=== PATIENT | male | born 1955 ===

== ENCOUNTER 2020-06-29 06:09 | Outpatient (REF) | payer BC, SELFPAY ==
[2020-06-29 11:13] LABS: MANUAL DIFF FLAG NO
[2020-06-29 11:33] LABS: Basophils Absolute Auto 0.1 X10*3/uL (0.0-0.2); Basophils Percent Auto 0.8 % (0-2); Eosinophils Absolute Auto 0.6 X10*3/uL (0.0-0.4); Eosinophils Percent Auto 4.4 % (0-4); Hematocrit 47.5 % (42-52); Hemoglobin 15.5 g/dl (14.0-18.0); Imm Gran Abs Auto 0.13 X10*3/uL (0.00-0.03); Imm Gran Pct Auto 0.9 % (0.0-0.4); Lymphocytes Absolute Auto 4.3 X10*3/uL (1.2-4.9); Lymphocytes Percent Auto 30.5 % (20-40); Mean Corpuscular HGB Conc 32.6 g/dl (31.0-36.0); Mean Corpuscular Volume 92.1 fL (80-98); Mean Platelet Volume 11.8 fL (9.4-12.4); Monocytes Absolute Auto 1.1 X10*3/uL (0.1-1.2); Monocytes Percent Auto 7.8 % (2-11); Neutrophils Absolute Auto 7.9 X10*3/uL (2.0-8.3); Neutrophils Percent Auto 55.6 % (45-73); Platelet Count 298 X10*3/uL (160-400); Red Blood Count 5.16 X10*6/uL (4.60-5.80); Red Cell Distribution Width 13.2 % (11.0-16.0); White Blood Count 14.2 X10*3/uL (4.8-10.8)
[2020-06-29 12:13] LABS: Alanine Aminotransferase 22 U/L (0-40); Anion Gap 17 (12-20); Aspartate Amino Transferase 11 U/L (5-37); Blood Urea Nitrogen 33 mg/dL (9-16); Calcium 9.5 mg/dL (8.4-10.2); Carbon Dioxide 24 mmol/L (22-29); Chloride 103 mmol/L (96-108); Cholesterol 201 mg/dL; Estimated Glomerular Filt Rate > 60; Glucose Fasting 222 mg/dL (60-99); HDL Cholesterol 41 mg/dL; LDL Cholesterol Calculated 86 mg/dl; PSA,Total (Free>4and<10) 2.76 ng/mL (0.00-4.00); Potassium 4.5 mmol/L (3.3-5.1); Sodium 139 mmol/L (135-145); Triglycerides 370 mg/dL
== END 2020-06-29 06:10 | disposition home or self-care (01) ==
LOC: HO.HMGCLDS 06:09
PROVIDERS: PCP Internal Medicine; Visit Provider Internal Medicine
DX: Z00.01 Encounter for general adult medical examination with abnormal findings (principal); E11.65 Type 2 diabetes mellitus with hyperglycemia; I10 Essential (primary) hypertension; Z12.5 Encounter for screening for malignant neoplasm of prostate; Z80.42 Family history of malignant neoplasm of prostate
CPT/HCPCS: 36415; 80048; 80061; 84153; 84450; 84460; 85025

== ENCOUNTER 2020-10-06 06:26 | Outpatient (REF) | payer BC, SELFPAY ==
[2020-10-06 11:39] LABS: Estimated Average Glucose 226 mg/dL; Hemoglobin A1c % 9.5 %
[2020-10-06 12:18] LABS: Alanine Aminotransferase 17 U/L (0-40); Anion Gap 15 (12-20); Aspartate Amino Transferase 13 U/L (5-37); Blood Urea Nitrogen 26 mg/dL (9-16); Calcium 9.3 mg/dL (8.4-10.2); Carbon Dioxide 20 mmol/L (22-29); Chloride 108 mmol/L (96-108); Cholesterol 190 mg/dL; Estimated Glomerular Filt Rate > 60; Glucose Fasting 195 mg/dL (60-99); HDL Cholesterol 39 mg/dL; LDL Cholesterol Calculated 95 mg/dl; Potassium 4.6 mmol/L (3.3-5.1); Sodium 138 mmol/L (135-145); Triglycerides 281 mg/dL
== END 2020-10-06 06:27 | disposition home or self-care (01) ==
LOC: HO.HMGCLDS 06:26
PROVIDERS: PCP Internal Medicine; Visit Provider Internal Medicine
DX: I10 Essential (primary) hypertension (principal); E11.65 Type 2 diabetes mellitus with hyperglycemia; E78.1 Pure hyperglyceridemia
CPT/HCPCS: 36415; 80048; 80061; 83036; 84450; 84460

== ENCOUNTER 2020-11-06 09:58 | Emergency (ER) | payer BC, SELFPAY ==
--- NOTE | ~2020-11-06 | CT_ITS ---
EXAMINATION: CT ABDOMEN AND PELVIS WITHOUT CONTRAST CLINICAL INFORMATION: Lower abdominal pain COMPARISON: CT 01/15/2018 TECHNIQUE: Multidetector volumetric imaging was performed from the superior aspect of the liver through the pubic symphysis. Sagittal and coronal reformatted images were obtained on the technologist's workstation. This CT examination was performed using dose optimization techniques as appropriate, variously including the following: *Automated exposure control *Adjustment of mA and/or kV according to patient size (this includes techniques or standardized protocols for targeted exams where dose is matched to indication/reason for exam; i.e. extremities or head) *Use of iterative reconstruction technique DLP: 581 mGy-cm FINDINGS: LUNG BASES: Linear atelectasis/scarring at the right lung base. LIVER, GALLBLADDER, AND BILIARY TREE: The liver is normal in size, shape, and attenuation. No focal hepatic lesion or biliary ductal dilatation is present. The gallbladder is unremarkable with no evidence of radiopaque gallstones, gallbladder wall thickening, or obvious pericholecystic inflammatory changes. PANCREAS: Unremarkable. SPLEEN: Unremarkable. ADRENAL GLANDS: Unremarkable. KIDNEYS AND URETERS: The kidneys are normal in size, shape, and attenuation. No hydronephrosis, hydroureter, or calculi seen. Mild bilateral perinephric stranding. There are a few small cysts which appear stable, better evaluated on the prior contrast enhanced study. BLADDER: Unremarkable. GASTROINTESTINAL TRACT: Diffuse colonic diverticulosis, most prominently involving the sigmoid colon. There is an area of fat stranding anterior to the sigmoid, adjacent to the dome of the urinary bladder, with a thin rim of soft tissue attenuation surrounding fat suggesting epiploic appendagitis with or without mild diverticulitis. No abscess. No obstruction. ABDOMINAL WALL: Fat-containing inguinal hernias. LYMPH NODES: Normal. VASCULAR: Unremarkable. PELVIC VISCERA: Enlarged prostate projecting into the base of the bladder. OSSEOUS STRUCTURES: Unremarkable. CT/CT abdomen pelvis wo con IMPRESSION: Epiploic appendagitis with or without mild diverticulitis of the sigmoid colon. No abscess or obstruction. Enlarged prostate.
[2020-11-06 10:10] VITALS: BP 145/96; PULSE 102; RESP 18; TEMP 36.6; O2SAT 97; BMI 27.3
--- NOTE | 2020-11-06 10:17 | ED_ITS ---
HPI - Abdominal Pain General Chief Complaint: Abdominal Pain Stated Complaint: LOWER ABD PAIN Time Seen by Provider: 11/06/20 10:14 Source: patient and family (Spouse) Mode of arrival: ambulatory Limitations: no limitations History of Present Illness HPI narrative: 65-year-old male came in for evaluation of lower abdominal pain. Pain is suprapubic and left lower quadrant area, pain started 3 days ago, pain is constant, pain is worsening by movement and nothing relieves the pain, described as localized to the lower abdomen moderate in intensity 5/10, no other associated symptoms no urinary frequency, no hematuria, no dysuria, no diarrhea. Patient had similar pain before and was diagnosed with diverticulitis. Related Data Home Medications Medication Instructions Recorded Confirmed flu vacc [id number] 6mos up(PF) ml IM 04/02/20 07/02/20 Previous Rx's Medication Instructions Recorded lisinopril 20 mg tablet 20 mg PO DAILY #90 tab 09/01/20 blood sugar diagnostic See Rx Instructions MISCELLANEOUS 10/08/20 BID #100 strip metformin 1,000 mg tablet 1,000 mg PO BID 90 Days #180 tab 10/08/20 bupropion HCl 150 mg tablet,12 hr 150 mg PO QAM #90 tab 11/05/20 sustained-release empagliflozin 25 mg tablet 25 mg PO QAM #30 tab 11/05/20 ciprofloxacin HCl [Cipro] 500 mg PO BID #14 tab 11/06/20 ibuprofen 400 mg PO Q8H #20 tab 11/06/20 metronidazole [Flagyl] 500 mg PO BID #14 tab 11/06/20 Allergies Allergy/AdvReac Type Severity Reaction Status Date / Time barium sulfate Allergy Unknown rash Verified 10/08/20 10:11 [email or web address] Allergy Unknown rash Verified 10/08/20 10:11 Review of Systems Review of Systems All other systems are reviewed and are negative Constitutional: Reports as per HPI and Reports no additional constitutional complaints Eyes: Reports as per HPI and Reports no additional eye complaints Reports system reviewed and no additional complaints, except as documented Cardiovascular: Reports as per HPI and Reports no additional cardiovascular complaints Respiratory: Reports as per HPI and Reports no additional respiratory complaints Gastrointestinal: Reports as per HPI and Reports no additional gastrointestinal complaints Genitourinary: Reports no additional female genitourinary complaints Musculoskeletal: Reports no additional musculoskeletal complaints Skin/Breast: Reports system reviewed and no additional complaints, except as docu Psychiatric: Reports no additional psychiatric complaints Endocrine: Reports no additional endocrine complaints Hematologic/Lymphatic: Reports no additional hematologic/lymphatic complaints Allergic/Immunologic: Reports no additional allergic/immunologic complaints Reports system reviewed and no additional complaints, except as documented and Reports Abnormal speech present Physical Exam Vital Signs: Vital Signs: Last Vital Signs Temp 98.2 F 11/06/20 11:49 Pulse 90 11/06/20 11:49 Resp 18 11/06/20 11:49 BP 131/74 11/06/20 11:49 Pulse Ox 98 11/06/20 11:49 Body Mass Index 27.3 Vital signs have been reviewed as appeared to be correct. Blood pressure in a high range. Heart rate elevated. Respiration rate normal. Temperature normal. Oxygen saturation normal. Appearance: Alert. Oriented X3. No acute distress. Head: Normal external exam. Normocephalic. Atraumatic. No Odom signs noted. No raccoon eyes noted Eyes: PERRLA. EOMI. Conjunctiva and sclera normal. Eyelids normal. ENT: TM's Normal. Pharynx normal. Uvula midline. Moist mucous membranes. No trismus noted. No drooling noted. No muffled voice noted. Neck: Normal inspection. Neck supple. FROM. No adenopathy. Thyroid Normal. No meningeal signs. No neck mass noted. CVS: Normal heart rate and rhythm. Heart sound normal. No murmurs noted. Pulses normal throughout. Respiratory: No respiratory distress. Painless inspiration. Breath sounds normal. No wheezes/rales/rhonchi noted. Chest nontender. No accessory muscle usage noted or decreased air movement noted. Abdomen: Soft, mild suprapubic tenderness no rebound tenderness, no guarding.. Bowel sounds normal in all 4 quadrants. No distention noted. No organomegaly noted. No visible injury noted. Back: No CVA tenderness. Full range of motion noted. Skin: Skin warm and dry. Normal skin color. Normal skin turgor. No rashes/lesions/lacerations noted. Extremities: No lower extremity edema. Extremities exhibit normal range of motion. Extremities nontender. Neuro: Oriented X 3. No motor deficit. No sensory deficit. Reflexes normal. Course Course Course Narrative: Assessment and plan. 65 years old male in with abdominal pain, CT scan showed this mixture of epiploic appendagitis and mild diverticulitis, since patient had a history of diverticulitis and mild leukocytosis will consider antibiotic after counseling with the patient and family, patient also was instructed to take NSAIDs and follow up with surgery. MDM - Abdominal Pain Lab Data Attestation: I reviewed the patient's lab results. Result diagrams: 11/06/20 10:41 11/06/20 10:41 Labs: Lab Results 11/06/20 11/06/20 11/06/20 Range/Units 10:41 10:41 12:00 WBC 12.3 H (4.8-10.8) X10*3/uL RBC 5.30 (4.60-5.80) X10*6/uL Hgb 15.5 (14.0-18.0) g/dl Hct 47.1 (42-52) % MCV 88.9 (80-98) fL MCH 29.2 (27.0-33.0) pg MCHC 32.9 (31.0-36.0) g/dl RDW 13.9 (11.0-16.0) % Plt Count 280 (160-400) X10*3/uL MPV 10.6 (9.4-12.4) fL Immature Gran % (Auto) 0.4 (0.0-0.4) % Neut % (Auto) 69.5 (45-73) % Lymph % (Auto) 19.6 L (20-40) % [place] % (Auto) 6.7 (2-11) % Eos % (Auto) 3.0 (0-4) % Baso % (Auto) 0.8 (0-2) % Lymph # (Auto) 2.4 (1.2-4.9) X10*3/uL [place] # (Auto) 0.8 (0.1-1.2) X10*3/uL Eos # (Auto) 0.4 (0.0-0.4) X10*3/uL Baso # (Auto) 0.1 (0.0-0.2) X10*3/uL Abs Immat Gran (auto) 0.05 H (0.00-0.03) X10*3/uL Absolute Neuts (auto) 8.6 H (2.0-8.3) X10*3/uL Absolute Nucleated RBC 0.000 (0.0-0.012) X10*3/uL Nucleated RBC % (auto) 0.0 (0.0-0.2) /100WBC Sodium 138 (135-145) mmol/L Potassium 4.5 (3.3-5.1) mmol/L Chloride 107 (96-108) mmol/L Carbon Dioxide 20 L (22-29) mmol/L Anion Gap 16 (12-20) BUN 22 H (9-16) mg/dL Creatinine 0.87 (0.5-1.4) mg/dL Estim Creat Clear Calc 80.8 Estimated GFR > 60 Random Glucose 145 H (60-115) mg/dL Calcium 10.0 D (8.4-10.2) mg/dL Total Bilirubin 0.4 (0.0-1.0) mg/dL Direct Bilirubin 0.2 (0.0-0.5) mg/dL AST 13 (5-37) U/L ALT 22 (0-40) U/L Alkaline Phosphatase 54 (39-117) U/L Total Protein 7.4 (6.5-8.0) g/dL Albumin 4.4 (3.5-5.0) g/dL Lipase 29 (8-78) U/L Urine Color YELLOW Urine Appearance CLEAR Urine pH 6.0 (5.0-8.0) Ur Specific [place] >= 1.030 H (1.005-1.025) Urine Protein NEG (NEG-TRACE) MG/DL Urine Glucose (UA) 500 H (NEG) MG/DL Urine Ketones NEG (NEG) MG/DL Urine Blood NEG (NEG) Urine Nitrite NEG (NEG) Ur Leukocyte Esterase NEG (NEG) Imaging Data CT scan - abdomen: Radiologist's impression: Epiploic appendagitis with or without mild diverticulitis of the sigmoid colon. No abscess or obstruction. Discharge Plan Discharge Clinical Impression: Epiploic appendagitis, Diverticulitis Patient Disposition: Home, Self-Care Instructions: Diverticulitis (ED) Prescriptions: New ibuprofen 400 mg tablet 400 mg PO Q8H Qty: 20 RF: 0 ciprofloxacin HCl [Cipro] 500 mg tablet 500 mg PO BID Qty: 14 RF: 0 metronidazole [Flagyl] 500 mg tablet 500 mg PO BID Qty: 14 RF: 0 No Action lisinopril 20 mg tablet 20 mg PO DAILY Qty: 90 RF: 0 empagliflozin [Jardiance] 25 mg tablet 25 mg PO QAM Qty: 30 RF: 0 bupropion HCl 150 mg tablet sustained-release 12 hr 150 mg PO QAM Qty: 90 RF: 3 Fluzone Quad (PF) 60 mcg (15 mcg x 4)/0.5 mL syringe IM RF: 0 metformin 1,000 mg tablet 1,000 mg PO BID 90 Days Qty: 180 RF: 1 OneTouch Verio test strips Strip See Rx Instructions miscellaneous BID Qty: 100 RF: 4 Referrals: Alex Porter MD [Physician] - 2 days PMFSH Past Medical History Medical History Depression Diabetes mellitus with hyperglycemia, without long-term current use of insulin Essential hypertension Family history of prostate cancer Hypertriglyceridemia Lesion of left nipple Prostate cancer screening Seasonal allergic rhinitis Surgical History H/O arthroscopy of shoulder History of basal cell carcinoma excision History of colonoscopy History of inguinal hernia repair History of tonsillectomy Family History Family History Father Stroke Aneurysm Cancer of prostate Mother Asbestos exposure Lung cancer Smoker Maternal Grandfather No problems noted. Maternal Grandmother No problems noted. Paternal Grandfather No problems noted. Paternal Grandmother No problems noted. Maternal Aunt Diabetes mellitus Sister No problems noted. Social History Social History Alcohol intake: current Alcohol intake frequency: a few times a week Patient Tobacco Use Status: Current everyday Tobacco user Cigarettes Per Day: 10 Smoked in Last 30 Days: Yes Use of substances other than those prescribed or required for medical reasons: No Advance Directives: Yes Advance Directives Information Provided: Yes Advance Directives on File: No
[2020-11-06] MEDS: 0.9 % Sodium Chloride 1,000 ML 999 ML IVCONT (10:42)
[2020-11-06 10:49] LABS: Basophils Absolute Auto 0.1 X10*3/uL (0.0-0.2); Basophils Percent Auto 0.8 % (0-2); Eosinophils Absolute Auto 0.4 X10*3/uL (0.0-0.4); Hematocrit 47.1 % (42-52); Hemoglobin 15.5 g/dl (14.0-18.0); Imm Gran Abs Auto 0.05 X10*3/uL (0.00-0.03); Imm Gran Pct Auto 0.4 % (0.0-0.4); Lymphocytes Absolute Auto 2.4 X10*3/uL (1.2-4.9); Lymphocytes Percent Auto 19.6 % (20-40); MANUAL DIFF FLAG NO; Mean Corpuscular HGB Conc 32.9 g/dl (31.0-36.0); Mean Corpuscular Hemoglobin 29.2 pg (27.0-33.0); Mean Corpuscular Volume 88.9 fL (80-98); Mean Platelet Volume 10.6 fL (9.4-12.4); Monocytes Absolute Auto 0.8 X10*3/uL (0.1-1.2); Monocytes Percent Auto 6.7 % (2-11); Neutrophils Absolute Auto 8.6 X10*3/uL (2.0-8.3); Neutrophils Percent Auto 69.5 % (45-73); Platelet Count 280 X10*3/uL (160-400); Red Cell Distribution Width 13.9 % (11.0-16.0); White Blood Count 12.3 X10*3/uL (4.8-10.8)
[2020-11-06 11:36] LABS: Alanine Aminotransferase 22 U/L (0-40); Albumin Level 4.4 g/dL (3.5-5.0); Alkaline Phosphatase 54 U/L (39-117); Anion Gap 16 (12-20); Aspartate Amino Transferase 13 U/L (5-37); Bilirubin Direct 0.2 mg/dL (0.0-0.5); Bilirubin Total 0.4 mg/dL (0.0-1.0); Blood Urea Nitrogen 22 mg/dL (9-16); Carbon Dioxide 20 mmol/L (22-29); Chloride 107 mmol/L (96-108); Creatinine Clr Calc Pharmacy 80.8; Estimated Glomerular Filt Rate > 60; Glucose Random 145 mg/dL (60-115); Lipase 29 U/L (8-78); Potassium 4.5 mmol/L (3.3-5.1); Sodium 138 mmol/L (135-145); Total Protein 7.4 g/dL (6.5-8.0)
[2020-11-06 11:49] VITALS: BP 131/74; PULSE 90; RESP 18; TEMP 36.8; O2SAT 98
[2020-11-06 12:18] LABS: Glucose Urine UA 500 MG/DL (NEG); Leukocyte Esterase Urine NEG (NEG); Nitrite Urine NEG (NEG); Specific Gravity - Urine >= 1.030 (1.005-1.025); Urine Blood NEG (NEG); Urine Ketones NEG (NEG); Urine Protein NEG (NEG-TRACE)
[2020-11-06 12:22] LABS: Appearance Urine CLEAR; Color Urine YELLOW
--- NOTE | 2020-11-06 12:35 | PC.NURSE ---
MD at bedside to discuss results of CT and labs. Plan to DC home.
--- NOTE | 2020-11-06 12:37 | PC.NURSE ---
Unable to add VS to worklist: VS as follows at this time: BP:147/90 HR:87 Sat:96% on room air RR:18
== END 2020-11-06 12:57 | disposition home or self-care (01) ==
PROVIDERS: Emergency Provider Emergency Medicine; PCP Internal Medicine
DX: K57.92 Diverticulitis of intestine, part unspecified, without perforation or abscess without bleeding (principal); K63.89 Other specified diseases of intestine; E11.9 Type 2 diabetes mellitus without complications; Z79.84 Long term (current) use of oral hypoglycemic drugs
CPT/HCPCS: 36415; 74176; 80048; 80076; 81003; 83690; 85025; 96360; 99284

== ENCOUNTER → 2020-11-24 14:42 | Outpatient (BNVA) | payer BC, SELFPAY | PROVIDERS: PCP Internal Medicine; Referring Provider Internal Medicine; Visit Provider Surgery ==

== ENCOUNTER 2021-01-04 06:46 | Outpatient (REF) | payer BC, SELFPAY ==
[2021-01-04 12:05] LABS: Alanine Aminotransferase 25 U/L (0-40); Anion Gap 14 (12-20); Aspartate Amino Transferase 15 U/L (5-37); Blood Urea Nitrogen 21 mg/dL (9-16); Calcium 9.9 mg/dL (8.4-10.2); Carbon Dioxide 20 mmol/L (22-29); Chloride 108 mmol/L (96-108); Cholesterol 194 mg/dL; Estimated Glomerular Filt Rate > 60; Glucose Fasting 145 mg/dL (60-99); HDL Cholesterol 42 mg/dL; LDL Cholesterol Calculated 97 mg/dl; Potassium 4.5 mmol/L (3.3-5.1); Sodium 137 mmol/L (135-145); Triglycerides 279 mg/dL
[2021-01-04 12:53] LABS: Creatinine Urine 121.46 mg/dL; Microalbum/Creatinine Ratio Ur 7.4 ug/mg cr
[2021-01-04 13:22] LABS: Estimated Average Glucose 163 mg/dL; Hemoglobin A1c % 7.3 %
== END 2021-01-04 06:47 | disposition home or self-care (01) ==
LOC: HO.HMGCLDS 06:46
PROVIDERS: PCP Internal Medicine; Visit Provider Internal Medicine
DX: E11.65 Type 2 diabetes mellitus with hyperglycemia (principal); E78.1 Pure hyperglyceridemia; I10 Essential (primary) hypertension
CPT/HCPCS: 36415; 80048; 80061; 82043; 83036; 84450; 84460

== ENCOUNTER 2021-04-01 06:34 | Outpatient (REF) | payer BC, SELFPAY ==
[2021-04-01 12:07] LABS: Estimated Average Glucose 163 mg/dL; Hemoglobin A1c % 7.3 %
[2021-04-01 12:16] LABS: Alanine Aminotransferase 23 U/L (0-40); Anion Gap 15 (12-20); Aspartate Amino Transferase 12 U/L (5-37); Blood Urea Nitrogen 25 mg/dL (9-16); Calcium 9.9 mg/dL (8.4-10.2); Carbon Dioxide 22 mmol/L (22-29); Chloride 107 mmol/L (96-108); Cholesterol 185 mg/dL; Estimated Glomerular Filt Rate > 60; Glucose Fasting 166 mg/dL (60-99); HDL Cholesterol 41 mg/dL; LDL Cholesterol Calculated 112 mg/dl; Potassium 5.1 mmol/L (3.3-5.1); Sodium 139 mmol/L (135-145); Triglycerides 163 mg/dL
== END 2021-04-01 06:35 | disposition home or self-care (01) ==
LOC: HO.HMGCLDS 06:34
PROVIDERS: PCP Internal Medicine; Visit Provider Internal Medicine
DX: E11.65 Type 2 diabetes mellitus with hyperglycemia (principal); E78.1 Pure hyperglyceridemia; I10 Essential (primary) hypertension
CPT/HCPCS: 36415; 80048; 80061; 83036; 84450; 84460

== ENCOUNTER 2021-07-12 06:14 | Outpatient (REF) | payer BC, SELFPAY ==
[2021-07-12 12:04] LABS: Estimated Average Glucose 177 mg/dL; Hemoglobin A1c % 7.8 %
[2021-07-12 12:15] LABS: Alanine Aminotransferase 42 U/L (0-40); Anion Gap 14 (12-20); Aspartate Amino Transferase 18 U/L (5-37); Blood Urea Nitrogen 26 mg/dL (9-16); Calcium 9.5 mg/dL (8.4-10.2); Carbon Dioxide 21 mmol/L (22-29); Chloride 108 mmol/L (96-108); Cholesterol 176 mg/dL; Estimated Glomerular Filt Rate > 60; Glucose Fasting 146 mg/dL (60-99); HDL Cholesterol 41 mg/dL; LDL Cholesterol Calculated 98 mg/dl; Potassium 4.3 mmol/L (3.3-5.1); Sodium 139 mmol/L (135-145); Triglycerides 187 mg/dL
[2021-07-12 12:29] LABS: Creatinine Urine 89.18 mg/dL
== END 2021-07-12 06:15 | disposition home or self-care (01) ==
LOC: HO.HMGCLDS 06:14
PROVIDERS: Visit Provider Internal Medicine
DX: E11.65 Type 2 diabetes mellitus with hyperglycemia (principal); I10 Essential (primary) hypertension; E78.2 Mixed hyperlipidemia
CPT/HCPCS: 36415; 80048; 80061; 82043; 83036; 84450; 84460

== ENCOUNTER 2021-10-14 06:22 | Outpatient (REF) | payer BC, SELFPAY ==
[2021-10-14 11:37] LABS: Estimated Average Glucose 166 mg/dL; Hemoglobin A1c % 7.4 %
[2021-10-14 11:49] LABS: Alanine Aminotransferase 27 U/L (0-40); Anion Gap 15 (12-20); Aspartate Amino Transferase 14 U/L (5-37); Blood Urea Nitrogen 27 mg/dL (9-16); Calcium 9.7 mg/dL (8.4-10.2); Carbon Dioxide 19 mmol/L (22-29); Chloride 107 mmol/L (96-108); Cholesterol 196 mg/dL; Estimated Glomerular Filt Rate > 60; Glucose Fasting 179 mg/dL (60-99); HDL Cholesterol 46 mg/dL; LDL Cholesterol Calculated 117 mg/dl; Potassium 4.6 mmol/L (3.3-5.1); Sodium 136 mmol/L (135-145); Triglycerides 165 mg/dL
== END 2021-10-14 06:23 | disposition home or self-care (01) ==
LOC: HO.HMGCLDS 06:22
PROVIDERS: Visit Provider Internal Medicine
DX: E11.65 Type 2 diabetes mellitus with hyperglycemia (principal); E78.2 Mixed hyperlipidemia; I10 Essential (primary) hypertension; F17.200 Nicotine dependence, unspecified, uncomplicated
CPT/HCPCS: 36415; 80048; 80061; 83036; 84450; 84460

== ENCOUNTER 2021-11-16 19:15 | Observation (INO) | payer BC, SELFPAY ==
--- NOTE | ~2021-11-16 | XR_ITS ---
EXAMINATION: XR RIBS, RIGHT CLINICAL INFORMATION: Fall with pain COMPARISON: None TECHNIQUE: 3 views of the right ribs were obtained. FINDINGS: Lungs are clear. There is mild elevation of the right hemidiaphragm. No consolidation, pneumothorax, or pleural effusion. The cardiomediastinal silhouette and pulmonary vasculature are normal. Osseous structures are unremarkable. Ribs are intact. No displaced fractures are identified. XR/XR ribs RT min 3V w CXR1V IMPRESSION: No acute intrathoracic disease. Mild elevation of the right hemidiaphragm.
--- NOTE | ~2021-11-16 | CT_ITS ---
CT/CT head/brain wo con IMPRESSION: 1. No acute intracranial pathology. 2. Approximately 1 cm cystic focus in the right temporal lobe, most likely a chronic finding. This may be further assessed with nonemergent brain MRI. EXAMINATION: CT HEAD WITHOUT CONTRAST CLINICAL INFORMATION: Status post fall COMPARISON: None TECHNIQUE: Contiguous axial imaging was performed from the skull base to vertex without intravenous administration of contrast. This CT examination was performed using dose optimization techniques as appropriate, variously including the following: *Automated exposure control *Adjustment of mA and/or kV according to patient size (this includes techniques or standardized protocols for targeted exams where dose is matched to indication/reason for exam; i.e. extremities or head) *Use of iterative reconstruction technique DLP: 587 mGy-cm FINDINGS: There is no evidence of acute intracranial hemorrhage or territorial infarction. No abnormal mass effect or midline shift is seen. [place] to white matter differentiation is well preserved. No extra-axial fluid collections are identified. The ventricles are normal in size. There is an approximately 1 cm, chronic appearing cystic focus in the right temporal lobe. The osseous structures and soft tissues are normal. The mastoid air cells and visualized portions of the paranasal sinuses are well aerated.
--- NOTE | ~2021-11-16 | CT_ITS ---
EXAMINATION: CT CHEST WITHOUT CONTRAST CLINICAL INFORMATION: Status post fall COMPARISON: CT abdomen pelvis 11/06/2020 TECHNIQUE: Multidetector volumetric CT imaging of the chest was done. Axial MIP volume rendering provided. Sagittal and coronal reformatted images were obtained. This CT examination was performed using dose optimization techniques as appropriate, variously including the following: *Automated exposure control *Adjustment of mA and/or kV according to patient size (this includes techniques or standardized protocols for targeted exams where dose is matched to indication/reason for exam; i.e. extremities or head) *Use of iterative reconstruction technique DLP: 295 mGy-cm FINDINGS: LUNGS: The lungs are clear with no evidence of inflammation or nodules. MEDIASTINUM: The mediastinum is unremarkable aside from mild coronary calcifications. PLEURA: There is no pleural effusion. No pleural mass or thickening. AXILLA: No lymphadenopathy. UPPER ABDOMEN: Colonic diverticula are seen. Partially visualized left renal cyst previously better evaluated OSSEOUS STRUCTURES: A suture anchor is present in the right humerus. Minimal degenerative changes are seen in the spine. No fractures are seen. CT/CT chest wo con IMPRESSION: No evidence of a traumatic injury in the chest. No rib fractures are seen. Fleischner guidelines were followed.
[2021-11-16 19:27] VITALS: BP 117/62; PULSE 100; O2SAT 97
[2021-11-16 19:29] VITALS: BP 151/88; PULSE 97; RESP 18; TEMP 36.8; O2SAT 97; BMI 25.8
[2021-11-16 19:32] VITALS: O2SAT 97
--- NOTE | 2021-11-16 19:37 | ED_ITS ---
HPI - Syncope General Chief Complaint: Syncope Stated Complaint: syncope Time Seen by Provider: 11/16/21 19:24 Source: patient and family Mode of arrival: EMS Limitations: no limitations History of Present Illness HPI narrative: Patient's CT for 11 years old with history of type 2 DM, hypertension no cardiac issues except for episodes of palpitation with workup negative was in the kitchen try to remove the trash felt lightheaded eyes uprolled and patient slumped down no head injury was nearby superficial abrasion to the right lower ribs patient did not feel any chest pain or palpitations never had similar episode of syncope in the past no seizure activity noticed , whole episode lasted for 15-30 seconds no confusion patient was healthy before blood sugar was 156 Related Data Home Medications Medication Instructions Recorded Confirmed flu vacc [id number] 6mos up(PF) 60 ml IM 04/02/20 11/08/21 mcg(15 mcgx4)/0.5 mL IM syringe Previous Rx's Medication Instructions Recorded blood sugar diagnostic (OneTouch See Rx Instructions miscellaneous 10/08/20 Verio test strips) BID #100 strips ibuprofen 400 mg tablet 400 mg PO Q8H #20 tabs 11/06/20 empagliflozin 25 mg tablet 25 mg PO QAM #30 tabs 12/13/20 (Jardiance) rosuvastatin 5 mg tablet 5 mg PO 3XW 90 days #39 tabs 04/04/21 metformin 1,000 mg tablet 1,000 mg PO BID 90 days #180 tabs 04/12/21 lisinopril 20 mg tablet 20 mg PO DAILY #90 tabs 08/29/21 bupropion HCl 150 mg tablet,12 hr 150 mg PO QAM #90 tabs 10/06/21 sustained-release triamcinolone acetonide 0.025 % 1 appl topical DAILY 2 weeks #15 11/08/21 topical cream grams Allergies Allergy/AdvReac Type Severity Reaction Status Date / Time barium sulfate Allergy Unknown rash Verified 11/16/21 19:26 [email or web address] Allergy Unknown rash Verified 11/16/21 19:26 Review of Systems Review of Systems: Yes all other systems are reviewed and are negative PMFSH Past Medical History Medical History Depression Diabetes mellitus with hyperglycemia, without long-term current use of insulin Eczema of lower leg Epiploic appendagitis Essential hypertension Family history of prostate cancer Hx of skin cancer, basal cell Hypertriglyceridemia Lesion of left nipple Lesion of left nipple Mixed dyslipidemia Prostate cancer screening RBBB (right bundle branch block) Seasonal allergic rhinitis Sinus tachycardia by electrocardiogram Smoker unmotivated to quit Surgical History H/O arthroscopy of shoulder History of basal cell carcinoma excision History of colonoscopy History of inguinal hernia repair History of tonsillectomy Family History Family History Father Stroke Aneurysm Cancer of prostate Mother Asbestos exposure Lung cancer Smoker Maternal Grandfather No problems noted. Maternal Grandmother No problems noted. Paternal Grandfather No problems noted. Paternal Grandmother No problems noted. Maternal Aunt Diabetes mellitus Sister No problems noted. Social History Social History Housing: House Alcohol intake: current Alcohol intake frequency: a few times a week Alcohol type: wine Patient Tobacco Use Status: Former Tobacco user Cigarettes Per Day: 10 Smoked in Last 30 Days: No e-Cigarette/Vaping Use: Never Used Use of substances other than those prescribed or required for medical reasons: Yes Substance Use Type: Marijuana Substance Use Frequency: Occasionally Advance Directives: No Advance Directives Information Provided: Yes service: No Current occupational status: employed Cognitive needs: No Hearing needs: No Vision needs: Yes Physical Exam Vital Signs: Vital Signs: Last Vital Signs Temp 98.2 F 11/16/21 19:29 Pulse 91 11/17/21 00:41 Resp 20 11/17/21 00:41 BP 127/81 11/17/21 00:41 Pulse Ox 97 11/17/21 00:41 O2 Del Method 11/17/21 00:41 BMI result Body Mass Index 25.8 Appearance: Alert. Oriented X3. No acute distress. Eyes: PERRLA, No Nystagmus ENT: Pharynx normal. Oral Mucosa moist Neck: Normal inspection. Neck supple. CVS: Normal heart rate and rhythm. Pulses normal. Respiratory: No respiratory distress. Equal air entry bilateral, no wheezing/rales/rhonchi Abdomen: Soft and nontender. Bowel sounds are present, no mass palpable, no CVA tenderness Skin: Skin warm and dry. Normal skin color. Normal skin turgor. Extremities: No lower extremity edema. No calf tenderness Neuro: Oriented X 3. No motor deficit. No sensory deficit.No cerebellar signs , cranial nerves II-XII intact MDM - Syncope MDM Narrative Medical decision making narrative: Patient with history of tachycardia in the past came here for syncope episode workup is negative sofar D-dimer negative for PE,normal EKGs and labs CT scan of the chest and the head negative. Will admit patient for further workup for syncope Lab Data Attestation: I reviewed the patient's lab results. Result diagrams: 11/16/21 20:38 11/16/21 20:38 Labs: Lab Results 11/16/21 11/16/21 11/16/21 Range/Units 20:38 20:38 20:38 WBC 12.7 H (4.8-10.8) X10*3/uL RBC 5.22 (4.60-5.80) X10*6/uL Hgb 15.4 (14.0-18.0) g/dl Hct 46.0 (42.0-52.0) % MCV 88.1 (80.0-98.0) fL MCH 29.5 (27.0-33.0) pg MCHC 33.5 (31.0-36.0) g/dl RDW 13.2 (11.0-16.0) % Plt Count 231 (160-400) X10*3/uL MPV 10.4 (9.4-12.4) fL Immature Gran % (Auto) 0.5 H (0.0-0.4) % Neut % (Auto) 68.0 (45-73) % Lymph % (Auto) 18.8 L (20-40) % [place] % (Auto) 7.7 (2-11) % Eos % (Auto) 4.4 H (0-4) % Baso % (Auto) 0.6 (0-2) % Lymph # (Auto) 2.4 (1.2-4.9) X10*3/uL [place] # (Auto) 1.0 (0.1-1.2) X10*3/uL Eos # (Auto) 0.6 H (0.0-0.4) X10*3/uL Baso # (Auto) 0.1 (0.0-0.2) X10*3/uL Abs Immat Gran (auto) 0.06 H (0.00-0.03) X10*3/uL Absolute Neuts (auto) 8.6 H (2.0-8.3) x10*3/uL Absolute Nucleated RBC 0.000 (0.0-0.012) X10*3/uL Nucleated RBC % (auto) 0.0 (0.0-0.2) /100WBC PT 11.7 (10.0-13.1) SEC INR 1.0 (0.9-1.1) D-Dimer High Sensitivty NG/ML Sodium 137 (135-145) mmol/L Potassium 4.0 (3.3-5.1) mmol/L Chloride 110 H (96-108) mmol/L Carbon Dioxide 17 L (22-29) mmol/L Anion Gap 14 (12-20) BUN 21 H (9-16) mg/dL Creatinine 0.95 (0.5-1.4) mg/dL Estim Creat Clear Calc 67.4 Estimated GFR > 60 Random Glucose 172 H (60-115) mg/dL Calcium 8.9 D (8.4-10.2) mg/dL Total Bilirubin 0.2 (0.0-1.0) mg/dL AST 20 D (5-37) U/L ALT 36 (0-40) U/L Alkaline Phosphatase 56 (39-117) U/L Troponin I High Sens (<3.5-35.0) ng/L Total Protein 6.9 (6.5-8.0) g/dL Albumin 4.3 (3.5-5.0) g/dL COVID-19 (DANIEL) (Negative) COVID-19 Clin Com 11/16/21 11/16/21 11/16/21 Range/Units 20:38 20:38 20:38 WBC (4.8-10.8) X10*3/uL RBC (4.60-5.80) X10*6/uL Hgb (14.0-18.0) g/dl Hct (42.0-52.0) % MCV (80.0-98.0) fL MCH (27.0-33.0) pg MCHC (31.0-36.0) g/dl RDW (11.0-16.0) % Plt Count (160-400) X10*3/uL MPV (9.4-12.4) fL Immature Gran % (Auto) (0.0-0.4) % Neut % (Auto) (45-73) % Lymph % (Auto) (20-40) % [place] % (Auto) (2-11) % Eos % (Auto) (0-4) % Baso % (Auto) (0-2) % Lymph # (Auto) (1.2-4.9) X10*3/uL [place] # (Auto) (0.1-1.2) X10*3/uL Eos # (Auto) (0.0-0.4) X10*3/uL Baso # (Auto) (0.0-0.2) X10*3/uL Abs Immat Gran (auto) (0.00-0.03) X10*3/uL Absolute Neuts (auto) (2.0-8.3) x10*3/uL Absolute Nucleated RBC (0.0-0.012) X10*3/uL Nucleated RBC % (auto) (0.0-0.2) /100WBC PT (10.0-13.1) SEC INR (0.9-1.1) D-Dimer High Sensitivty < 150 NG/ML Sodium (135-145) mmol/L Potassium (3.3-5.1) mmol/L Chloride (96-108) mmol/L Carbon Dioxide (22-29) mmol/L Anion Gap (12-20) BUN (9-16) mg/dL Creatinine (0.5-1.4) mg/dL Estim Creat Clear Calc Estimated GFR Random Glucose (60-115) mg/dL Calcium (8.4-10.2) mg/dL Total Bilirubin (0.0-1.0) mg/dL AST (5-37) U/L ALT (0-40) U/L Alkaline Phosphatase (39-117) U/L Troponin I High Sens 3.8 (<3.5-35.0) ng/L Total Protein (6.5-8.0) g/dL Albumin (3.5-5.0) g/dL COVID-19 (DANIEL) Negative (Negative) COVID-19 Clin Com See Note ECG Data Attestation: I personally reviewed and interpreted this ECG as follows: Interpretation: Normal sinus rhythm 97 beats per minute blood brought block inferior lead Q- waves no acute ST-T no acute ischemia Discharge Plan Discharge Clinical Impression: Syncope Patient Disposition: Admitted As Inpatient
--- NOTE | 2021-11-16 19:51 | ECG_ITS ---
Test Reason : SYNCOPE Blood Pressure : / mmHG Vent. Rate : 097 BPM Atrial Rate : 097 BPM P-R Int : 202 ms QRS Dur : 158 ms QT Int : 396 ms P-R-T Axes : 022 254 014 degrees QTc Int : 502 ms Normal sinus rhythm Right bundle branch block Possible Lateral infarct , age undetermined Inferior infarct , age undetermined Abnormal ECG No previous ECGs available Referred By: Gus Ash Electronically Signed By:Jerry Vanegas
[2021-11-16 20:44] LABS: MANUAL DIFF FLAG NO
[2021-11-16 20:49] LABS: Basophils Absolute Auto 0.1 X10*3/uL (0.0-0.2); Basophils Percent Auto 0.6 % (0-2); Eosinophils Absolute Auto 0.6 X10*3/uL (0.0-0.4); Eosinophils Percent Auto 4.4 % (0-4); Hemoglobin 15.4 g/dl (14.0-18.0); Imm Gran Abs Auto 0.06 X10*3/uL (0.00-0.03); Imm Gran Pct Auto 0.5 % (0.0-0.4); Lymphocytes Absolute Auto 2.4 X10*3/uL (1.2-4.9); Lymphocytes Percent Auto 18.8 % (20-40); Mean Corpuscular HGB Conc 33.5 g/dl (31.0-36.0); Mean Corpuscular Hemoglobin 29.5 pg (27.0-33.0); Mean Corpuscular Volume 88.1 fL (80.0-98.0); Mean Platelet Volume 10.4 fL (9.4-12.4); Monocytes Percent Auto 7.7 % (2-11); Neutrophils Absolute Auto 8.6 x10*3/uL (2.0-8.3); Platelet Count 231 X10*3/uL (160-400); Red Blood Count 5.22 X10*6/uL (4.60-5.80); Red Cell Distribution Width 13.2 % (11.0-16.0); White Blood Count 12.7 X10*3/uL (4.8-10.8)
[2021-11-16 20:59] LABS: Prothrombin Time 11.7 SEC (10.0-13.1)
[2021-11-16 21:07] LABS: IDNOW Serial# 55D5AD1C
[2021-11-16 21:08] LABS: COVID-19 Test Negative (Negative)
[2021-11-16 21:15] LABS: Alanine Aminotransferase 36 U/L (0-40); Albumin Level 4.3 g/dL (3.5-5.0); Alkaline Phosphatase 56 U/L (39-117); Anion Gap 14 (12-20); Aspartate Amino Transferase 20 U/L (5-37); Bilirubin Total 0.2 mg/dL (0.0-1.0); Blood Urea Nitrogen 21 mg/dL (9-16); Calcium 8.9 mg/dL (8.4-10.2); Carbon Dioxide 17 mmol/L (22-29); Chloride 110 mmol/L (96-108); Creatinine Clr Calc Pharmacy 67.4; Estimated Glomerular Filt Rate > 60; Glucose Random 172 mg/dL (60-115); Sodium 137 mmol/L (135-145); Total Protein 6.9 g/dL (6.5-8.0)
[2021-11-16 21:16] LABS: D Dimer High Sensitivity < 150 NG/ML
[2021-11-16 21:19] LABS: Troponin-I High Sensitivity 3.8 ng/L (<3.5-35.0)
[2021-11-16 22:00] VITALS: BP 138/86; PULSE 98; RESP 16; O2SAT 97
[2021-11-17] VITALS (9 sets, daily range): BP systolic 115–135; BP diastolic 69–86; PULSE 78–91; RESP 13–20; TEMP 36.3–36.6; O2SAT 94–98
--- NOTE | 2021-11-17 00:33 | PC.NURSE ---
pt a&ox3, vss, air sampling and monitoring applied - sinus rhythm, RBBB, resting comfortably. pt pending CT.
--- NOTE | 2021-11-17 02:26 | PM.IMHP ---
History of Present Illness Date of Service: 11/17/21 Chief Complaint: SOB 66-year-old male with a past medical history of hypertension, hyperlipidemia, diabetes, depression, history of tachycardia presented to the hospital today with a chief complaint of syncope. Patient reports that he was walking on showed only slumped, fell onto the floor, CT on the side of the chest wall; denies any head strike. Reports study lost consciousness briefly. Denies any seizure-like activity. Denies any chest pain palpitations lightheadedness or dizziness before or after the episode. Denies any confusion. Denies being dehydrated, denies taking any excessive home medications. Patient denies any GI symptoms. Review of all other systems is negative except mentioned above ER course: Per ER team patient's exam was nonfocal; CT head pending; EKG nonischemic; troponin negative; admitted to the hospital for further management. [facility] Medical History Depression Diabetes mellitus with hyperglycemia, without long-term current use of insulin Eczema of lower leg Epiploic appendagitis Essential hypertension Family history of prostate cancer Hx of skin cancer, basal cell Hypertriglyceridemia Lesion of left nipple Lesion of left nipple Mixed dyslipidemia Prostate cancer screening RBBB (right bundle branch block) Seasonal allergic rhinitis Sinus tachycardia by electrocardiogram Smoker unmotivated to quit Family History Father Stroke Aneurysm Cancer of prostate Mother Asbestos exposure Lung cancer Smoker Maternal Grandfather No problems noted. Maternal Grandmother No problems noted. Paternal Grandfather No problems noted. Paternal Grandmother No problems noted. Maternal Aunt Diabetes mellitus Sister No problems noted. Surgical History H/O arthroscopy of shoulder History of basal cell carcinoma excision History of colonoscopy History of inguinal hernia repair History of tonsillectomy Social History Housing: House Alcohol intake: current Alcohol intake frequency: a few times a week Alcohol type: wine Patient Tobacco Use Status: Former Tobacco user Cigarettes Per Day: 10 Smoked in Last 30 Days: No e-Cigarette/Vaping Use: Never Used Use of substances other than those prescribed or required for medical reasons: Yes Substance Use Type: Marijuana Substance Use Frequency: Occasionally Advance Directives: No Advance Directives Information Provided: Yes service: No Current occupational status: employed Cognitive needs: No Hearing needs: No Vision needs: Yes Meds Allergies Allergy/AdvReac Type Severity Reaction Status Date / Time barium sulfate Allergy Unknown rash Verified 11/16/21 19:26 [email or web address] Allergy Unknown rash Verified 11/16/21 19:26 Active Medications: Current Medications Acetaminophen (Acetaminophen 325 Mg Tablet) 650 mg PO Q6H PRN PRN Reason: Pain, Mild (Pain Scale 1-3) Dextrose (Dextrose 50 % 25 Gm/50 Ml Syringe) 25 gm IVPUSH Q15M PRN; Protocol PRN Reason: per Hypoglycemia Standing Ord. Glucose (Glucose Gel 15 Gm Gel..Gram.) 15 gm PO Q15M PRN; Protocol PRN Reason: per Hypoglycemia Standing Ord. Heparin Sodium (Porcine) (Heparin Sodium,Porcine 5,000 Unit/Ml Vial) 5,000 unit SUBCUT Q8H OLI Insulin Human Lispro (Insulin Lispro 100 Unit/Ml 3 Ml Vial) 0 unit SUBCUT QIDACHS OLI; Protocol Lisinopril (Lisinopril 20 Mg Tablet) 20 mg PO DAILY OLI; Protocol Melatonin (Melatonin 3 Mg Tablet) 6 mg PO BEDTIME PRN PRN Reason: Insomnia Non-Formulary Medication (Bupropion Hcl) 150 mg PO QAM OLI Non-Formulary Medication (Rosuvastatin) 5 mg PO 3XW OLI Senna (Sennosides 8.6 Mg Tablet) 17.2 mg PO BEDTIME PRN PRN Reason: Constipation Sodium Chloride (0.9 % Sodium Chloride Flush 3 Ml Syringe) 3 ml IVFLUSH QSHIFT [facility] Home Medications Medication Instructions Recorded Confirmed Last Taken Type flu vacc [id number] 6mos up(PF) 60 ml IM 04/02/20 11/08/21 Unknown History mcg(15 mcgx4)/0.5 mL IM syringe Physical Exam Vital Signs and Narrative: Vital Signs: Last Vital Signs Temp 98.2 F 11/16/21 19:29 Pulse 86 11/17/21 02:00 Resp 15 11/17/21 02:00 BP 120/77 11/17/21 02:00 Pulse Ox 98 11/17/21 02:00 O2 Del Method 11/17/21 02:00 BMI result Body Mass Index 25.8 Gen: Appears be in no acute distress HEENT: NCAT, Moist mucosa. Pulmonary: Vesicular breath sounds, fair air entry CVS: Normal S1-S2 Abdomen: BS+, Soft, Nontender Extremities: Warm well perfused Neuro: Alert and awake. Grossly nonfocal Results Labs CBC and Chem 7: 11/16/21 20:38 11/16/21 20:38 Labs: Laboratory Results - last 24 hr 11/16/21 11/16/21 11/16/21 20:38 20:38 20:38 MCV 88.1 MCH 29.5 MCHC 33.5 RDW 13.2 Plt Count 231 MPV 10.4 Immature Gran % (Auto) 0.5 H Neut % (Auto) 68.0 Lymph % (Auto) 18.8 L [place] % (Auto) 7.7 Eos % (Auto) 4.4 H Baso % (Auto) 0.6 Lymph # (Auto) 2.4 [place] # (Auto) 1.0 Eos # (Auto) 0.6 H Baso # (Auto) 0.1 Abs Immat Gran (auto) 0.06 H Absolute Neuts (auto) 8.6 H Absolute Nucleated RBC 0.000 Nucleated RBC % (auto) 0.0 PT 11.7 INR 1.0 D-Dimer High Sensitivty Anion Gap 14 Estim Creat Clear Calc 67.4 Estimated GFR > 60 Random Glucose 172 H Calcium 8.9 D Total Bilirubin 0.2 AST 20 D ALT 36 Alkaline Phosphatase 56 Troponin I High Sens Total Protein 6.9 Albumin 4.3 COVID-19 (DANIEL) COVID-19 Clin Com 11/16/21 11/16/21 11/16/21 20:38 20:38 20:38 MCV MCH MCHC RDW Plt Count MPV Immature Gran % (Auto) Neut % (Auto) Lymph % (Auto) [place] % (Auto) Eos % (Auto) Baso % (Auto) Lymph # (Auto) [place] # (Auto) Eos # (Auto) Baso # (Auto) Abs Immat Gran (auto) Absolute Neuts (auto) Absolute Nucleated RBC Nucleated RBC % (auto) PT INR D-Dimer High Sensitivty < 150 Anion Gap Estim Creat Clear Calc Estimated GFR Random Glucose Calcium Total Bilirubin AST ALT Alkaline Phosphatase Troponin I High Sens 3.8 Total Protein Albumin COVID-19 (DANIEL) Negative COVID-19 Clin Com See Note Imaging Radiologist's Impressions: Impressions Ribs X-Ray 11/16/21 22:18 IMPRESSION: No acute intrathoracic disease. Mild elevation of the right hemidiaphragm. Head CT 11/17/21 00:32 IMPRESSION: 1. No acute intracranial pathology. 2. Approximately 1 cm cystic focus in the right temporal lobe, most likely a chronic finding. This may be further assessed with nonemergent brain MRI. Chest CT 11/17/21 00:39 IMPRESSION: No evidence of a traumatic injury in the chest. No rib fractures are seen. Fleischner guidelines were followed. Assessment and Plan (1) Syncope: Status: Acute (2) Diabetes mellitus with hyperglycemia, without long-term current use of insulin: Qualifiers: Diabetes mellitus type: type 2 Qualified Code(s): E11.65 - Type 2 diabetes mellitus with hyperglycemia Status: Acute Plan 66-year-old male with a past medical history of hypertension, hyperlipidemia, diabetes, depression, history of tachycardia presented to the hospital today with a chief complaint of syncope. Syncope: Reportedly patient being followed up as outpatient for tachycardia. D-dimer is negative. Cardiology consult EKG nonischemic Telemetry Cycle cardiac enzymes Echocardiogram Orthostatic vitals History of hypertension/hyperlipidemia: Continue home lisinopril, statin History of diabetes: Hold home Jardiance, metformin. Insulin sliding scale for now. History of depression: Continue home bupropion DVT prophylaxis: Subcu heparin Code status: Full code Quality Stroke Does the patient have a stroke diagnosis?: No VTE Prior VTE?: No VTE Risk Level:: Medical - moderate - high VTE Device Contraindication: Treatment Not Indicated VTE Drug Contraindication: N/A - Med Ordered
[2021-11-17 02:43] LABS: Appearance Urine CLEAR; Color Urine YELLOW; Glucose Urine UA >=1000 MG/DL (NEG); Leukocyte Esterase Urine NEG (NEG); Nitrite Urine NEG (NEG); Urine Blood NEG (NEG); Urine Ketones NEG (NEG); Urine Protein NEG (NEG-TRACE)
[2021-11-17 02:54] LABS: Bacteria Urine TRACE /LPF; Mucus Urine 1+ /LPF; RBC Urine 0-2 /HPF (0); Squamous Epithelial Cell Urine TRACE /LPF; WBC Urine 0 /HPF (0-4)
--- NOTE | 2021-11-17 02:57 | PC.NURSE ---
med rec complete
[2021-11-17] MEDS: Atorvastatin Calcium 20 MG TABLET PO (03:18)
[2021-11-17] MEDS: Heparin Sodium,Porcine 5,000 UNIT/ML VIAL 5000 UNIT SUBCUT ×3 (03:18→18:23)
--- NOTE | 2021-11-17 03:19 | PC.NURSE ---
medicated per provider order.
[2021-11-17 05:13] LABS: MANUAL DIFF FLAG NO
[2021-11-17 05:14] LABS: Basophils Absolute Auto 0.1 X10*3/uL (0.0-0.2); Basophils Percent Auto 0.8 % (0-2); Eosinophils Absolute Auto 0.6 X10*3/uL (0.0-0.4); Eosinophils Percent Auto 4.8 % (0-4); Hemoglobin 15.1 g/dl (14.0-18.0); Imm Gran Abs Auto 0.04 X10*3/uL (0.00-0.03); Imm Gran Pct Auto 0.3 % (0.0-0.4); Lymphocytes Absolute Auto 2.8 X10*3/uL (1.2-4.9); Lymphocytes Percent Auto 23.8 % (20-40); Mean Corpuscular HGB Conc 32.8 g/dl (31.0-36.0); Mean Corpuscular Hemoglobin 29.1 pg (27.0-33.0); Mean Corpuscular Volume 88.6 fL (80.0-98.0); Mean Platelet Volume 10.9 fL (9.4-12.4); Monocytes Percent Auto 8.4 % (2-11); Neutrophils Absolute Auto 7.4 x10*3/uL (2.0-8.3); Neutrophils Percent Auto 61.9 % (45-73); Platelet Count 246 X10*3/uL (160-400); Red Blood Count 5.19 X10*6/uL (4.60-5.80); Red Cell Distribution Width 13.3 % (11.0-16.0); White Blood Count 11.9 X10*3/uL (4.8-10.8)
[2021-11-17 05:33] LABS: Anion Gap 12 (12-20); Blood Urea Nitrogen 19 mg/dL (9-16); Calcium 9.1 mg/dL (8.4-10.2); Carbon Dioxide 18 mmol/L (22-29); Chloride 112 mmol/L (96-108); Creatinine Clr Calc Pharmacy 77.1; Estimated Glomerular Filt Rate > 60; Glucose Random 130 mg/dL (60-115); Potassium 4.4 mmol/L (3.3-5.1); Sodium 138 mmol/L (135-145)
--- NOTE | 2021-11-17 07:00 | CA_ITS ---
Transthoracic Echocardiogram Patient (Last, First, Middle): Fan Lorenzo A Gender: Male Date of : 1955 Age: 66 Procedure Date: 11/17/2021 Procedure Type: Transthoracic Echocardiogram Location: ER Height: 165.1 cm Weight: 72.12 kg BSA: 1.79 m2 Heart Rate: 88 bpm BP: 129 / 74 mmHg Cook Dinner: NEHEMIAS Referring MD: Bjorn Patrick MD Symptoms: syncope Study Quality: Adequate ECG Rhythm: Sinus Conclusions: - Normal left ventricular cavity size. There is normal left ventricular wall thickness. The left ventricular systolic function is low normal. The visually estimated ejection fraction is between 50-55%. - E/E prime ratio is between 8 and 15 consistent with indeterminate filling pressures. - The basal inferior segment is akinetic. - Normal right ventricular cavity size and systolic function. Findings Left Ventricle Normal left ventricular cavity size. There is normal left ventricular wall thickness. The left ventricular systolic function is low normal. The visually estimated ejection fraction is between 50-55%. There is evidence of regional wall motion abnormalities. Abnormal diastolic function is noted. Spectral Doppler is indicative of an impaired relaxation filling pattern. E/E prime ratio is between 8 and 15 consistent with indeterminate filling pressures. Wall Motion Rest Echo Findings The basal inferior segment is akinetic. Right Ventricle Normal right ventricular cavity size and systolic function. Atria Both atria are normal in size. Aortic Valve Normal aortic valve structure and function. There is no aortic valve stenosis. There is no aortic valve regurgitation. Mitral Valve There is mild mitral annular calcification. There is no mitral valve regurgitation. There is no mitral valve stenosis. Pulmonic Valve Normal pulmonic valve structure and function. There is trace pulmonic valve regurgitation. Tricuspid Valve Normal tricuspid valve structure and function. There is trace tricuspid valve regurgitation. Tricuspid regurgitation envelope is inadequate for calculation of right ventricular systolic pressure. Normal right atrial pressure. There is no evidence of pulmonary hypertension. Great Vessels All visible segments of the aorta are normal in size. The visualized portions of the pulmonary artery and branches are normal. Venous The inferior vena cava is normal in size and collapses greater than 50% with inspiration. Pericardium/Pleural There is no evidence of pericardial effusion. Prior Study Comparison No prior study available for comparison. Measurements 2D Linear Measurements IVSd: 0.98 0.6-0.9/0.6-1.0 cm LVIDd: 4.65 3.9-5.3/4.2-5.9 cm LVIDd Index: 2.60 2.4-3.2/2.2-3.1 cm/m2 LVIDs: 3.40 2.0-3.6 cm LVPWd: 0.99 0.7-1.1 cm LA Diam: 3.40 2.7-3.8/3.0-4.0 cm LAIDs Index: 1.90 1.5-2.3 cm/m2 LV Mass: 197.29 67-162/88-224 g LV Mass Index: 110.22 43-95/49-115 g/m2 LVOT Diam: 1.90 3.0+(-)1.3 cm 2D Systolic Function EF 4C: 44.80 >55% EF 2C: 52.40 >55% EF BiP: 48.70 >55% Mitral Valve MV Pk E: 0.65 MV PK A: 0.81 MV Decel Time: 193.00 E/A: 0.80 E'Lateral: 7.29 E'Medial: 5.55 E/E' Med: 11.70 E/E' Lat: 8.90 PHT: 57.00 MVA PHT: 3.86 Decel Linn: 3.38 Aortic Valve AoV Pk Cal: 1.35 AoV Mn Cal: 0.95 AoV VTI: 0.23 AoV Pk Grad: 7.00 Aov Mn Grad: 4.00 LANI Cont.VTI: 1.46 LVOT LVOT Pk Cal: 0.78 LVOT Mn Cal: 0.50 LVOT VTI: 0.12 LVOT Pk Grad: 2.00 LVOT Mn Grad: 1.00 LVOT Diam: 1.90 LVOT Area: 2.84 Diastolic Function MV Pk E: 0.65 MV Pk A: 0.81 E/A: 0.80 E'Medial: 5.55 E/E' Med: 11.70 E' Laterial: 7.29 E/E' Lat: 8.90 Right Ventricle TAPSE (mm): 19.10 TVS' Cal: 12.10 Tricuspid Valve RA Press: 3.00 Great Vessels Aorta Sinus of Valsalva: 2.90 2.0-3.5 cm Ao Asc: 2.50 2.1-3.4 cm Pulmonary Valve PV Pk Cal: 1.42 Peak PV Grad: 8.00 Updated in Other Vendor System with Status of Final Jerry Vanegas MD electronically signed on 11/18/2021 2:18:21 PM with status of Final
--- NOTE | 2021-11-17 07:18 | PHA.MEDREC ---
Pharmacy Consult ? Medication Reconciliation Pharmacy has completed the medication reconciliation. Completed by nursing, verified by pharmacy
[2021-11-17 07:26] LABS: Glucose, Whole Blood 127 mg/dL (60-115)
[2021-11-17] MEDS: 0.9 % Sodium Chloride Flush 3 ML SYRINGE IVFLUSH ×3 (07:40→20:25)
[2021-11-17] MEDS: lisinopriL 20 MG TABLET PO (08:15)
[2021-11-17] MEDS: buPROPion HCl XL 150 MG TAB.ER.24H PO (08:15)
--- NOTE | 2021-11-17 10:07 | P.CONCA_ITS ---
History of Present Illness History of Present Illness Date of Service: 11/17/21 Requesting physician: Ravi Knight Chief complaint: Syncope Narrative: [age] year gentleman with background history of hypertension, hyperlipidemia and diabetes. He was seen in his primary care physician's office where he was noticed to be tachycardic and was referred to outpatient cardiology office. He has not been seen by our office yet but apparently developed dizziness and syncope yesterday. He said he picked up something from the floor after squatting for a few seconds and then try to walk and felt dizzy and next moment found himself on the floor. He is denying any previous symptoms similar to this. No chest discomfort shortness of breath. He is saying he has been drinking more water because of heat. No other complaints currently. He has EKG in the office previously was abnormal showing a right bundle-branch block with concern for inferior and anterolateral infarct. [facility] Past Medical History Medical History Depression Diabetes mellitus with hyperglycemia, without long-term current use of insulin Eczema of lower leg Epiploic appendagitis Essential hypertension Family history of prostate cancer Hx of skin cancer, basal cell Hypertriglyceridemia Lesion of left nipple Lesion of left nipple Mixed dyslipidemia Prostate cancer screening RBBB (right bundle branch block) Seasonal allergic rhinitis Sinus tachycardia by electrocardiogram Smoker unmotivated to quit Family History Family History Father Stroke Aneurysm Cancer of prostate Mother Asbestos exposure Lung cancer Smoker Maternal Grandfather No problems noted. Maternal Grandmother No problems noted. Paternal Grandfather No problems noted. Paternal Grandmother No problems noted. Maternal Aunt Diabetes mellitus Sister No problems noted. Surgical History Surgical History H/O arthroscopy of shoulder History of basal cell carcinoma excision History of colonoscopy History of inguinal hernia repair History of tonsillectomy Social History Social History Housing: House Alcohol intake: current Alcohol intake frequency: a few times a week Alcohol type: wine Patient Tobacco Use Status: Former Tobacco user Cigarettes Per Day: 10 Smoked in Last 30 Days: No e-Cigarette/Vaping Use: Never Used Use of substances other than those prescribed or required for medical reasons: Yes Substance Use Type: Marijuana Substance Use Frequency: Occasionally Advance Directives: No Advance Directives Information Provided: Yes service: No Current occupational status: employed Cognitive needs: No Hearing needs: No Vision needs: Yes Meds Allergies Allergy/AdvReac Type Severity Reaction Status Date / Time barium sulfate Allergy Unknown rash Verified 11/16/21 19:26 [email or web address] Allergy Unknown rash Verified 11/16/21 19:26 Active Medications: Current Medications Acetaminophen (Acetaminophen 325 Mg Tablet) 650 mg PO Q6H PRN PRN Reason: Pain, Mild (Pain Scale 1-3) Atorvastatin Calcium (Atorvastatin Calcium 20 Mg Tablet) 20 mg PO MoWeFr [facility] Last Admin: 11/17/21 03:18 Dose: 20 mg Bupropion HCl (Bupropion Hcl Xl 150 Mg Tab.Er.24h) 150 mg PO DAILY [facility] Last Admin: 11/17/21 08:15 Dose: 150 mg Dextrose (Dextrose 50 % 25 Gm/50 Ml Syringe) 25 gm IVPUSH Q15M PRN; Protocol PRN Reason: per Hypoglycemia Standing Ord. Glucose (Glucose Gel 15 Gm Gel..Gram.) 15 gm PO Q15M PRN; Protocol PRN Reason: per Hypoglycemia Standing Ord. Heparin Sodium (Porcine) (Heparin Sodium,Porcine 5,000 Unit/Ml Vial) 5,000 unit SUBCUT Q8H [facility] Last Admin: 11/17/21 03:18 Dose: 5,000 unit Insulin Human Lispro (Insulin Lispro 100 Unit/Ml 3 Ml Vial) 0.1 - 10 unit SUBCUT QIDACHS [facility]; Protocol Last Admin: 11/17/21 07:40 Dose: Not Given Lisinopril (Lisinopril 20 Mg Tablet) 20 mg PO DAILY [facility]; Protocol Last Admin: 11/17/21 08:15 Dose: 20 mg Melatonin (Melatonin 3 Mg Tablet) 6 mg PO BEDTIME PRN PRN Reason: Insomnia Senna (Sennosides 8.6 Mg Tablet) 17.2 mg PO BEDTIME PRN PRN Reason: Constipation Sodium Chloride (0.9 % Sodium Chloride Flush 3 Ml Syringe) 3 ml IVFLUSH QSHIFT [facility] Last Admin: 11/17/21 07:40 Dose: 3 ml Physical Exam Vital Signs: Vital Signs: Last Vital Signs Temp 97.9 F 11/17/21 07:16 Pulse 80 11/17/21 07:16 Resp 13 11/17/21 07:16 BP 129/74 11/17/21 07:16 Pulse Ox 96 11/17/21 07:16 O2 Del Method 11/17/21 07:16 BMI result Body Mass Index 25.8 GENERAL APPEARANCE: in no acute distress, pleasant. NECK: no carotid bruit, no jugular venous distention. SKIN: no suspicious lesions, warm and dry. HEART: no murmurs, regular rate and rhythm. LUNGS: clear to auscultation bilaterally. ABDOMEN: soft, nontender. EXTREMITIES: no edema. PERIPHERAL PULSES: equal. NEUROLOGIC: No gross deficits, AAO X 3 Objective Labs and Meds Result diagrams: 11/17/21 04:15 11/17/21 04:15 Lab results: Laboratory Results - last 24 hr 11/16/21 11/16/21 11/16/21 20:38 20:38 20:38 WBC 12.7 H RBC 5.22 Hgb 15.4 Hct 46.0 MCV 88.1 MCH 29.5 MCHC 33.5 RDW 13.2 Plt Count 231 MPV 10.4 Immature Gran % (Auto) 0.5 H Neut % (Auto) 68.0 Lymph % (Auto) 18.8 L [place] % (Auto) 7.7 Eos % (Auto) 4.4 H Baso % (Auto) 0.6 Lymph # (Auto) 2.4 Hand # (Auto) 1.0 Eos # (Auto) 0.6 H Baso # (Auto) 0.1 Abs Immat Gran (auto) 0.06 H Absolute Neuts (auto) 8.6 H Absolute Nucleated RBC 0.000 Nucleated RBC % (auto) 0.0 PT 11.7 INR 1.0 D-Dimer High Sensitivty Sodium 137 Potassium 4.0 Chloride 110 H Carbon Dioxide 17 L Anion Gap 14 BUN 21 H Creatinine 0.95 Estim Creat Clear Calc 67.4 Estimated GFR > 60 POC Glucose Random Glucose 172 H Calcium 8.9 D Total Bilirubin 0.2 AST 20 D ALT 36 Alkaline Phosphatase 56 Troponin I High Sens Total Protein 6.9 Albumin 4.3 Urine Color Urine Appearance Urine pH Ur Specific [place] Urine Protein Urine Glucose (UA) Urine Ketones Urine Blood Urine Nitrite Ur Leukocyte Esterase Urine RBC Urine WBC Ur Squamous Epith Cells Urine Bacteria Urine Mucus COVID-19 (DANIEL) COVID-19 Clin Com 11/16/21 11/16/21 11/16/21 20:38 20:38 20:38 WBC RBC Hgb Hct MCV MCH MCHC RDW Plt Count MPV Immature Gran % (Auto) Neut % (Auto) Lymph % (Auto) Hand % (Auto) Eos % (Auto) Baso % (Auto) Lymph # (Auto) Hand # (Auto) Eos # (Auto) Baso # (Auto) Abs Immat Gran (auto) Absolute Neuts (auto) Absolute Nucleated RBC Nucleated RBC % (auto) PT INR D-Dimer High Sensitivty < 150 Sodium Potassium Chloride Carbon Dioxide Anion Gap BUN Creatinine Estim Creat Clear Calc Estimated GFR POC Glucose Random Glucose Calcium Total Bilirubin AST ALT Alkaline Phosphatase Troponin I High Sens 3.8 Total Protein Albumin Urine Color Urine Appearance Urine pH Ur Specific [place] Urine Protein Urine Glucose (UA) Urine Ketones Urine Blood Urine Nitrite Ur Leukocyte Esterase Urine RBC Urine WBC Ur Squamous Epith Cells Urine Bacteria Urine Mucus COVID-19 (DANIEL) Negative COVID-19 Clin Com See Note 11/17/21 11/17/21 11/17/21 02:37 04:15 04:15 WBC 11.9 H RBC 5.19 Hgb 15.1 Hct 46.0 MCV 88.6 MCH 29.1 MCHC 32.8 RDW 13.3 Plt Count 246 MPV 10.9 Immature Gran % (Auto) 0.3 Neut % (Auto) 61.9 Lymph % (Auto) 23.8 Hand % (Auto) 8.4 Eos % (Auto) 4.8 H Baso % (Auto) 0.8 Lymph # (Auto) 2.8 Hand # (Auto) 1.0 Eos # (Auto) 0.6 H Baso # (Auto) 0.1 Abs Immat Gran (auto) 0.04 H Absolute Neuts (auto) 7.4 Absolute Nucleated RBC 0.000 Nucleated RBC % (auto) 0.0 PT INR D-Dimer High Sensitivty Sodium 138 Potassium 4.4 Chloride 112 H Carbon Dioxide 18 L Anion Gap 12 BUN 19 H Creatinine 0.83 Estim Creat Clear Calc 77.1 Estimated GFR > 60 POC Glucose Random Glucose 130 H Calcium 9.1 Total Bilirubin AST ALT Alkaline Phosphatase Troponin I High Sens Total Protein Albumin Urine Color YELLOW Urine Appearance CLEAR Urine pH 6.0 Ur Specific [place] 1.020 Urine Protein NEG Urine Glucose (UA) >=1000 H Urine Ketones NEG Urine Blood NEG Urine Nitrite NEG Ur Leukocyte Esterase NEG Urine RBC 0-2 Urine WBC 0 Ur Squamous Epith Cells TRACE Urine Bacteria TRACE Urine Mucus 1+ COVID-19 (DANIEL) COVID-19 Clin Com 11/17/21 07:15 WBC RBC Hgb Hct MCV MCH MCHC RDW Plt Count MPV Immature Gran % (Auto) Neut % (Auto) Lymph % (Auto) Hand % (Auto) Eos % (Auto) Baso % (Auto) Lymph # (Auto) Hand # (Auto) Eos # (Auto) Baso # (Auto) Abs Immat Gran (auto) Absolute Neuts (auto) Absolute Nucleated RBC Nucleated RBC % (auto) PT INR D-Dimer High Sensitivty Sodium Potassium Chloride Carbon Dioxide Anion Gap BUN Creatinine Estim Creat Clear Calc Estimated GFR POC Glucose 127 H Random Glucose Calcium Total Bilirubin AST ALT Alkaline Phosphatase Troponin I High Sens Total Protein Albumin Urine Color Urine Appearance Urine pH Ur Specific [place] Urine Protein Urine Glucose (UA) Urine Ketones Urine Blood Urine Nitrite Ur Leukocyte Esterase Urine RBC Urine WBC Ur Squamous Epith Cells Urine Bacteria Urine Mucus COVID-19 (DANIEL) COVID-19 Clin Com Imaging Radiologist's impression: Impressions Ribs X-Ray 11/16/21 22:18 IMPRESSION: No acute intrathoracic disease. Mild elevation of the right hemidiaphragm. Head CT 11/17/21 00:32 IMPRESSION: 1. No acute intracranial pathology. 2. Approximately 1 cm cystic focus in the right temporal lobe, most likely a chronic finding. This may be further assessed with nonemergent brain MRI. Chest CT 11/17/21 00:39 IMPRESSION: No evidence of a traumatic injury in the chest. No rib fractures are seen. Fleischner guidelines were followed. Assessment and Plan (1) Syncope: Status: Acute (2) Abnormal EKG: Status: Acute Plan 66-year-old gentleman who is presenting with syncope. Clinical story is more concerning for orthostasis. Interestingly his orthostatic vital signs are normal. Clinically he is euvolemic. Agree with gentle hydration. He has conduction system disease with right bundle-branch block and first-degree AV block on the EKG. He also has concern for anterolateral infarct and potentially inferior infarct. He needs echocardiography to assess for wall motion abno rmality and cardiomyopathy. His D-dimer is less than 150. He needs to be monitored on telemetry for arrhythmia. If no obvious arrhythmia is noticed then we will arrange a cardiac event monitor for him as he leaves. We will follow along with you. Thank you for allowing me to participate in the care of your patient. Please feel free to contact me if you have any questions. Procedures Date of Service Date of Service: 11/17/21
[2021-11-17 13:46] LABS: Glucose, Whole Blood 101 mg/dL (60-115)
--- NOTE | 2021-11-17 15:52 | PC.NURSE ---
pt requested and given cup of ice water.
[2021-11-17 20:09] LABS: Glucose, Whole Blood 126 mg/dL (60-115)
[2021-11-17 20:47] LABS: Glucose, Whole Blood 170 mg/dL (60-115)
[2021-11-18] VITALS: BP 109/64; PULSE 73; RESP 17; TEMP 36; O2SAT 97
[2021-11-18 04:00] VITALS: BP 118/76; PULSE 71; RESP 17; TEMP 36.4; O2SAT 98
[2021-11-18] MEDS: Heparin Sodium,Porcine 5,000 UNIT/ML VIAL 5000 UNIT SUBCUT ×2 (04:20→09:02)
[2021-11-18 07:45] VITALS: BP 113/69; PULSE 74; RESP 14; TEMP 36.6; O2SAT 100
[2021-11-18 07:59] LABS: Glucose, Whole Blood 137 mg/dL (60-115)
[2021-11-18] MEDS: buPROPion HCl XL 150 MG TAB.ER.24H PO (09:02)
[2021-11-18] MEDS: lisinopriL 20 MG TABLET PO (09:02)
[2021-11-18] MEDS: 0.9 % Sodium Chloride Flush 3 ML SYRINGE IVFLUSH (09:03)
--- NOTE | 2021-11-18 09:27 | MHC.CM.PN ---
11/18 DURON, copy given to patient and copy filed in chart. Pt reports he lives with his Leah his S.O., she will transport him home and will be his HCP (form to be completed). He is independent at home/community is employed. PCP: Bettina Gaffney;d x3 ([facility]). D/C Plan: Home (Self-care)
--- NOTE | 2021-11-18 09:45 | MHC.CM.PN ---
HCP form completed by patient, copies given to him, copy filed in chart, and uploaded to [employer].
--- NOTE | 2021-11-18 10:05 | P.DS_ITS ---
DS: Providers Provider Date of Service: 11/18/21 Date of admission: 11/17/21 02:23 Primary care physician: Dianna Huitron MD Consults: 11/17/21 02:22 Consult to Cardiology Routine Consulting Provider: Jerry Vanegas Reason for consultation: syncope DS: Diagnosis Discharge Diagnosis (1) Syncope: Status: Acute (2) Abnormal EKG: Status: Acute DS: Summary Hospital Course Hospital Course: 66-year-old male with a past medical history of hypertension, hyperlipidemia, diabetes, depression, history of tachycardia presented to the hospital today with a chief complaint of syncope.? Patient reports that he was walking on showed only slumped, fell onto the floor, CT on the side of the chest wall; denies any head strike.? Reports study lost consciousness briefly.? Denies any seizure-like activity.? Denies any chest pain palpitations lightheadedness or dizziness before or after the episode.? Denies any confusion.? Denies being dehydrated, denies taking any excessive home medications.? Patient denies any GI symptoms.? Review of all other systems is negative except mentioned above ER course: Per ER team patient's exam was nonfocal; CT head pending; EKG nonischemic; troponin negative; admitted to the hospital for further management. Hospital course: he was observed overnight on cardiac telemetry and did not show any signs of arrhythmia and has not had any further episode of syncope. He was evaluated by Dr. Currie from Cardiology and recommend further testing with outpatient cardiac monitoring. [facility] Time Spent with Patient Time attestation: Total time spent providing and/or coordinating discharge services: Discharge coordination time: Greater than 30 minutes Quality: Safe Use of Opioids Does Pt have an Active Cancer Diagnosis on the Problem List?: No Quality: Stroke Does the patient have a stroke diagnosis?: No Physical Exam Vital Signs: Vital Signs: Last Vital Signs Temp 97.8 F 11/18/21 07:45 Pulse 74 11/18/21 07:45 Resp 14 11/18/21 07:45 BP 113/69 11/18/21 07:45 Pulse Ox 100 11/18/21 07:45 O2 Del Method 11/18/21 07:45 BMI result Body Mass Index 25.8 DS: Data Data Completed and Pending Labs on day of discharge: Laboratory Results - last 24 hr 11/17/21 11/17/21 11/17/21 13:42 18:13 20:40 POC Glucose 101 126 H 170 H 11/18/21 07:42 POC Glucose 137 H Discharge Plan Discharge Anticipated Discharge Date/Time: 11/18/21 10:02 Patient Disposition: Home, Self-Care Discharge Diagnosis: Syncope Referrals: Dianna Huitron MD [Primary Care Provider] - 1 Week Discharge Medications: Continued Jardiance 25 mg tablet 25 mg PO QAM Qty: 30 5RF metformin 1,000 mg tablet 1,000 mg PO BID 90 Days Qty: 180 1RF lisinopril 20 mg tablet 20 mg PO DAILY Qty: 90 0RF bupropion HCl 150 mg tablet sustained-release 12 hr 150 mg PO QAM Qty: 90 3RF rosuvastatin 5 mg tablet 5 mg PO 3XW 90 Days Qty: 39 2RF Diet: Diabetic diet Activity on Discharge: As tolerated Stand Alone Forms: Patient Portal Discharge page Care Plan Goals: no syncope and full work up of syncope Health Concerns: syncope Plan of Treatment: follow up with Dr. Vanegas Assessment: as above
[2021-11-18 11:40] LABS: Glucose, Whole Blood 124 mg/dL (60-115)
[2021-11-18 11:46] VITALS: BP 128/78; PULSE 81; RESP 18; TEMP 36.8; O2SAT 98
--- NOTE | 2021-11-18 15:35 | PM.PNCARD ---
Subjective Subjective Date of Service: 11/18/21 Interval history: Seen and examined at bedside. Echo result discussed. Physical Exam Vital Signs: Last Vital Signs Temp 98.3 F 11/18/21 11:46 Pulse 81 11/18/21 11:46 Resp 18 11/18/21 11:46 BP 128/78 11/18/21 11:46 Pulse Ox 98 11/18/21 11:46 O2 Del Method 11/18/21 11:46 BMI result Body Mass Index 25.8 GENERAL APPEARANCE: in no acute distress, pleasant. NECK: no carotid bruit, no jugular venous distention. SKIN: no suspicious lesions, warm and dry. HEART: no murmurs, regular rate and rhythm. LUNGS: clear to auscultation bilaterally. ABDOMEN: soft, nontender. EXTREMITIES: no edema. PERIPHERAL PULSES: equal. NEUROLOGIC: No gross deficits, AAO X 3 Objective Labs and Meds Result diagrams: 11/17/21 04:15 11/17/21 04:15 Lab results: Laboratory Results - last 24 hr 11/17/21 11/17/21 11/18/21 18:13 20:40 07:42 POC Glucose 126 H 170 H 137 H 11/18/21 11:22 POC Glucose 124 H Progress Note: A&P Assessment and plan (1) Syncope: Status: Acute (2) Abnormal EKG: Status: Acute (3) Wall motion abnormality of inferior wall of left ventricle: Status: Acute Plan 66-year-old gentleman here for episode of syncope. Clinical history is consistent with orthostasis. He has hydrated and is feeling better. He was monitor on telemetry. He also had echocardiography performed which is showing basal inferior wall akinesis. Left ventricular ejection fraction is 50-55%. No significant valvular disease on noticed. I have explained to him that the likely reason for his presentation orthostasis. Given wall motion abnormality and abnormal EKG we would consider stress Mibi on him as outpatient. I will also arrange a 5 day Holter monitor for him to rule out any significant arrhythmia as cause for his presentation. Thank you for allowing me to participate in the care of your patient. Please feel free to contact me if you have any questions. Time Spent With Patient Time: Total time spent is greater than 50% in coordination of care (as documented) at patient's floor/unit and/or counseling patient: Progress Note: Quality Stroke Does the patient have a stroke diagnosis?: No Procedures Date of Service Date of Service: 11/18/21
--- NOTE | 2021-11-18 15:57 | MHC.CM.PN ---
Patient has been medically cleared for discharge today. Patient will discharge Home (self-care).
== END 2021-11-18 16:51 | disposition home or self-care (01) ==
LOC: HO.ED 11-17 00:43 → HO.EDOVER 11-17 02:29 → HO.S3 11-17 16:01
PROVIDERS: Admitting Provider Hospitalist; Emergency Provider Internal Medicine; PCP Internal Medicine; Visit Provider Internal Medicine
DX: R55 Syncope and collapse (principal); S29.9XXA Unspecified injury of thorax, initial encounter; S06.9X9A Unspecified intracranial injury with loss of consciousness of unspecified duration, initial encounter; R94.31 Abnormal electrocardiogram [ECG] [EKG]; R94.30 Abnormal result of cardiovascular function study, unspecified; R51.9 Headache, unspecified; E11.65 Type 2 diabetes mellitus with hyperglycemia; R06.02 Shortness of breath; R07.81 Pleurodynia; E78.5 Hyperlipidemia, unspecified; F33.1 Major depressive disorder, recurrent, moderate; F17.210 Nicotine dependence, cigarettes, uncomplicated; F12.90 Cannabis use, unspecified, uncomplicated; Z20.822 Contact with and (suspected) exposure to COVID-19; W18.30XA Fall on same level, unspecified, initial encounter; Y93.9 Activity, unspecified; Y92.9 Unspecified place or not applicable; Y99.9 Unspecified external cause status; Z79.4 Long term (current) use of insulin; Z79.899 Other long term (current) drug therapy; Z71.6 Tobacco abuse counseling
CPT/HCPCS: 36415; 70450; 71101; 71250; 80048; 80053; 81001; 82947; 84484; 85025; 85379; 85610; 87635; 93005; 93306; 96374; 99218; 99285

== ENCOUNTER → 2021-11-28 13:43 | Outpatient (BNVA) | payer BC, SELFPAY | PROVIDERS: PCP Internal Medicine; Visit Provider Internal Medicine | DX: R00.0 Tachycardia, unspecified (principal); I45.10 Unspecified right bundle-branch block; R94.30 Abnormal result of cardiovascular function study, unspecified; I10 Essential (primary) hypertension; E11.65 Type 2 diabetes mellitus with hyperglycemia; E78.2 Mixed hyperlipidemia; F17.200 Nicotine dependence, unspecified, uncomplicated | CPT/HCPCS: 93005 ==

== ENCOUNTER → 2021-12-07 07:48 | Outpatient (REF) | payer BC, SELFPAY ==
--- NOTE | ~2021-12-07 | NM_ITS ---
EXERCISE MYOCARDIAL PERFUSION STUDY INDICATION: Syncope, right bundle branch block TECHNIQUE: The patient was brought in for an exercise perfusion study on 12/07/2021. Patient performed exercise as per Duong protocol and was injected 25 mCi of sestamibi once target heart rate was achieved. Images were obtained using the SPECT gamma camera interlaced with the gating device. Images were obtained in supine position. Resting perfusion study was performed on 12/08/2021. Patient was administered 25 mCi of sestamibi intravenously at rest. Images were then obtained in supine position. Total DLP 96mGy-cm. Images were processed with the software and compared side to side in short axis, horizontal long axis and vertical long axis views. FINDINGS: Raw images were reviewed. The stress perfusion study showed no significant perfusion abnormality. Both uncorrected as well as CT attenuation corrected images were reviewed. The gated study shows normal LV systolic function with calculated LVEF of 60%. LV cavity is normal in size. The gated study shows normal wall thickening and contraction of segments. Resting study shows no significant perfusion abnormality. Gating at rest reveals normal wall motion with ejection fraction at 70%. The findings are consistent with no reversible or fixed perfusion abnormality. NM/NM cardiolite stress test IMPRESSION: 1. Myocardial perfusion imaging study shows normal myocardial perfusion. 2. Gated LVEF is 60% during stress and 70% during rest. 3. Transient ischemic dilatation not present. EKG component of the test reported separately.
--- NOTE | 2021-12-07 07:51 | HM_ITS ---
* Total monitoring time 18 hours 23 minutes. * Underlying rhythm is sinus. * Average rate 86/Min. Range 71-114/Min. * No atrial fibrillation or flutter or AV blocks or pauses. * Rare supraventricular and ventricular ectopy with minimal burden. * No patient events. MTDD
--- NOTE | 2021-12-07 07:55 | CA_ITS ---
Acquisition Time: 2021-12-07 08:06:36 Total Exercise Time: 00:05:00 Test Indications: Abnormal ECG Medications: JARDIANCE METFORMIN LISINOPRIL BUPROPION JARDIANCE ROSUVASTATIN Protocol: RAHEEM Max HR: 144 BPM 92% of Pred: 155 BPM Max BP: 155/088 mmHG Max Work Load: 7.0 METS Exercise stress test with exercise 5 min of Raheem protocol, achieving 91% MPHR, with mild sob, no chest discomfort, with isolated PVC, with normotensive response to exercise, without EKG changes meeting criteria for ischemia. Nuclear images pending. Test reviewed with Dr Cortez. Referred By: Jerry Vanegas Overread By: SONG VAZ
== END ==
LOC: HO.CARD 07:48
PROVIDERS: PCP Internal Medicine; Visit Provider Internal Medicine Cardiovascular Disease
DX: R94.30 Abnormal result of cardiovascular function study, unspecified (principal)
CPT/HCPCS: 78452; 93017; 93242; A9500

== ENCOUNTER 2021-12-21 14:18 | Outpatient (REF) | payer BC, SELFPAY | END 2021-12-21 14:19 | disposition home or self-care (01) | LOC: HO.LAB 14:18 | PROVIDERS: Internal Medicine Cardiovascular Disease; PCP Internal Medicine; Visit Provider Internal Medicine | DX: R00.0 Tachycardia, unspecified (principal) | CPT/HCPCS: 36415; 84443 ==

== ENCOUNTER 2022-02-21 06:46 | Outpatient (REF) | payer BC, SELFPAY ==
[2022-02-21 11:43] LABS: Alanine Aminotransferase 28 U/L (0-40); Anion Gap 16 (12-20); Aspartate Amino Transferase 17 U/L (5-37); Blood Urea Nitrogen 28 mg/dL (9-16); Calcium 9.7 mg/dL (8.4-10.2); Carbon Dioxide 22 mmol/L (22-29); Chloride 106 mmol/L (96-108); Cholesterol 174 mg/dL; Estimated Glomerular Filt Rate > 60; Glucose Fasting 151 mg/dL (60-99); HDL Cholesterol 45 mg/dL; LDL Cholesterol Calculated 98 mg/dl; Potassium 4.7 mmol/L (3.3-5.1); Sodium 139 mmol/L (135-145); Triglycerides 155 mg/dL
== END 2022-02-21 06:47 | disposition home or self-care (01) ==
LOC: HO.HMGCLDS 06:46
PROVIDERS: PCP Internal Medicine; Visit Provider Internal Medicine
DX: E11.65 Type 2 diabetes mellitus with hyperglycemia (principal); I10 Essential (primary) hypertension; E78.2 Mixed hyperlipidemia
CPT/HCPCS: 36415; 80048; 80061; 84450; 84460

== ENCOUNTER → 2022-04-03 08:42 | Outpatient (BNVA) | payer BC, SELFPAY | PROVIDERS: PCP Internal Medicine; Visit Provider Internal Medicine Cardiovascular Disease | DX: R00.0 Tachycardia, unspecified (principal); I45.10 Unspecified right bundle-branch block; I10 Essential (primary) hypertension | CPT/HCPCS: 93005 ==

== ENCOUNTER 2022-04-21 06:47 | Day surgery (SDC) | payer BC, SELFPAY ==
[2022-04-17 15:11] VITALS: BMI 27.4
[2022-04-21 07:53] VITALS: BP 139/83; PULSE 92; RESP 18; TEMP 36.8; O2SAT 97; BMI 27.4
[2022-04-21] MEDS: Lactated Ringers 1,000 ML 100 ML IVCONT (08:12)
--- NOTE | 2022-04-21 08:14 | HO.ANESPROP2 ---
[facility] Active Problems Active Problems: All Active Problems (Updated 04/17/22 @ 14:58 by Lashon Chi RN) Wall motion abnormality of inferior wall of left ventricle (Acute) Smoking (Acute) Globus sensation (Acute) GERD (gastroesophageal reflux disease) (Acute) Rash and nonspecific skin eruption (Acute) Difficulty swallowing (Acute) Diabetes mellitus with hyperglycemia, without long-term current use of insulin (Acute) Eczema of lower leg (Acute) RBBB (right bundle branch block) (Acute) Sinus tachycardia by electrocardiogram (Acute) Smoker unmotivated to quit (Acute) Mixed dyslipidemia (Acute) Hx of skin cancer, basal cell (Acute) Epiploic appendagitis (Acute) Seasonal allergic rhinitis (Acute) Family history of prostate cancer (Acute) Essential hypertension (Acute) Past Medical History Medical History Depression Diabetes mellitus with hyperglycemia, without long-term current use of insulin Difficulty swallowing Eczema of lower leg Epiploic appendagitis Essential hypertension Family history of prostate cancer Hx of skin cancer, basal cell Hypertriglyceridemia Lesion of left nipple Mixed dyslipidemia Prostate cancer screening Rash and nonspecific skin eruption RBBB (right bundle branch block) Seasonal allergic rhinitis Sinus tachycardia by electrocardiogram Smoker unmotivated to quit Family History Family History Father Stroke Aneurysm Cancer of prostate Mother Asbestos exposure Lung cancer Smoker Maternal Grandfather No problems noted. Maternal Grandmother No problems noted. Paternal Grandfather No problems noted. Paternal Grandmother No problems noted. Maternal Aunt Diabetes mellitus Sister No problems noted. Family history of problems with anesthesia: No Surgical History Surgical History H/O arthroscopy of shoulder History of basal cell carcinoma excision History of colonoscopy History of inguinal hernia repair History of tonsillectomy History of Problems with Anesthesia: No Social History Social History Housing: House Alcohol intake: current Alcohol intake frequency: a few times a week Alcohol type: wine Patient Tobacco Use Status: Former Tobacco user Quit Date: 10/2021 Tobacco use type: Cigarette e-Cigarette/Vaping Use: Never Used Use of substances other than those prescribed or required for medical reasons: Yes Substance Use Type: Marijuana Substance Use Frequency: Occasionally Have you been hit, kicked, punched, or otherwise hurt by someone within the past year? If so, by whom?: No Are you DNR?: No Advance Directives: No Advance Directives Information Provided: Yes (brochure mailed) Advance Directives on File: No Recently lost weight without trying: No Eating poorly because of decreased appetite: No Nutrition Risks: No Nutritional Risk Poor oral hygiene: No service: No Current occupational status: employed Cognitive needs: No Hearing needs: No Vision needs: Yes Meds Allergies Allergy/AdvReac Type Severity Reaction Status Date / Time barium sulfate Allergy Intermediate rash Verified 04/17/22 15:09 [email or web address] Allergy Intermediate rash Verified 04/17/22 15:09 Active Medications: Current Medications Albuterol Sulfate (Albuterol Sulfate (0.083%) 2.5 Mg/3 Ml Vial.Neb) 2.5 mg INHALE ONCE PRN PRN Reason: Shortness of Breath/Wheezing Lactated Ringer's (Lr) 1,000 mls @ 100 mls/hr IVCONT .Q10H OLI Last Admin: 04/21/22 08:12 Dose: 100 mls/hr Ondansetron HCl (Ondansetron Hcl 4 Mg/2 Ml Vial) 4 mg IVPUSH ONCE PRN PRN Reason: Nausea and Vomiting Exam Exam Date and Time: April 21, 2022 0814 Height,Weight and Vital Signs: Height 5 ft 5 in Weight 74.843 kg Last Vital Signs Temp 98.2 F 04/21/22 07:53 Pulse 92 04/21/22 07:53 Resp 18 04/21/22 07:53 BP 139/83 04/21/22 07:53 Pulse Ox 97 04/21/22 07:53 O2 Del Method 04/21/22 07:53 Airway Mallampati Class: I TM Dist: >3cm Loose/Missing/Broken Teeth: No Heart: rrr Lungs: clear Assessment and Plan Final Anesthetic Review Family History of Problems with Anesthesia: No History of Problems with Anesthesia: No NPO: Yes ASA Class: II Final Preanesthetic Review: No Changes in Pt Med Stat, Meds/Allgs Chart Reviewed, Consent Obtained/Reviewed and Anes Risks/Benef Reviewed Patient Risk: Intermediate Procedure Risk: Low Anesthetic Plan Anesthetic Plan: MAC: Disposition: Standard PACU
--- NOTE | 2022-04-21 08:31 | MHC.SHP ---
Pre-Procedural Eval Section A Date of Service: 04/21/22 The History & Physical has been completed within 30 days and I have reviewed it.: Yes Section B Chief Complaint: Dysphagia, Allergies: Allergies Allergy/AdvReac Type Severity Reaction Status Date / Time barium sulfate Allergy Intermediate rash Verified 04/17/22 15:09 [email or web address] Allergy Intermediate rash Verified 04/17/22 15:09 Plan Diagnosis/Plan: Unchanged I have reviewed the history and physical and performed a pertinent physical examination on my patient. No changes have occurred unless specified. Time Spent With Patient Time: Total time managing care of this patient today ____ minutes.
--- NOTE | 2022-04-21 08:32 | W.PM.OPN ---
Operative Note Operative Note Date of Service: 04/21/22 Narrative: Procedure: Esophagogastroduodenoscopy Endoscopist: Rosemarie Londono MD Indication: GERD, dysphagia Anesthesia Provider: Dr Lance Banda Anesthesia Type: MAC ?? EGD Procedure:?? The procedure, indications, preparation and potential complications were reviewed with the patient, who indicated understanding and gave written informed consent to proceed. A physical exam was performed. The endoscope was introduced through the mouth, and advanced to the second part of duodenum. The mucosa was carefully examined on slow withdrawal of the endoscope. The patient tolerated the procedure well. There were no immediate complications.? ? EGD Findings:? Esophagus:? Normal mucosa noted in the entire esophagus. Mild narrowing of the lower esophagus was noted but scope easily traversed through this. The Z line was at 40. Small salmon pink colored tongue was noted to extend up to 39 cm. Cold forceps biopsies were taken to rule out Reid's esophagus. Middle esophagus forceps biopsies were obtained to rule out eosinophilic esophagitis. Stomach:? Normal mucosa was noted in the stomach. Random gastric biopsies were taken to rule out H Pylori infection. Duodenum:? Normal mucosa was noted in the whole of the examined duodenum. Additional intervention: A Savary wire was introduced through the biopsy channel and advanced to the antrum. The endoscope was then removed. A Savary- Zaid bougie was advanced over the guidewire and the esophagus was dilated to 16 mm. Significant resistance was felt and therefore we elected to not dilate further. On relook, there were two superficial tears with scant heme noted at 38cm and 36 cm. EGD Impressions:? Lower esophagus stricture (dilation) Irregular Z line > 1cm (biopsy) Normal stomach (biopsy) Normal duodenum ?? Recommendations:?? Follow biopsy results. Our office will call or send a letter with results within 7-10 days. Start/continue PPI therapy. If H pylori +, patient will be prescribed eradication therapy followed by test of cure. Avoid NSAIDs. Above has been reviewed with the patient. Relevant educational hand outs were provided at discharge.
[2022-04-21 09:00] VITALS: BP 99/50; PULSE 91; RESP 17; TEMP 36.2; O2SAT 94
[2022-04-21 09:20] VITALS: BP 106/72; PULSE 84; RESP 18; TEMP 36.1; O2SAT 96
== END 2022-04-21 09:33 | disposition home or self-care (01) ==
PROVIDERS: PCP Internal Medicine; Visit Provider Internal Medicine
PROC: 0DJ08ZZ Inspection of Upper Intestinal Tract, Via Natural or Artificial Opening Endoscopic (ICD-10-PCS; CPT 43235; principal; 2022-04-21 08:10)
DX: R13.10 Dysphagia, unspecified (principal); K22.2 Esophageal obstruction; K29.50 Unspecified chronic gastritis without bleeding; R09.89 Other specified symptoms and signs involving the circulatory and respiratory systems; I10 Essential (primary) hypertension; K21.9 Gastro-esophageal reflux disease without esophagitis; E78.5 Hyperlipidemia, unspecified; R00.0 Tachycardia, unspecified; J30.2 Other seasonal allergic rhinitis; E11.65 Type 2 diabetes mellitus with hyperglycemia; I45.10 Unspecified right bundle-branch block; Z91.041 Radiographic dye allergy status; Z88.8 Allergy status to other drugs, medicaments and biological substances; Z85.828 Personal history of other malignant neoplasm of skin; Z87.891 Personal history of nicotine dependence
CPT/HCPCS: 43248; 43239; 82947; 88305; 88342; C1769

== ENCOUNTER → 2022-05-12 13:17 | Outpatient (BNVA) | payer BC, SELFPAY | PROVIDERS: PCP Internal Medicine; Visit Provider Internal Medicine | DX: Z13.89 Encounter for screening for other disorder (principal) ==

== ENCOUNTER 2022-06-16 06:25 | Outpatient (REF) | payer BC, SELFPAY ==
[2022-06-16 12:14] LABS: Estimated Average Glucose 192 mg/dL; Hemoglobin A1c % 8.3 %
== END 2022-06-16 06:26 | disposition home or self-care (01) ==
LOC: HO.HMGCLDS 06:25
PROVIDERS: PCP Internal Medicine; Visit Provider Internal Medicine
DX: Z13.89 Encounter for screening for other disorder (principal)
CPT/HCPCS: 36415; 83036

== ENCOUNTER 2022-09-15 07:08 | Outpatient (REF) | payer BC, SELFPAY ==
[2022-09-15 12:22] LABS: Alanine Aminotransferase 27 U/L (0-40); Anion Gap 16 (12-20); Aspartate Amino Transferase 14 U/L (5-37); Blood Urea Nitrogen 24 mg/dL (9-16); Calcium 9.6 mg/dL (8.4-10.2); Carbon Dioxide 25 mmol/L (22-29); Chloride 105 mmol/L (96-108); Cholesterol 185 mg/dL; Estimated Glomerular Filt Rate 59; Glucose Fasting 190 mg/dL (60-99); HDL Cholesterol 44 mg/dL; LDL Cholesterol Calculated 115 mg/dl; Sodium 141 mmol/L (135-145); Triglycerides 132 mg/dL
[2022-09-15 12:26] LABS: Estimated Average Glucose 180 mg/dL; Hemoglobin A1c % 7.9 %
[2022-09-15 12:37] LABS: Creatinine Urine 74.69 mg/dL; Microalbum/Creatinine Ratio Ur 41.5 ug/mg cr
== END 2022-09-15 07:09 | disposition home or self-care (01) ==
LOC: HO.HMGCLDS 07:08
PROVIDERS: PCP Internal Medicine; Visit Provider Internal Medicine
DX: E11.65 Type 2 diabetes mellitus with hyperglycemia (principal); E78.2 Mixed hyperlipidemia; I10 Essential (primary) hypertension
CPT/HCPCS: 36415; 80048; 80061; 82043; 83036; 84450; 84460

== ENCOUNTER → 2022-10-16 12:31 | Outpatient (BNVA) | payer BC, SELFPAY | PROVIDERS: PCP Internal Medicine; Referring Provider Internal Medicine; Visit Provider Internal Medicine Cardiovascular Disease | DX: I45.10 Unspecified right bundle-branch block (principal); I10 Essential (primary) hypertension; R00.0 Tachycardia, unspecified | CPT/HCPCS: 93005 ==

== ENCOUNTER 2022-12-18 08:51 | Outpatient (AMB) | payer BC, SELFPAY ==
--- NOTE | 2022-12-18 09:04 | A.OFFVIS_ITS ---
Intake Vital Signs 12/18/22 09:05 Height 5 ft 5 in Weight 168 lb 6.931 oz BMI 28.0 BP 110/76 Blood Pressure Location Lt brachial Position Sitting Pulse 106 H Pulse Source Monitor Intake Visit Reasons: 2 mth fu Intake Note: 2 month follow up with EKG. Training Personnel Supervisor Required: No Accompanied by: Self / Same As Patient Allergies barium sulfate Allergy (Intermediate, Verified 12/18/22 09:06) rash [email or web address] Allergy (Intermediate, Verified 12/18/22 09:06) rash Medication List - Last Reconciled 12/18/22 by Jerry Vanegas MD bupropion HCl 150 mg PO QAM carvedilol 3.125 mg PO BID empagliflozin (Jardiance) 25 mg PO QAM fluticasone propionate 50 mcg/actuation (Allergy Relief (fluticasone)) 1 spray intranasal BID lisinopril 20 mg PO DAILY loratadine (Allergy Relief (loratadine)) 10 mg PO DAILY PRN metformin 1,000 mg PO BID 90 days omeprazole 10 mg PO DAILY 90 days rosuvastatin 5 mg PO 3XW 90 days HPI HPI Comments History of Present Illness Details 67-year-old gentleman here for follow-up. He was seen in the hospital when he presented with syncope which was thought to be related to orthostasis and dehydration. He underwent echocardiography which showed basal inferior wall motion abnormality. He underwent stress testing which did not show any perfusion defects. Holter monitor also did not show any significant arrhythmia. He is very anxious and has sinus tachycardia. It appears he had sinus tachycardia previously too. He is denying chest discomfort or shortness of breath. on follow-up he is stabl e. He still is sinus tachycardia on follow-up. On this and follow up his blood pressure is also mildly elevated. His denying any chest discomfort shortness of breath. At home he is saying his heart rates are stable. He has not checked his blood pressure at home. Compliant with medications. 12/18/22: He returns for f/u. This visit we started him on carvedilol 3.125 mg twice a day for high blood pressure. His blood pressure on follow-up is 110/76. He has no chest discomfort or shortness of breath. He is saying his diabetes control still good. He has had morning sugars of 190s. [facility] Medical History (Updated 10/16/22 @ 13:11 by Jerry Vanegas MD) Diabetes mellitus with hyperglycemia, without long-term current use of insulin Epiploic appendagitis Essential hypertension Family history of prostate cancer Hx of skin cancer, basal cell Hypertriglyceridemia Mixed dyslipidemia Prostate cancer screening Rash and nonspecific skin eruption RBBB (right bundle branch block) Seasonal allergic rhinitis Sinus tachycardia by electrocardiogram Surgical History H/O arthroscopy of shoulder History of basal cell carcinoma excision History of colonoscopy History of esophagogastroduodenoscopy (EGD) History of inguinal hernia repair History of tonsillectomy Family History Father Stroke Aneurysm Cancer of prostate Mother Asbestos exposure Lung cancer Smoker Maternal Grandfather No problems noted. Maternal Grandmother No problems noted. Paternal Grandfather No problems noted. Paternal Grandmother No problems noted. Maternal Aunt Diabetes mellitus Sister No problems noted. Social History Housing: House Alcohol intake: current Alcohol intake frequency: a few times a week Alcohol type: wine Patient Tobacco Use Status: Former Tobacco user Quit Date: 10/2021 Tobacco use type: Cigarette e-Cigarette/Vaping Use: Never Used Substance Use Type: Marijuana service: No Current occupational status: employed Cognitive needs: No Hearing needs: No Vision needs: Yes Review of Systems Const Denies weakness ENT Denies dizziness Card Denies chest pain, Denies chest pain with activity, Denies syncope, Denies rapid heart rate, Denies pedal edema, Denies edema, Denies leg edema, Denies lightheadedness, Denies palpitations, Denies dyspnea, Denies dyspnea on exertion and Denies orthopnea Resp Denies cough, Denies dyspnea and Denies dyspnea on exertion GI Denies hematochezia and Denies change in stool character Musc Denies abnormal gait, Denies muscle cramps, Denies muscle weakness, Denies numbness, Denies radiating pain into limb and Denies tingling Neuro Denies abnormal gait, Denies dizziness, Denies syncope, Denies numbness, Denies tingling and Denies weakness Endo Denies palpitations Physical Exam Vital Signs: BMI result Body Mass Index 28.0 GENERAL APPEARANCE: in no acute distress, anxious appearing. NECK: no carotid bruit, no jugular venous distention. SKIN: no suspicious lesions, warm and dry. HEART: no murmurs, regular rate and rhythm. LUNGS: clear to auscultation bilaterally. ABDOMEN: soft, nontender. EXTREMITIES: no edema. PERIPHERAL PULSES: equal. NEUROLOGIC: No gross deficits, AAO X 3 Office Procedures EKG Details: Sinus tachycardia 106 beats per minute, right bundle-branch block, QRS 140 milliseconds, cannot rule out lateral infarct, QTC 496 milliseconds. [id number], Complete Assessment & Plan Assessment & Plan (1) Sinus tachycardia: Code(s): R00.0 - Tachycardia, unspecified (2) RBBB (right bundle branch block): Code(s): I45.10 - Unspecified right bundle-branch block (3) Essential hypertension: Code(s): I10 - Essential (primary) hypertension Plan Pleasant 67-year-old gentleman who is here for follow-up. He has background history of right bundle-branch block and hypertension. Previously was taking lisinopril 20 mg daily. We added carvedilol 3.125 mg twice a day. His blood pressure is 110/76. He has sinus tachycardia when he comes to office visits but home blood pressure readings and heart rates are within control. Tachycardia likely due to anxiety. Denying any chest discomfort shortness of breath. Follow-up with us in 4-6 months. Thank you for allowing me to participate in the care of your patient. Please feel free to contact me if you have any questions. Coding Level of Care Code Est Pt Level 3 (95526) Diagnoses Sinus tachycardia R00.0 RBBB (right bundle branch block) I45.10 Essential hypertension I10 CPT Codes EKG - CPT: 69540-[id number], Complete ([id number])
[2022-12-18 09:05] VITALS: BP 110/76; PULSE 106; BMI 28.0
== END 2022-12-18 09:21 | disposition home or self-care (01) ==
PROVIDERS: PCP Internal Medicine; Referring Provider Internal Medicine; Visit Provider Internal Medicine Cardiovascular Disease
DX: R00.0 Tachycardia, unspecified (principal); I45.10 Unspecified right bundle-branch block; I10 Essential (primary) hypertension
CPT/HCPCS: 93010; 99213

== ENCOUNTER → 2022-12-18 08:51 | Outpatient (BNVA) | payer BC, SELFPAY | PROVIDERS: PCP Internal Medicine; Referring Provider Internal Medicine; Visit Provider Internal Medicine Cardiovascular Disease | DX: I45.10 Unspecified right bundle-branch block (principal); R00.0 Tachycardia, unspecified; I10 Essential (primary) hypertension; Z79.899 Other long term (current) drug therapy | CPT/HCPCS: 93005 ==

== ENCOUNTER 2022-12-29 06:35 | Outpatient (REF) | payer BC, SELFPAY ==
[2022-12-29 11:51] LABS: Estimated Average Glucose 186 mg/dL; Hemoglobin A1c % 8.1 % (<6.0)
[2022-12-29 12:02] LABS: Alanine Aminotransferase 24 U/L (0-40); Anion Gap 17 (12-20); Aspartate Amino Transferase 15 U/L (5-37); Blood Urea Nitrogen 23 mg/dL (9-16); Calcium 10.1 mg/dL (8.4-10.2); Carbon Dioxide 19 mmol/L (22-29); Chloride 106 mmol/L (96-108); Cholesterol 186 mg/dL (<200); Estimated Glomerular Filt Rate > 60; Glucose Fasting 177 mg/dL (60-99); HDL Cholesterol 39 mg/dL (>40); LDL Cholesterol Calculated 87 mg/dL (<100); Potassium 4.3 mmol/L (3.3-5.1); Sodium 138 mmol/L (135-145); Triglycerides 300 mg/dL (<150)
[2022-12-29 12:26] LABS: Creatinine Urine 84.64 mg/dL; Microalbum/Creatinine Ratio Ur 16.5 ug/mg cr (<30)
== END 2022-12-29 06:36 | disposition home or self-care (01) ==
LOC: HO.HMGCLDS 06:35
PROVIDERS: PCP Internal Medicine; Visit Provider Internal Medicine
DX: E11.65 Type 2 diabetes mellitus with hyperglycemia (principal); E78.2 Mixed hyperlipidemia; I10 Essential (primary) hypertension
CPT/HCPCS: 36415; 80048; 80061; 82043; 82570; 83036; 84450; 84460

== ENCOUNTER 2023-01-11 15:39 | Outpatient (AMB) | payer BC, SELFPAY ==
--- NOTE | 2023-01-11 16:03 | A.OFFPC_ITS ---
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 Allergies barium sulfate Allergy (Intermediate, Verified 01/11/23 16:30) rash varenicline Allergy (Intermediate, Verified 01/11/23 16:30) rash Medication List - Last Reconciled 01/11/23 by Dianna Huitron MD bupropion HCl 150 mg PO QAM carvedilol 3.125 mg PO BID empagliflozin (Jardiance) 25 mg PO QAM fluticasone propionate 50 mcg/actuation (Allergy Relief (fluticasone)) 1 spray intranasal BID lisinopril 20 mg PO DAILY loratadine (Allergy Relief (loratadine)) 10 mg PO DAILY PRN metformin 1,000 mg PO BID 90 days omeprazole 10 mg PO DAILY 90 days rosuvastatin 5 mg PO 3XW 90 days Tobacco use date assessed: 09/18/22 Fall risk assessment: No Falls in past year Last assessed Fall Risk: 01/11/23 Dental Screening Dental Screen Date: 01/11/23 Did you have a dental visit in the last 12 months?: Yes Did you have a dental problem in the last 6 months where you did not have access to dental care?: No Was dental information given to patient?: Patient has dentist HPI 3 Month follow up HPI Details 67-year-old male with diabetes mellitus, dyslipidemia, hypertension, GERD, here today for follow-up. He has not really been following any particular diet this past several months, and admits to being sedentary most of the time. He has been eating more fish however, but has been eating more pasta as well as he is a lot of vegetables and tomatoes in his garden. He has an appointment for his diabetes retinopathy screening with Dr. Bullard later this January 2023. Does not want to get the COVID booster but is going to be getting his yearly flu vaccine. [facility] Medical History Rash and nonspecific skin eruption RBBB (right bundle branch block) Sinus tachycardia by electrocardiogram Mixed dyslipidemia Hx of skin cancer, basal cell Epiploic appendagitis Seasonal allergic rhinitis Hypertriglyceridemia Family history of prostate cancer Prostate cancer screening Essential hypertension Diabetes mellitus with hyperglycemia, without long-term current use of insulin Surgical History History of esophagogastroduodenoscopy (EGD) History of inguinal hernia repair History of colonoscopy H/O arthroscopy of shoulder History of basal cell carcinoma excision History of tonsillectomy Family History Father Stroke Aneurysm Cancer of prostate Mother Asbestos exposure Lung cancer Smoker Maternal Grandfather No problems noted. Maternal Grandmother No problems noted. Paternal Grandfather No problems noted. Paternal Grandmother No problems noted. Maternal Aunt Diabetes mellitus Sister No problems noted. Social History Housing: House Alcohol intake: current Alcohol intake frequency: a few times a week Alcohol type: wine Patient Tobacco Use Status: Former Tobacco user Quit Date: 10/2021 Tobacco use type: Cigarette e-Cigarette/Vaping Use: Never Used Substance Use Type: Marijuana service: No Current occupational status: employed Cognitive needs: No Hearing needs: No Vision needs: Yes Questionnaire PHQ-9 Over the last 2 weeks, how often have you been bothered by any of the following problems? Depression Screening Interpretation: Negative Source: Developed by Drs. Deven Carrizales, Deandre Saldana and colleagues, with an educational emili from [employer]. Thrive Questionnaire Date Thrive assessed: 06/20/22 JE-7 AMB Questionnaire JE-7 Date JE - 7 assessed: 06/20/22 Source: Developed by Drs. Deven Carrizales, Deandre Saldana and colleagues, with an educational emili from [employer]. Review of Systems Const Denies weakness Eyes Reports no additional complaints ENT Denies dizziness Card Denies chest pain, Denies chest pain with activity, Denies syncope, Denies rapid heart rate, Denies leg edema, Denies lightheadedness, Denies palpitations, Denies dyspnea and Denies dyspnea on exertion Resp Denies cough, Denies dyspnea and Denies dyspnea on exertion GI Denies hematochezia and Denies change in stool character Denies dysuria, Reports urinary frequency, Denies urinary hesitancy and Denies urinary incontinence Musc Denies abnormal gait, Denies muscle cramps, Denies muscle weakness, Denies numbness, Denies radiating pain into limb and Denies tingling Neuro Denies abnormal gait, Denies dizziness, Denies syncope, Denies numbness, Denies tingling and Denies weakness Endo Denies palpitations Physical exam (Primary Care) Vital Signs: Last Vital Signs Pulse 97 01/11/23 16:04 BP 118/70 01/11/23 16:04 Pulse Ox 98 01/11/23 16:04 BMI result Body Mass Index 28.3 Tobacco/Smoking Status: Tobacco use Status Tobacco use date assessed 09/18/22 01/11/23 16:03 Patient Tobacco Use Status Former Tobacco user 01/11/23 16:03 Tobacco use type Cigarette 01/11/23 16:03 e-Cigarette/Vaping Use Never Used 01/11/23 16:03 Depression Screening Interpretation: Negative Thrive Assessment: Date of Thrive Assessment Date Thrive assessed 06/20/22 01/11/23 16:03 Const General: no acute distress Nutritional Appearance: overweight Orientation/consciousness: patient oriented x3 HENMT Head: Yes normal to inspection Ears: external ears normal, TM normal on the right and EAC's normal General nose exam: Normal external nose present Face and sinus: Yes sinuses nontender Mouth: Normal oral and palatal mucosa present, oropharynx normal and moist mucous membranes Eyes General: appearance normal, both eyes and all related structures Neck Neck: Yes supple Resp Effort & Inspection: normal respiratory effort Auscultation: clear to auscultation bilaterally Cardio Rhythm: regular rhythm Heart sounds: S1 normal heart sound present and S2 normal heart sound present GI Inspection: Yes normal to inspection General: Yes no CVA tenderness Male General Exam: Yes normal external exam Back/Spine/Pelvis Back: no CVA tenderness and No back tenderness Skin General skin exam: no rashes or lesions noted Neuro General: patient oriented x3 Extrem General: Yes full ROM, Yes normal exam except as noted, Yes no joint enlargement, Yes no clubbing, cyanosis or edema, Yes no calf tenderness and Yes normal gait Results Reviewed Results Reviewed: RUN: 01/11/23 4299 PAGE 1 [facility] [address] [place] [id number] Chief Construction Inspector: Mainor Tamayo M.D. Specimen Inquiry Name: Fan Lorenzo Jr Age/Sex: 67/M : 1955 Unit#: [id number] Attend Dr: Dianna Huitron MD Re12/29/22 Status: DEP [facility] Disch: SPEC : [id number] AYSHA: 12/29/22 STATUS: COMP REQ : [id number] RECD: 12/29/22-[address]: Dianna Huitron MD COMP: 12/29/22-1202 ENTERED: 12/29/22-[address] [facility] [address]: ORDERED: Met Prof Fast, AST, ALT, Lipid Panel Test Result Flag Reference Site Sodium 138 135-145 mmol/L Potassium 4.3 3.3-5.1 mmol/L CL 106 96-108 mmol/L CO2 19 L 22-29 mmol/L Gap 17 12-20 BUN 23 H 9-16 mg/dL Creat 0.99 0.5-1.4 mg/dL EGFR > 60 NOTE: For -[place] individuals, multiply the result by 1.210. Chronic Kidney Disease: Estimated GFR < 60 mL/min/1.73m2 Severe Kidney Disease: Estimated GFR < 15 mL/min/ 1.73m2 FBS 177 H 60-99 mg/dL A fasting glucose of 126 mg/dl or greater on more than one occasion is considered diagnostic of diabetes. CA 10.1 8.4-10.2 mg/dL AST (GOT) 15 5-37 U/L ALT (GPT) 24 0-40 U/L Triglyceride 300 H <150 mg/dL Desirable Triglyceride: less than 150 mg/dL Borderline High Triglyceride 150-199 mg/dL High Triglyceride: 200-499 mg/dL Very High Triglyceride: greater than or equal to 5OO mg/dL Cholesterol 186 <200 mg/dL Desirable Cholesterol: less than 200 mg/dL Borderline High Cholesterol: 200-239 mg/dL High Cholesterol: greater than 239 mg/dL LDL Calculated 87 <100 mg/dL Desirable LDL: less than 100 mg/dL Near Optimal/Above Optimal LDL: 110-129 mg/dL Borderline High LDL: 130-159 mg/dL High LDL: 160-189 mg/dL Very High LDL: greater than or equal to 190 mg/dL HDL 39 L >40 mg/dL Desirable HDL: greater than 40 mg/dL Note: This HDL assay may give artificially low results in patients with liver disease. Laboratory Tests 12/29/22 06:44 Estimat Average Glucose 186 Hemoglobin A1c % 8.1 H Assessment and Plan Assessment & Plan (1) Diabetes mellitus with hyperglycemia, without long-term current use of insulin: Code(s): E11.65 - Type 2 diabetes mellitus with hyperglycemia Qualifiers: Diabetes mellitus type: type 2 Qualified Code(s): E11.65 - Type 2 diabetes mellitus with hyperglycemia Plan: Will continue on metformin and Jardiance, and added Ozempic 0.25 mg, injected intramuscularly once a week. Discussed possible side effects of medication which may include diarrhea, nausea, abdominal cramping September 28 couple of days of starting medication. Reinforced importance of following diabetic diet and getting regular exercise. Up-to-date with his diabetes retinopathy screening. Will recheck another hemoglobin A1c, electrolytes liver function test in 3 months. Reminded to get his flu shot, declines getting COVID booster. (2) Mixed dyslipidemia: Code(s): E78.2 - Mixed hyperlipidemia Plan: Reviewed recent fasting lipid profile with patient with markedly elevated triglycerides with normal LDL cholesterol. . Continue with rosuvastatin 5 mg 1 tablet 3 times a week , in addition to adherence to low-cholesterol diet and regular exercise, at least 30 minutes 3 to 4 times a week. Advised patient to make healthy food choices, eat more fruits, vegetables, whole grains, wild caught fish and low-fat dairy. Limit amount of meat and fried or fatty food products, as well as processed foods and fast foods. Follow-up scheduled with repeat fasting lipid panel in 3 months. (3) Essential hypertension: Code(s): I10 - Essential (primary) hypertension Plan: Blood pressure at goal of less than 130/80. Continue with current medication. Reinforced importance of following a low sodium diet, getting regular exercise, and lowering stress levels. Orders: Orders Hemoglobin A1c 03/30/23.65 - Type 2 diabetes mellitus with hyperglycemia, E78.2 - Mixed hyperlipidemia, I10 - Essential (primary) hypertension Lipid Panel 03/30/23.65 - Type 2 diabetes mellitus with hyperglycemia, E78.2 - Mixed hyperlipidemia, I10 - Essential (primary) hypertension Alanine Aminotransferase 03/30/23.65 - Type 2 diabetes mellitus with hyperglycemia, E78.2 - Mixed hyperlipidemia, I10 - Essential (primary) hypertension Aspartate Amino Transferase 03/30/23.65 - Type 2 diabetes mellitus with hyperglycemia, E78.2 - Mixed hyperlipidemia, I10 - Essential (primary) hypertension Basic Metabolic Panel Fasting 03/30/23.65 - Type 2 diabetes mellitus with hyperglycemia, E78.2 - Mixed hyperlipidemia, I10 - Essential (primary) hyperten rosa Medications: New Ozempic (semaglutide) for 4 weeks 0.25 mg (0.368 mL) subcut QWEEK 30 days 3 mL 3RF NS Coding Level of Care Code Est Pt Level 4 (12479) Diagnoses Type 2 diabetes mellitus with hyperglycemia, without long-term current use of insulin Diabetes mellitus type: type 2 Mixed dyslipidemia E78.2 Essential hypertension I10
[2023-01-11 16:04] VITALS: BP 118/70; PULSE 97; O2SAT 98; BMI 28.3
== END 2023-01-11 16:45 | disposition home or self-care (01) ==
PROVIDERS: PCP Internal Medicine; Visit Provider Internal Medicine
DX: E11.65 Type 2 diabetes mellitus with hyperglycemia (principal); E78.2 Mixed hyperlipidemia; I10 Essential (primary) hypertension
CPT/HCPCS: 99214

== ENCOUNTER 2023-01-30 08:14 | Outpatient (AMB) | payer BC, SELFPAY ==
[2023-01-30 08:20] VITALS: BP 120/72; PULSE 89; BMI 28.2
--- NOTE | 2023-01-30 08:20 | MHC.OFFVIS ---
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 Allergies barium sulfate Allergy (Intermediate, Verified 01/30/23 08:24) rash varenicline Allergy (Intermediate, Verified 01/30/23 08:24) rash Medication List - Last Reconciled 01/30/23 by Breanna Malone, COVER CREASER-C bupropion HCl 150 mg PO QAM carvedilol 3.125 mg PO BID empagliflozin (Jardiance) 25 mg PO QAM fluticasone propionate 50 mcg/actuation (Allergy Relief (fluticasone)) 1 spray intranasal BID lisinopril 20 mg PO DAILY loratadine (Allergy Relief (loratadine)) 10 mg PO DAILY PRN metformin 1,000 mg PO BID 90 days omeprazole 10 mg PO DAILY 90 days Ozempic (semaglutide) 0.25 mg (0.368 mL) subcut QWEEK 30 days NS rosuvastatin 5 mg PO 3XW 90 days HPI 6 wk f/up KM HPI Details Fan is a 67-year-old male with past medical history of hypertension, hyperlipidemia, diabetes, right bundle branch block, prior syncope, abnormal finding on echo who presents for follow-up. Today he reports he has been feeling very good with no concerning symptoms. He denies any recurrent syncopal events. No lightheadedness, presyncope, falls. No shortness of breath, PND, orthopnea or edema. No chest discomfort at rest or with activity. Has been working out using a home gym which he tolerates well. Taking meds as directed. [facility] Medical History Rash and nonspecific skin eruption RBBB (right bundle branch block) Sinus tachycardia by electrocardiogram Mixed dyslipidemia Hx of skin cancer, basal cell Epiploic appendagitis Seasonal allergic rhinitis Hypertriglyceridemia Family history of prostate cancer Prostate cancer screening Essential hypertension Diabetes mellitus with hyperglycemia, without long-term current use of insulin Surgical History History of esophagogastroduodenoscopy (EGD) History of inguinal hernia repair History of colonoscopy H/O arthroscopy of shoulder History of basal cell carcinoma excision History of tonsillectomy Family History Father Stroke Aneurysm Cancer of prostate Mother Asbestos exposure Lung cancer Smoker Maternal Grandfather No problems noted. Maternal Grandmother No problems noted. Paternal Grandfather No problems noted. Paternal Grandmother No problems noted. Maternal Aunt Diabetes mellitus Sister No problems noted. Social History Housing: House Alcohol intake: current Alcohol intake frequency: a few times a week Alcohol type: wine Patient Tobacco Use Status: Former Tobacco user Quit Date: 10/2021 Tobacco use type: Cigarette e-Cigarette/Vaping Use: Never Used Substance Use Type: Marijuana service: No Current occupational status: employed Cognitive needs: No Hearing needs: No Vision needs: Yes Review of Systems Const All systems reviewed & are unremarkable except as noted in HPI and below ENT Denies dizziness Card Denies chest pain, Denies chest pain at rest, Denies chest pain with activity, Denies rapid heart rate, Denies pedal edema, Denies edema, Denies leg edema, Denies lightheadedness, Denies palpitations, Denies dyspnea, Denies dyspnea on exertion and Denies orthopnea Resp Denies cough, Denies dyspnea and Denies dyspnea on exertion GI Denies hematochezia and Denies change in stool character Musc Denies abnormal gait, Denies limited range of motion, Denies muscle cramps, Denies muscle weakness, Denies numbness, Denies radiating pain into limb, Denies stiffness and Denies tingling Neuro Denies abnormal gait, Denies dizziness, Denies numbness and Denies tingling Endo Denies palpitations Physical Exam Vital Signs: Last Vital Signs Pulse 89 01/30/23 08:20 BP 120/72 01/30/23 08:20 BMI result Body Mass Index 28.2 Const General: cooperative, healthy appearing, comfortable and no acute distress Orientation/consciousness: patient oriented x3 Neck Neck: Yes normal visual inspection Resp Effort & Inspection: normal respiratory effort Auscultation: clear to auscultation bilaterally, no rales, no rhonchi and no wheezes Cardio Jugular venous distension: no JVD Rate: regular rate Rhythm: regular rhythm Heart sounds: S1 normal heart sound present, S2 normal heart sound present, no murmurs and no rubs Neuro General: patient oriented x3 Extrem General: Yes normal to inspection Psych Appearance: grossly normal Mental Status: mental status grossly normal Speech and movement: Normal speech and movement present Assessment & Plan Assessment & Plan (1) Sinus tachycardia: Code(s): R00.0 - Tachycardia, unspecified Plan: Previously noted to have sinus tachycardia at office visit and EKG. A Holter monitor done 12/07/2021 had shown sinus rhythm with average heart rate 86, heart rate range 71 to 114, rare ectopy. For his blood pressure and heart rate carvedilol was previously added. It was thought that anxiety was also contributing to his elevated rates. Today vital signs are well controlled. He offers no concerning symptoms. Will continue current med management using carvedilol. (2) RBBB (right bundle branch block): Code(s): I45.10 - Unspecified right bundle-branch block Plan: Noted on EKG (3) Essential hypertension: Code(s): I10 - Essential (primary) hypertension Plan: Well controlled at present time. Continue lisinopril and carvedilol. Labs done 12/29/2022 showed creatinine 0.99. (4) Abnormal echocardiogram findings without diagnosis: Code(s): R93.1 - Abnormal findings on diagnostic imaging of heart and coronary circulation Plan: Previous cardiac evaluation following syncopal event included an echocardiogram done 11/17/2021 showed EF 50-55%, basal inferior wall akinetic. This was followed by nuclear stress test 12/08/2021 which showed normal myocardial perfusion imaging. He has no reports of anginal sounding symptoms. He does have multiple cardiac risk factors including hypertension, hyperlipidemia, diabetes. He needs ongoing risk factor modification. This was reviewed with him. Cardiology follow-up in 1 year, sooner if needed Coding Level of Care Code Est Pt Level 4 (93983) Diagnoses Sinus tachycardia R00.0 RBBB (right bundle branch block) I45.10 Essential hypertension I10 Abnormal echocardiogram findings without diagnosis R93.1 Time Spent (min) 26
== END 2023-01-30 08:33 | disposition home or self-care (01) ==
PROVIDERS: PCP Internal Medicine; Visit Provider Nurse Practitioner Family
DX: R00.0 Tachycardia, unspecified (principal); I45.10 Unspecified right bundle-branch block; I10 Essential (primary) hypertension; R93.1 Abnormal findings on diagnostic imaging of heart and coronary circulation
CPT/HCPCS: 99214

== ENCOUNTER → 2023-01-30 08:14 | Outpatient (BNVA) | payer BC, SELFPAY | PROVIDERS: PCP Internal Medicine; Visit Provider Nurse Practitioner Family ==

== ENCOUNTER 2023-04-16 07:39 | Outpatient (REF) | payer BC, SELFPAY ==
[2023-04-16 11:53] LABS: Estimated Average Glucose 189 mg/dL; Hemoglobin A1c % 8.2 % (<6.0)
[2023-04-16 12:14] LABS: Alanine Aminotransferase 27 U/L (0-40); Anion Gap 14 (12-20); Aspartate Amino Transferase 16 U/L (5-37); Blood Urea Nitrogen 28 mg/dL (9-16); Calcium 9.7 mg/dL (8.4-10.2); Carbon Dioxide 23 mmol/L (22-29); Chloride 105 mmol/L (96-108); Cholesterol 164 mg/dL (<200); Estimated Glomerular Filt Rate > 60; Glucose Fasting 207 mg/dL (60-99); HDL Cholesterol 41 mg/dL (>40); LDL Cholesterol Calculated 91 mg/dL (<100); Potassium 4.4 mmol/L (3.3-5.1); Sodium 138 mmol/L (135-145); Triglycerides 161 mg/dL (<150)
== END 2023-04-16 07:40 | disposition home or self-care (01) ==
LOC: HO.HMGCLDS 07:39
PROVIDERS: PCP Internal Medicine; Visit Provider Internal Medicine
DX: E11.65 Type 2 diabetes mellitus with hyperglycemia (principal); E78.2 Mixed hyperlipidemia; I10 Essential (primary) hypertension
CPT/HCPCS: 36415; 80048; 80061; 83036; 84450; 84460

== ENCOUNTER 2023-04-19 16:01 | Outpatient (AMB) | payer BC, SELFPAY ==
--- NOTE | 2023-04-19 16:14 | A.OFFPC_ITS ---
Vital Signs 04/19/23 16:15 Height 5 ft 5 in Weight 169 lb 4 oz BMI 28.2 BP 140/88 H Blood Pressure Location Lt brachial Position Sitting Pulse 99 Pulse Source Pulse Oximeter Pulse Oximetry (%) 97 Oxygen Delivery Method Room Air Intake Visit Reasons: 3 month Intake Note: Pt is here to follow up for lab results Allergies barium sulfate Allergy (Intermediate, Verified 04/19/23 16:42) rash varenicline Allergy (Intermediate, Verified 04/19/23 16:42) rash Medication List - Last Reconciled 04/19/23 by Dianna Huitron MD bupropion HCl 150 mg PO QAM carvedilol 3.125 mg PO BID empagliflozin (Jardiance) 25 mg PO QAM fluticasone propionate 50 mcg/actuation (Allergy Relief (fluticasone)) 1 spray intranasal BID lisinopril 20 mg PO DAILY loratadine (Allergy Relief (loratadine)) 10 mg PO DAILY PRN metformin 1,000 mg PO BID 90 days omeprazole 10 mg PO DAILY rosuvastatin 5 mg PO 3XW 90 days Tobacco use date assessed: 04/19/23 Fall risk assessment: No Falls in past year Last assessed Fall Risk: 04/19/23 Dental Screening Dental Screen Date: 04/19/23 Did you have a dental visit in the last 12 months?: No Did you have a dental problem in the last 6 months where you did not have access to dental care?: No Was dental information given to patient?: Patient has dentist HPI 3 month HPI Details 67-year-old male here today for follow-u p on his diabetes mellitus, hyperlipidemia and hypertension. Has been taking his medications except for those Ozempic which was started on last visit. Patient states he read the side effects and was afraid to take it. Has not been compliant with his diet and does not get any regular exercise. Latest hemoglobin A1c still is at 8.2%, and fasting lipids are within normal limits. Blood pressure mildly elevated at 1 40/80. However he states that he has been feeling well, with no complaints at present time. Up-to-date with his diabetes retinopathy screening, done 03/27/[address] Bullard which showed no evidence of diabetic retinopathy by [facility] Medical History Rash and nonspecific skin eruption RBBB (right bundle branch block) Sinus tachycardia by electrocardiogram Mixed dyslipidemia Hx of skin cancer, basal cell Epiploic appendagitis Seasonal allergic rhinitis Hypertriglyceridemia Family history of prostate cancer Prostate cancer screening Essential hypertension Diabetes mellitus with hyperglycemia, without long-term current use of insulin Surgical History History of esophagogastroduodenoscopy (EGD) History of inguinal hernia repair History of colonoscopy H/O arthroscopy of shoulder History of basal cell carcinoma excision History of tonsillectomy Family History Father Stroke Aneurysm Cancer of prostate Mother Asbestos exposure Lung cancer Smoker Maternal Grandfather No problems noted. Maternal Grandmother No problems noted. Paternal Grandfather No problems noted. Paternal Grandmother No problems noted. Maternal Aunt Diabetes mellitus Sister No problems noted. Social History Housing: House Alcohol intake: current Alcohol intake frequency: a few times a week Alcohol type: wine Patient Tobacco Use Status: Former Tobacco user Quit Date: 10/2021 Tobacco use type: Cigarette e-Cigarette/Vaping Use: Never Used Substance Use Type: Marijuana service: No Current occupational status: employed Cognitive needs: No Hearing needs: No Vision needs: Yes Questionnaire PHQ-9 Over the last 2 weeks, how often have you been bothered by any of the following problems? Depression Screening Interpretation: Negative Depression Screening Done: Yes Source: Developed by Drs. Deven Carrizales, Nela Rowe, Deandre Phipps and colleagues, with an educational emili from [employer]. Thrive Questionnaire Date Thrive assessed: 06/20/22 JE-7 AMB Questionnaire JE-7 Date JE - 7 assessed: 06/20/22 Source: Developed by Drs. Deven Carrizales, Nela Rowe, Deandre Phipps and colleagues, with an educational emili from [employer]. Review of Systems Const Reports no additional complaints Eyes Details: Up-to-date with diabetes retinopathy screening with Dr. Bullard, none seen Reports no additional complaints ENT Denies dizziness Card Denies chest pain at rest, Denies chest pain with activity, Denies pedal edema, Denies edema, Denies lightheadedness, Denies palpitations, Denies dyspnea and Denies dyspnea on exertion Resp Denies cough, Denies dyspnea and Denies dyspnea on exertion GI Denies change in stool character Reports no additional complaints Musc Denies abnormal gait, Denies limited range of motion, Denies muscle cramps, Denies muscle weakness, Denies numbness, Denies radiating pain into limb, Denies stiffness and Denies tingling Neuro Denies abnormal gait, Denies dizziness, Denies numbness and Denies tingling Psych Reports no additional complaints Endo Denies palpitations Raghavendra/Lymph Reports no additional complaints Aller/Immun Reports no additional complaints Physical exam (Primary Care) Vital Signs: Last Vital Signs Pulse 99 04/19/23 16:15 BP 140/88 H 04/19/23 16:15 Pulse Ox 97 04/19/23 16:15 Oxygen Delivery Method Room Air 04/19/23 16:15 BMI result Body Mass Index 28.2 Tobacco/Smoking Status: Tobacco use Status Tobacco use date assessed 04/19/23 04/19/23 16:20 Patient Tobacco Use Status Former Tobacco user 04/19/23 16:15 Tobacco use type Cigarette 04/19/23 16:15 e-Cigarette/Vaping Use Never Used 04/19/23 16:15 Depression Screening Interpretation: Negative Thrive Assessment: Date of Thrive Assessment Date Thrive assessed 06/20/22 04/19/23 16:15 Const General: no acute distress Nutritional Appearance: overweight Orientation/consciousness: patient oriented x3 HENMT Head: Yes normal to inspection Ears: external ears normal, TM normal on the right and EAC's normal General nose exam: Normal external nose present Face and sinus: Yes sinuses nontender Mouth: Normal oral and palatal mucosa present, oropharynx normal and moist mucous membranes Eyes General: appearance normal, both eyes and all related structures Neck Neck: Yes supple Resp Effort & Inspection: normal respiratory effort Auscultation: clear to auscultation bilaterally Cardio Rhythm: regular rhythm Heart sounds: S1 normal heart sound present and S2 normal heart sound present GI Inspection: Yes normal to inspection General: Yes no CVA tenderness Male General Exam: Yes normal external exam Back/Spine/Pelvis Back: no CVA tenderness and No back tenderness Skin General skin exam: no rashes or lesions noted Neuro General: patient oriented x3 Extrem General: Yes full ROM, Yes normal exam except as noted, Yes no joint enlargement, Yes no clubbing, cyanosis or edema, Yes no calf tenderness and Yes normal gait Results Reviewed Results Reviewed: Name: Trish Castañeda Age/Sex: 72/F : 01/15/1951 Unit#: [id number] Attend Dr: Dianna Huitron MD Re04/12/23 Status: DEP [facility]F [facility] Disch: SPEC : [id number] AYSHA: 04/12/23 STATUS: COMP REQ : [id number] RECD: 04/12/[address]: Dianna Huitron MD COMP: 04/12/23 ENTERED: 04/12/23 [facility] DR: ORDERED: Met Prof Fast, AST, ALT, Lipid Panel, Vitamin D 25-OH Test Result Flag Reference Site Sodium 141 135-145 mmol/L Potassium 4.2 3.3-5.1 mmol/L CL 104 96-108 mmol/L CO2 30 H 22-29 mmol/L Gap 11 L 12-20 BUN 19 H 9-16 mg/dL Creat 0.77 0.5-1.4 mg/dL EGFR > 60 NOTE: For -[place] individuals, multiply the result by 1.210. Chronic Kidney Disease: Estimated GFR < 60 mL/min/1.73m2 Severe Kidney Disease: Estimated GFR < 15 mL/min/1.73m2 FBS 133 H 60-99 mg/dL A fasting glucose of 126 mg/dl or greater on more than one occasion is considered diagnostic of diabetes. CA 9.8 8.4-10.2 mg/dL AST (GOT) 19 5-31 U/L ALT (GPT) 14 0-31 U/L Triglyceride 101 <150 mg/dL Desirable Triglyceride: less than 150 mg/dL Borderline High Triglyceride 150-199 mg/dL High Triglyceride: 200-499 mg/dL Very High Triglyceride: greater than or equal to 5OO mg/dL Cholesterol 199 <200 mg/dL Desirable Cholesterol: less than 200 mg/dL Borderline High Cholesterol: 200-239 mg/dL High Cholesterol: greater than 239 mg/dL LDL Calculated 116 H <100 mg/dL Desirable LDL: less than 100 mg/dL Near Optimal/Above Optimal LDL: 110-129 mg/dL Borderline High LDL: 130-159 mg/dL High LDL: 160-189 mg/dL Very High LDL: greater than or equal to 190 mg/dL HDL 63 >40 mg/dL Desirable HDL: greater than 40 mg/dL Note: This HDL assay may give artificially low results in patients with liver disease. Vit D 25-OH Tot 77.5 >30 ng/mL Health Based Reference Values* < 20 ng/mL Deficient 20-30 ng/mL Insufficient > 30 ng/mL Sufficient Laboratory Tests 04/16/23 07:47 Estimat Average Glucose 189 Hemoglobin A1c % 8.2 H Assessment and Plan Assessment & Plan (1) Diabetes mellitus with hyperglycemia, without long-term current use of insulin: Code(s): E11.65 - Type 2 diabetes mellitus with hyperglycemia Qualifiers: Diabetes mellitus type: type 2 Qualified Code(s): E11.65 - Type 2 diabetes mellitus with hyperglycemia Plan: Continue metformin and Jardiance, advised to start and try taking Ozempic 0.25 mg injected once a week, rotate sites of injection. Discussed possible side effects of medication most common of which are abdominal cramping, nausea, some alteration in bowel movements either constipation or diarrhea PE up taking it if he develops any severe nausea severe diarrhea, abdominal cramping, jaundice . Stressed importance of following recommended diet and getting regular exercise. Up-to-date with his diabetes retinopathy screening. Will see him back for follow-up in 3 months after repeat fasting labs (2) Mixed dyslipidemia: Code(s): E78.2 - Mixed hyperlipidemia Plan: Fasting lipid results are within normal limits. Continue rosuvastatin 5 mg 1 tab 3 times a week, recheck another fasting lipid panel 3 my (3) Essential hypertension: Code(s): I10 - Essential (primary) hypertension Plan: Blood pressure no at goal of less than 130/80. Continue him on lisinopril 20 mg daily and carvedilol 3.125 mg 1 tablet twice a day peer Reinforced importance of following a low sodium diet, getting regular exercise, and lowering stress levels. Orders: Orders Hemoglobin A1c 06/29/23 E11.65 - Type 2 diabetes mellitus with hyperglycemia, E78.2 - Mixed hyperlipidemia, I10 - Essential (primary) hypertension Comprehensive [place]. Panel Fast 06/29/23 E11.65 - Type 2 diabetes mellitus with hyperglycemia, E78.2 - Mixed hyperlipidemia, I10 - Essential (primary) hypertension Lipid Panel 06/29/23 E11.65 - Type 2 diabetes mellitus with hyperglycemia, E78.2 - Mixed hyperlipidemia, I10 - Essential (primary) hypertension Microalbumin, Random (w Creat) 06/29/23. - Type 2 diabetes mellitus with hyperglycemia, E78.2 - Mixed hyperlipidemia, I10 - Essential (primary) hypertension Vitamin D 25-OH Total 06/29/23. - Type 2 diabetes mellitus with hyperglycemia, E78.2 - Mixed hyperlipidemia, I10 - Essential (primary) hypertension Coding Level of Care Code Est Pt Level 4 (59523) Diagnoses Type 2 diabetes mellitus with hyperglycemia, without long-term current use of insulin Diabetes mellitus type: type 2 Mixed dyslipidemia E78.2 Essential hypertension I10
[2023-04-19 16:15] VITALS: BP 140/88; PULSE 99; O2SAT 97; BMI 28.2
== END 2023-04-19 16:53 | disposition home or self-care (01) ==
PROVIDERS: PCP Internal Medicine; Visit Provider Internal Medicine
DX: E11.65 Type 2 diabetes mellitus with hyperglycemia (principal); E78.2 Mixed hyperlipidemia; I10 Essential (primary) hypertension
CPT/HCPCS: 99214

== ENCOUNTER 2023-08-14 07:33 | Outpatient (REF) | payer BC, SELFPAY ==
[2023-08-14 11:04] LABS: Creatinine Urine 87.19 mg/dL; Microalbum/Creatinine Ratio Ur 11.4 ug/mg cr (<30)
[2023-08-14 11:06] LABS: Estimated Average Glucose 174 mg/dL; Hemoglobin A1c % 7.7 % (<6.0)
[2023-08-14 11:15] LABS: Alanine Aminotransferase 23 U/L (0-40); Albumin Level 3.8 g/dL (3.5-5.0); Alkaline Phosphatase 71 U/L (39-117); Anion Gap 14 (12-20); Aspartate Amino Transferase 14 U/L (5-37); Bilirubin Total 0.3 mg/dL (0.0-1.0); Blood Urea Nitrogen 20 mg/dL (9-16); Calcium 9.5 mg/dL (8.4-10.2); Carbon Dioxide 23 mmol/L (22-29); Chloride 106 mmol/L (96-108); Cholesterol 122 mg/dL (<200); Estimated Glomerular Filt Rate > 60; Glucose Fasting 146 mg/dL (60-99); HDL Cholesterol 32 mg/dL (>40); LDL Cholesterol Calculated 67 mg/dL (<100); Potassium 3.9 mmol/L (3.3-5.1); Sodium 139 mmol/L (135-145); Total Protein 7.5 g/dL (6.5-8.0); Triglycerides 117 mg/dL (<150); Vitamin D 25-OH Total 13.4 ng/mL (>30)
== END 2023-08-14 07:34 | disposition home or self-care (01) ==
LOC: HO.HMGCLDS 07:33
PROVIDERS: PCP Internal Medicine; Visit Provider Internal Medicine
DX: E11.65 Type 2 diabetes mellitus with hyperglycemia (principal); E78.5 Hyperlipidemia, unspecified; I10 Essential (primary) hypertension
CPT/HCPCS: 36415; 80053; 80061; 82043; 82306; 82570; 83036

== ENCOUNTER 2023-08-21 09:10 | Outpatient (AMB) | payer BC, SELFPAY ==
--- NOTE | 2023-08-21 09:35 | A.OFFPC_ITS ---
Vital Signs 08/21/23 09:45 Height 5 ft 5 in Weight 161 lb BMI 26.8 BP 120/74 Blood Pressure Location Lt brachial Position Sitting Pulse 100 Pulse Source Pulse Oximeter Pulse Oximetry (%) 97 Oxygen Delivery Method Room Air Intake Visit Reasons: 3 month ~ R/S from 07/18 Intake Note: Pt is here today for 3 months follow up visit. Allergies barium sulfate Allergy (Intermediate, Verified 08/21/23 10:06) rash varenicline Allergy (Intermediate, Verified 08/21/23 10:06) rash Medication List - Last Reconciled 08/21/23 by Dianna Huitron MD bupropion HCl SR 150 mg PO QAM carvedilol 3.125 mg PO BID empagliflozin (Jardiance) 25 mg PO QAM fluticasone propionate 50 mcg/actuation (Allergy Relief (fluticasone)) 1 spray intranasal BID lisinopril 20 mg PO DAILY loratadine (Allergy Relief (loratadine)) 10 mg PO DAILY PRN metformin 1,000 mg PO BID 90 days omeprazole 10 mg PO DAILY rosuvastatin 5 mg PO 3XW 90 days Tobacco use date assessed: 08/21/23 Fall risk assessment: No Falls in past year Last assessed Fall Risk: 08/21/23 Dental Screening Dental Screen Date: 08/21/23 Did you have a dental visit in the last 12 months?: Yes Did you have a dental problem in the last 6 months where you did not have access to dental care?: No Was dental information given to patient?: Patient has dentist HPI 3 month ~ R/S from 07/18 HPI Details 68-year-old male with diabetes mellitus, hyperlipidemia, hypertension , here today for his follow-up. He has been taking his medications as directed, but stopped taking ozempic 1-1/2 weeks ago, as started having abdominal bloating accompanied by some nausea . Feels better at present time. Diabetes mellitus control is better after starting Ozempic proximally 2 and 1/2 months ago, with last hemoglobin A1c at 7.7%. Urine microalbumin is within normal, fasting lipids were within normal limits as well. Blood pressure is well controlled on present medication. [facility] Medical History (Updated 08/21/23 @ 10:13 by Dianna Huitron MD) Vitamin D deficiency Rash and nonspecific skin eruption RBBB (right bundle branch block) Sinus tachycardia by electrocardiogram Mixed dyslipidemia Hx of skin cancer, basal cell Epiploic appendagitis Seasonal allergic rhinitis Hypertriglyceridemia Family history of prostate cancer Prostate cancer screening Essential hypertension Diabetes mellitus with hyperglycemia, without long-term current use of insulin Surgical History History of esophagogastroduodenoscopy (EGD) History of inguinal hernia repair History of colonoscopy H/O arthroscopy of shoulder History of basal cell carcinoma excision History of tonsillectomy Family History Father Stroke Aneurysm Cancer of prostate Mother Asbestos exposure Lung cancer Smoker Maternal Grandfather No problems noted. Maternal Grandmother No problems noted. Paternal Grandfather No problems noted. Paternal Grandmother No problems noted. Maternal Aunt Diabetes mellitus Sister No problems noted. Social History Housing: House Alcohol intake: current Alcohol intake frequency: a few times a week Alcohol type: wine Patient Tobacco Use Status: Former Tobacco user Quit Date: 10/2021 Tobacco use type: Cigarette e-Cigarette/Vaping Use: Never Used Substance Use Type: Marijuana service: No Current occupational status: employed Cognitive needs: No Hearing needs: No Vision needs: Yes Questionnaire PHQ-9 Over the last 2 weeks, how often have you been bothered by any of the following problems? 1. Little interest or pleasure in doing things: not at all 2. Feeling down, depressed, or hopeless: not at all 3. Trouble falling or staying asleep, or sleeping too much: not at all 4. Feeling tired or having little energy: not at all 5. Poor appetite or overeating: not at all 6. Feeling bad about yourself - or that you are a failure or have let yourself or your family down: not at all 7. Trouble concentrating on things, such as reading the newspaper or watching television: not at all 8. Moving or speaking so slowly that other people could have noticed. Or the opposite - being so fidgety or restless that you have been moving around a lot more than usual: not at all 9. Thoughts that you would be better off or of hurting yourself in some way: not at all Total score: 0 Depression Screening Interpretation: Negative Depression Screening Done: Yes 81267 - PHQ-9 Billing: Yes Source: Developed by Drs. Deven Carrizales, Nela Rowe, Deandre Phipps and colleagues, with an educational emili from [employer]. Thrive Questionnaire Date Thrive assessed: 08/21/23 I am a: Patient What is your living situation today?: I have a steady place to live Within the past 12 months, did the food you bought not last and you didn't have the money to get more?: Never true Within the past 12 months, did you worry whether your food would run out before you got money to buy more?: Never true Do you have trouble paying for medicines?: No Do you have trouble getting transportation to medical appointments?: No Do you have trouble paying your heating and electricity bill?: No Do you have trouble taking care of your child, family member or friend?: No Do you have trouble with day-to-day activities such as bathing, preparing meals, shopping, managing finances, etc.?: No Are you currently unemployed and looking for a job?: No Are you interested in more education?: No Please select the resources that you would like help with: None THRIVE Score: 0 AUDIT C Alcohol Use Questionnaire (AUDIT-C) 1. How often do you have a drink containing alcohol?: Monthly or less 2. How many drinks containing alcohol do you have on a typical day when you are drinking?: 1 or 2 3. How often do you have six or more drinks on one occasion?: Never Total Score: 1 JE-7 AMB Questionnaire JE-7 Date JE - 7 assessed: 08/21/23 Feeling nervous, anxious, or on edge: 0 = Not at all Not being able to stop or control worryin = Not at all Worrying too much about different things: 0 = Not at all Trouble relaxin = Not at all Being so restless that it is hard to sit still: 0 = Not at all Becoming easily annoyed or irritable: 0 = Not at all Feeling afraid as if something awful might happen: 0 = Not at all Total JE-7 score (0-4 normal; 5-9 mild; 10-14 moderate; 15-21 severe): 0 Source: Developed by Drs. Deven Carrizales, Nela Rowe, Deandre Phipps and colleagues, with an educational emili from [employer]. JE-7 Assessment Billing JE-7 Assessment Tool: JE-7 Assessment 06942 Review of Systems Const Reports no additional complaints Eyes Details: Sees Dr. Bullard Reports no additional complaints ENT Denies dizziness Card Denies chest pain at rest, Denies chest pain with activity, Denies pedal edema, Denies edema, Denies lightheadedness, Denies palpitations, Denies dyspnea and Denies dyspnea on exertion Resp Denies cough, Denies dyspnea and Denies dyspnea on exertion GI Reports no additional complaints Reports no additional complaints Musc Denies abnormal gait, Denies muscle cramps, Denies muscle weakness, Denies numbness, Denies stiffness and Denies tingling Neuro Denies abnormal gait, Denies dizziness, Denies numbness and Denies tingling Psych Reports no additional complaints Endo Denies palpitations Raghavendra/Lymph Reports no additional complaints Aller/Immun Reports no additional complaints Physical exam (Primary Care) Vital Signs: Last Vital Signs Pulse 100 08/21/23 09:45 BP 120/74 08/21/23 09:45 Pulse Ox 97 08/21/23 09:45 Oxygen Delivery Method Room Air 08/21/23 09:45 BMI result Body Mass Index 26.8 Tobacco/Smoking Status: Tobacco use Status Tobacco use date assessed 08/21/23 08/21/23 09:49 Patient Tobacco Use Status Former Tobacco user 08/21/23 09:49 Tobacco use type Cigarette 08/21/23 09:35 e-Cigarette/Vaping Use Never Used 08/21/23 09:35 PHQ-9: PHQ-9 Score PHQ-9: Total score 0 08/21/23 10:18 Depression Screening Interpretation: Negative Thrive Assessment: Date of Thrive Assessment Date Thrive assessed 08/21/23 08/21/23 09:50 Const General: no acute distress Nutritional Appearance: overweight Orientation/consciousness: patient oriented x3 HENMT Head: Yes normal to inspection Ears: external ears normal, TM normal on the right and EAC's normal General nose exam: Normal external nose present Mouth: Normal oral and palatal mucosa present, oropharynx normal and moist mucous membranes Eyes General: appearance normal, both eyes and all related structures Neck Neck: Yes supple Resp Effort & Inspection: normal respiratory effort Auscultation: clear to auscultation bilaterally Cardio Rhythm: regular rhythm Heart sounds: S1 normal heart sound present and S2 normal heart sound present GI Inspection: Yes normal to inspection General: Yes no CVA tenderness Male General Exam: Yes normal external exam Back/Spine/Pelvis Back: no CVA tenderness and No back tenderness Skin General skin exam: no rashes or lesions noted Neuro General: patient oriented x3 Extrem General: Yes full ROM, Yes normal exam except as noted, Yes no joint enlargement, Yes no clubbing, cyanosis or edema, Yes no calf tenderness and Yes normal gait Psych Appearance: grossly normal and well kempt Mental Status: mental status grossly normal Speech and movement: Normal speech and movement present Affect: normal affect Results Reviewed Results Reviewed: Name: Fan Lorenzo Jr Age/Sex: 68/M : 1955 Unit#: [id number] Attend Dr: Dianna Huitron MD Re08/14/23 Status: DEP REF Location: [facility] Disch: SPEC : [id number] AYSHA: 08/14/23 STATUS: COMP REQ : [id number] RECD: 08/14/[address]: Dianna Huitron MD COMP: 08/14/23 ENTERED: 08/14/[address] [facility] [address]: ORDERED: CMP Fast, Lipid Panel, Vitamin D 25-OH Test Result Flag Reference Sodium 139 135-145 mmol/L Potassium 3.9 3.3-5.1 mmol/L CL 106 96-108 mmol/L CO2 23 22-29 mmol/L Gap 14 12-20 BUN 20 H 9-16 mg/dL Creat 0.93 0.5-1.4 mg/dL EGFR > 60 NOTE: For -Irish individuals, multiply the result by 1.210. Chronic Kidney Disease: Estimated GFR < 60 mL/min/1.73m2 Severe Kidney Disease: Estimated GFR < 15 mL/min/1.73m2 FBS 146 H 60-99 mg/dL A fasting glucose of 126 mg/dl or greater on more than one occasion is considered diagnostic of diabetes. CA 9.5 8.4-10.2 mg/dL Total Bili 0.3 0.0-1.0 mg/dL AST (GOT) 14 5-37 U/L ALT (GPT) 23 0-40 U/L Protein, Total 7.5 6.5-8.0 g/dL Alb 3.8 3.5-5.0 g/dL Triglyceride 117 <150 mg/dL Desirable Triglyceride: less than 150 mg/dL Borderline High Triglyceride 150-199 mg/dL High Triglyceride: 200-499 mg/dL Very High Triglyceride: greater than or equal to 5OO mg/dL Cholesterol 122 <200 mg/dL Desirable Cholesterol: less than 200 mg/dL Borderline High Cholesterol: 200-239 mg/dL High Cholesterol: greater than 239 mg/dL LDL Calculated 67 <100 mg/dL Desirable LDL: less than 100 mg/dL Near Optimal/Above Optimal LDL: 110-129 mg/dL Borderline High LDL: 130-159 mg/dL High LDL: 160-189 mg/dL Very High LDL: greater than or equal to 190 mg/dL HDL 32 L >40 mg/dL Desirable HDL: greater than 40 mg/dL Note: This HDL assay may give artificially low results in patients with liver disease. Alk Phos 71 39-117 U/L Vit D 25-OH Tot 13.4 L >30 ng/mL Health Based Reference Values* < 20 ng/mL Deficient 20-30 ng/mL Insufficient > 30 ng/mL Sufficient Laboratory Tests 08/14/23 07:37 Estimat Average Glucose 174 Hemoglobin A1c % 7.7 H Urine Creatinine 87.19 Urine Microalbumin 10.0 Microalb/Creat Ratio 11.4 Assessment and Plan Assessment & Plan (1) Vitamin D deficiency: Code(s): E55.9 - Vitamin D deficiency, unspecified Plan: Started on cholecalciferol 55538 units per capsule to take once a week for the next 3 months. (2) Diabetes mellitus with hyperglycemia, without long-term current use of insulin: Code(s): E11.65 - Type 2 diabetes mellitus with hyperglycemia Qualifiers: Diabetes mellitus type: type 2 Qualified Code(s): E11.65 - Type 2 diabetes mellitus with hyperglycemia Plan: Diabetes mellitus controlled better at 7.7% hemoglobin A1c, but still not at goal . Continue on Jardiance and metformin at the same dose, and advised to restart back on Ozempic 0.25 mg once a week. Reinforced importance of following recommended diet and getting regular exercise will see him back again for follow-up in 3 months after fasting labs (3) Mixed dyslipidemia: Code(s): E78.2 - Mixed hyperlipidemia Plan: Reviewed recent fasting lipid profile with patient with levels within normal limits . Continue rosuvastatin 5 mg taken 3 times a week , in addition to adherence to low-cholesterol diet and regular exercise, at least 30 minutes 3 to 4 times a week. Advised patient to make healthy food choices, eat more fruits, vegetables, whole grains, wild caught fish and low-fat dairy. Limit amount of meat and fried or fatty food products, as well as processed foods and fast foods. (4) Essential hypertension: Code(s): I10 - Essential (primary) hypertension Plan: Blood pressure at goal of less than 130/80. Continue with current medication. Reinforced importance of following a low sodium diet, getting regular exercise, and lowering stress levels. Medications: New cholecalciferol (vitamin D3) 1,250 mcg PO QWEEK 13 caps 0RF 3 months E55.9 - Vitamin D deficiency, unspecified Changed From empagliflozin (Jardiance) 25 mg PO QAM 90 tabs 1RF E11.65 - Type 2 diabetes mellitus with hyperglycemia To Jardiance (empagliflozin) 25 mg PO QAM 90 tabs 3RF NS E11.65 - Type 2 diabetes mellitus with hyperglycemia Coding Level of Care Code Est Pt Level 4 (49902) Diagnoses Vitamin D deficiency E55.9 Type 2 diabetes mellitus with hyperglycemia, without long-term current use of insulin E11.65 Diabetes mellitus type: type 2 Mixed dyslipidemia E78.2 Essential hypertension I10 Additional Codes JE-7 Assessment Billing - JE-7 Assessment Tool: JE-7 Assessment 94874 ([id number])
[2023-08-21 09:45] VITALS: BP 120/74; PULSE 100; O2SAT 97; BMI 26.8
== END 2023-08-21 11:05 | disposition home or self-care (01) ==
PROVIDERS: PCP Internal Medicine; Visit Provider Internal Medicine
DX: E55.9 Vitamin D deficiency, unspecified (principal); E11.65 Type 2 diabetes mellitus with hyperglycemia; E78.2 Mixed hyperlipidemia; I10 Essential (primary) hypertension
CPT/HCPCS: 99214

== ENCOUNTER 2023-10-23 12:31 | Outpatient (REF) | payer BC, SELFPAY ==
--- NOTE | ~2023-10-23 | US_ITS ---
EXAMINATION: ULTRASOUND RIGHT INGUINAL REGION CLINICAL INFORMATION: Pain; question hernia. COMPARISON: None available. TECHNIQUE: Using a linear transducer with grayscale and color modalities, ultrasound examination is performed of the right inguinal region. Valsalva maneuver is performed. FINDINGS: In the right inguinal region, a fat-containing hernia defect is seen with neck measuring 2.3 x 4.1 cm. No mass or fluid collection is seen. There is no lymphadenopathy. US/US pelvic limited IMPRESSION: A fat-containing right inguinal hernia is seen, with dimensions as detailed above.
== END 2023-10-23 12:32 | disposition home or self-care (01) ==
LOC: HO.HMGCX 12:31
PROVIDERS: PCP Internal Medicine; Visit Provider Internal Medicine
DX: R19.09 Other intra-abdominal and pelvic swelling, mass and lump (principal)
CPT/HCPCS: 76857

== ENCOUNTER 2023-11-23 09:43 | Outpatient (AMB) | payer BC, SELFPAY ==
--- NOTE | 2023-11-23 09:44 | A.OFFVIS_ITS ---
Vital Signs 3 11/23/23 09:56 Height 5 ft 5 in Weight 169 lb BMI 28.1 BP 142/94 H Blood Pressure Location Lt brachial Position Sitting Pulse 101 H Intake Visit Reasons: Unilateral inguinal hernia Intake Note: Patient is seen in office for evaluation and treatment of a right inguinal hernia. 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 Warden Required: No Accompanied by: Self / Same As Patient Allergies barium sulfate Allergy (Intermediate, Verified 11/23/23 09:52) rash varenicline Allergy (Intermediate, Verified 11/23/23 09:52) rash Medication List - Last Reconciled 11/23/23 by John Streeter MD bupropion HCl SR 150 mg PO QAM carvedilol 3.125 mg PO BID 90 days fluticasone propionate 50 mcg/actuation (Allergy Relief (fluticasone)) 1 spray intranasal BID Jardiance (empagliflozin) 25 mg PO QAM NS lisinopril 20 mg PO DAILY loratadine (Allergy Relief (loratadine)) 10 mg PO DAILY PRN metformin 1,000 mg PO BID 90 days omeprazole 10 mg PO DAILY rosuvastatin 5 mg PO 3XW 90 days HPI Comments Details: 68-year-old male patient presenting with complaints of a right inguinal hernia. He 1st noted a proximally 3-4 months ago with no particular inciting event. The lump increases in size with sneezing and coughing but reduces spontaneously. He denies nausea, vomiting, fever, chills, diarrhea or constipation. He reports a previous history of a left inguinal hernia repaired by Dr. Thornton laparoscopically. He denies any symptoms in the left groin. [facility] Medical History Right inguinal hernia Vitamin D deficiency Rash and nonspecific skin eruption RBBB (right bundle branch block) Sinus tachycardia by electrocardiogram Mixed dyslipidemia Hx of skin cancer, basal cell Epiploic appendagitis Seasonal allergic rhinitis Hypertriglyceridemia Family history of prostate cancer Prostate cancer screening Essential hypertension Diabetes mellitus with hyperglycemia, without long-term current use of insulin Surgical History History of esophagogastroduodenoscopy (EGD) History of inguinal hernia repair History of colonoscopy H/O arthroscopy of shoulder History of basal cell carcinoma excision History of tonsillectomy Family History Father Stroke Aneurysm Cancer of prostate Mother Asbestos exposure Lung cancer Smoker Maternal Grandfather No problems noted. Maternal Grandmother No problems noted. Paternal Grandfather No problems noted. Paternal Grandmother No problems noted. Maternal Aunt Diabetes mellitus Sister No problems noted. Social History Housing: House Alcohol intake: current Alcohol intake frequency: a few times a week Alcohol type: wine Patient Tobacco Use Status: Former Tobacco user Tobacco use type: Cigarette e-Cigarette/Vaping Use: Never Used Substance Use Type: Marijuana service: No Current occupational status: employed Cognitive needs: No Hearing needs: No Vision needs: Yes Review of Systems Const All systems reviewed & are unremarkable except as noted in HPI and below Denies chills, Denies fever(s), Denies headache(s), Denies poor appetite and Denies weakness ENT Denies headache(s) Card Denies chest pain, Denies irregular heart rhythm, Denies palpitations and Denies dyspnea Resp Denies cough, Denies excessive phlegm production and Denies dyspnea GI Denies abdominal pain, Denies bloating, Denies change in bowel habits, Denies constipation, Denies heartburn, Denies diarrhea, Denies nausea and Denies vomiting Denies difficulty urinating and Denies urinary frequency Musc Denies back pain, Denies muscle weakness and Denies numbness Skin/Breast Denies changing lesions and Denies unusual bruising Neuro Denies headache(s), Denies numbness, Denies paresthesias and Denies weakness Psych Denies anxiety and Denies depression Endo Denies palpitations Raghavendra/Lymph Denies lymphadenopathy Physical Exam Vital Signs: Last Vital Signs Pulse 101 H 11/23/23 09:56 BP 142/94 H 11/23/23 09:56 BMI result Body Mass Index 28.1 Const General: cooperative and no acute distress Nutritional Appearance: well nourished Orientation/consciousness: patient oriented x3 Limitations: no limitations HEENT Head: Yes normocephalic and Yes atraumatic Ears: hearing grossly normal bilaterally Resp Effort & Inspection: normal respiratory effort, no audible wheezes, no cough and no respiratory distress Cardio Jugular venous distension: no JVD GI Other: Soft, nondistended, easily identified right inguinal hernia in the standing position which increases in size with Valsalva maneuvers but reduces with light pressure. No palpable hernia in the left groin. Small umbilical hernia, easily reducible. Inspection: Yes normal to inspection Abdomen image: 2 1. Reducible right inguinal hernia Skin Other: Warm, dry, no rash Neuro General: patient oriented x3 Extrem General: Yes no clubbing, cyanosis or edema Assessment & Plan Assessment & Plan (1) Right inguinal hernia: Code(s): K40.90 - Unilateral inguinal hernia, without obstruction or gangrene, not specified as recurrent Category: Medical Plan 68-year-old male patient presenting with a new onset right inguinal hernia. On examination he has an easily reducible right inguinal hernia which increases with Valsalva maneuvers. No left inguinal hernia could be identified. I recommended an elective repair of this right inguinal hernia with mesh. After discussion of the procedure, risks, and alternatives, he consents to repair of right inguinal hernia with mesh. We discussed holding his Ozempic for 1 week prior to surgery and Jardiance for 3 days prior to the procedure. He expressed understanding and agrees with the plan. Coding Level of Care Code New Pt Level 4 (48657) Diagnoses Right inguinal hernia K40.90
[2023-11-23 09:56] VITALS: BP 142/94; PULSE 101; BMI 28.1
== END 2023-11-23 10:11 | disposition home or self-care (01) ==
PROVIDERS: PCP Internal Medicine; Referring Provider Internal Medicine; Visit Provider Surgery
DX: K40.90 Unilateral inguinal hernia, without obstruction or gangrene, not specified as recurrent (principal)
CPT/HCPCS: 99204

== ENCOUNTER → 2023-11-23 09:43 | Outpatient (BNVA) | payer BC, SELFPAY | PROVIDERS: PCP Internal Medicine; Referring Provider Internal Medicine; Visit Provider Surgery ==

== ENCOUNTER → 2023-12-12 13:24 | Outpatient (BNV) | payer BC, SELFPAY | PROVIDERS: PCP Internal Medicine; Visit Provider Internal Medicine | DX: R94.31 Abnormal electrocardiogram [ECG] [EKG] (principal) | CPT/HCPCS: 93010 ==

== ENCOUNTER 2023-12-19 07:13 | Day surgery (SDC) | payer BC, SELFPAY ==
[2023-12-11 14:28] VITALS: BMI 28.1
--- NOTE | 2023-12-12 | ECG_ITS ---
Test Reason : preop Blood Pressure : / mmHG Vent. Rate : 092 BPM Atrial Rate : 092 BPM P-R Int : 178 ms QRS Dur : 148 ms QT Int : 398 ms P-R-T Axes : 025 255 009 degrees QTc Int : 492 ms Sinus rhythm with occasional Premature ventricular complexes Possible Left atrial enlargement Right bundle branch block Possible Lateral infarct (cited on or before 16-NOV-2021) Abnormal ECG When compared with ECG of 16-NOV-2021 19:55, Premature ventricular complexes are now Present Referred By: Yi Shannon Electronically Signed By:PAULINE DELGADILLO
[2023-12-12 12:51] VITALS: BMI 27.3
[2023-12-12 12:54] VITALS: BP 132/79; PULSE 103; RESP 16; O2SAT 97
--- NOTE | 2023-12-12 13:11 | P.CONAN_ITS ---
Documented by User: Yi Shannon NP 12/13/23 09:06 HPI - Anesthesia Eval Consult details Narrative: 68yo M for Right Hernia Inguinal with mesh, 12/19/23 No recent illness No CP/SOB with activity DM: FBS ~ 180 RBBB, Sinus Tach: Follows [facility] [place] cardiology yearly. Last office visit 01/2023. Anesthesia Pre-Procedure Meds Is the patient on any of the following meds?: GLP1/DPP4 and SGLT2 Inhib PMFSH Active Problems Active Problems: All Active Problems Abnormal echocardiogram findings without diagnosis (Acute) Sinus tachycardia (Acute) GERD (gastroesophageal reflux disease) (Acute) Right inguinal hernia (Acute) Vitamin D deficiency (Acute) Diabetes mellitus with hyperglycemia, without long-term current use of insulin (Acute) RBBB (right bundle branch block) (Acute) Mixed dyslipidemia (Acute) Seasonal allergic rhinitis (Acute) Family history of prostate cancer (Acute) Essential hypertension (Acute) Past Medical History Medical History (Updated 12/12/23 @ 13:04 by Kristin Kamara, RN) Hx of syncope (~2021) Anxiety Right inguinal hernia Vitamin D deficiency Rash and nonspecific skin eruption RBBB (right bundle branch block) Sinus tachycardia by electrocardiogram Mixed dyslipidemia Hx of skin cancer, basal cell Epiploic appendagitis Seasonal allergic rhinitis Hypertriglyceridemia Family history of prostate cancer Prostate cancer screening Essential hypertension Diabetes mellitus with hyperglycemia, without long-term current use of insulin Family History Family History Father Stroke Aneurysm Cancer of prostate Mother Asbestos exposure Lung cancer Smoker Maternal Grandfather No problems noted. Maternal Grandmother No problems noted. Paternal Grandfather No problems noted. Paternal Grandmother No problems noted. Maternal Aunt Diabetes mellitus Sister No problems noted. Family history of problems with anesthesia: No Surgical History Surgical History History of esophagogastroduodenoscopy (EGD) History of inguinal hernia repair History of colonoscopy H/O arthroscopy of shoulder History of basal cell carcinoma excision History of tonsillectomy History of Problems with Anesthesia: No Social History Social History (Updated 12/12/23 @ 13:02 by Kristin Kamara, RN) Household Members: Significant Other Housing: House Are you a primary patient centered care specialist to a significant other at home: No Do you presently have visiting nurse or other home services: No Alcohol intake: current Alcohol intake frequency: a few times a week Alcohol type: wine Patient Tobacco Use Status: Former Tobacco user Tobacco use type: Cigarette Smoked in Last 30 Days: No e-Cigarette/Vaping Use: Never Used Use of substances other than those prescribed or required for medical reasons: Yes Substance Use Type: Marijuana Substance Use Type Other:: marijuana edible Substance Use Frequency: Weekly Have you been hit, kicked, punched, or otherwise hurt by someone within the past year? If so, by whom?: No Are you DNR?: No Advance Directives: No Advance Directives Information Provided: Yes Advance Directives on File: No Recently lost weight without trying: No Nutrition Risks: No Nutritional Risk Poor oral hygiene: No service: No Current occupational status: employed Cognitive needs: No Hearing needs: No Vision needs: Yes Meds Allergies Allergy/AdvReac Type Severity Reaction Status Date / Time barium sulfate Allergy Intermediate rash Verified 12/19/23 07:40 [email or web address] Allergy Intermediate rash Verified 12/19/23 07:40 Home Medications ?Medication ?Instructions ?Recorded ?Confirmed ?Last Taken ?Type semaglutide 0.25 mg or 0.5 mg (2 0.25 mg subcut QWEEK 12/11/23 12/12/23 12/11/23 History mg/3 mL) subcutaneous pen injector (Ozempic) bupropion HCl 150 mg tablet,12 hr 150 mg PO Q OTHER DAY 12/12/23 12/12/23 Unknown History sustained-release Exam Height,Weight and Vital Signs: Height 5 ft 5 in Weight 74.389 kg Last Vital Signs Pulse 103 H 12/12/23 12:54 Resp 16 12/12/23 12:54 BP 132/79 12/12/23 12:54 Pulse Ox 97 12/12/23 12:54 O2 Del Method Room Air 12/12/23 12:54 Pertinent Lab Results Pertinent Lab Results: Lab Results 12/12/23 Range/Units 13:37 WBC 14.0 H (4.8-10.8) X10*3/uL RBC 5.98 H (4.60-5.80) X10*6/uL Hgb 17.5 (14.0-18.0) g/dl Hct 52.4 H (42.0-52.0) % MCV 87.6 (80.0-98.0) fL MCH 29.3 (27.0-33.0) pg MCHC 33.4 (31.0-36.0) g/dl RDW 14.2 (11.0-16.0) % Plt Count 297 (160-400) X10*3/uL MPV 11.2 (9.4-12.4) fL Absolute Nucleated RBC 0.000 (0.0-0.012) X10*3/uL Nucleated RBC % (auto) 0.0 (0.0-0.2) /100WBC Sodium 138 (135-145) mmol/L Potassium 4.6 (3.3-5.1) mmol/L Chloride 105 (96-108) mmol/L Carbon Dioxide 21 L (22-29) mmol/L Anion Gap 17 (12-20) BUN 26 H (9-16) mg/dL Creatinine 1.13 (0.5-1.4) mg/dL Estim Creat Clear Calc 59.8 Estimated GFR > 60 Random Glucose 167 H (60-115) mg/dL Estimat Average Glucose 180 mg/dL Hemoglobin A1c % 7.9 H (<6.0) % Calcium 10.3 H D (8.4-10.2) mg/dL Narrative Narrative: EKG 11/2023 Vent. Rate : 092 BPM Atrial Rate : 092 BPM P-R Int : 178 ms QRS Dur : 148 ms QT Int : 398 ms P-R-T Axes : 025 255 009 degrees QTc Int : 492 ms Sinus rhythm with occasional Premature ventricular complexes Possible Left atrial enlargement Right bundle branch block Possible Lateral infarct (cited on or before 16-NOV-2021) Abnormal ECG When compared with ECG of 16-NOV-2021 19:55, Premature ventricular complexes are now Present ECHO 2021 Conclusions: - Normal left ventricular cavity size. There is normal left ventricular wall thickness. The left ventricular systolic function is low normal. The visually estimated ejection fraction is between 50-55%. - E/E prime ratio is between 8 and 15 consistent with indeterminate filling pressures. - The basal inferior segment is akinetic. - Normal right ventricular cavity size and systolic function. NM cardiolite stress test 2021 IMPRESSION: 1. Myocardial perfusion imaging study shows normal myocardial perfusion. 2. Gated LVEF is 60% during stress and 70% during rest. 3. Transient ischemic dilatation not present. Airway Mallampati Class: II TM Dist: >3cm Neck ROM: Full Loose/Missing/Broken Teeth: No Heart: RRR Lungs: CTAB Assessment and Plan Assessment Anesthesia Assessment: Anesthesia Plan Discussed and PAT Visit Final Anesthetic Review Family History of Problems with Anesthesia: No History of Problems with Anesthesia: No Documented by User: Emmie Torres MD 12/19/23 08:55 [facility] Past Medical History Medical History (Updated 12/12/23 @ 13:04 by Kristin Kamara, RN) Hx of syncope (~2021) Anxiety Right inguinal hernia Vitamin D deficiency Rash and nonspecific skin eruption RBBB (right bundle branch block) Sinus tachycardia by electrocardiogram Mixed dyslipidemia Hx of skin cancer, basal cell Epiploic appendagitis Seasonal allergic rhinitis Hypertriglyceridemia Family history of prostate cancer Prostate cancer screening Essential hypertension Diabetes mellitus with hyperglycemia, without long-term current use of insulin Family History Family History Father Stroke Aneurysm Cancer of prostate Mother Asbestos exposure Lung cancer Smoker Maternal Grandfather No problems noted. Maternal Grandmother No problems noted. Paternal Grandfather No problems noted. Paternal Grandmother No problems noted. Maternal Aunt Diabetes mellitus Sister No problems noted. Surgical History Surgical History History of esophagogastroduodenoscopy (EGD) History of inguinal hernia repair History of colonoscopy H/O arthroscopy of shoulder History of basal cell carcinoma excision History of tonsillectomy Social History Social History (Updated 12/12/23 @ 13:02 by Kristin Kamara, CLYDE) Household Members: Significant Other Housing: House Are you a primary patient centered care specialist to a significant other at home: No Do you presently have visiting nurse or other home services: No Alcohol intake: current Alcohol intake frequency: a few times a week Alcohol type: wine Patient Tobacco Use Status: Former Tobacco user Tobacco use type: Cigarette Smoked in Last 30 Days: No e-Cigarette/Vaping Use: Never Used Use of substances other than those prescribed or required for medical reasons: Yes Substance Use Type: Marijuana Substance Use Type Other:: marijuana edible Substance Use Frequency: Weekly Have you been hit, kicked, punched, or otherwise hurt by someone within the past year? If so, by whom?: No Are you DNR?: No Advance Directives: No Advance Directives Information Provided: Yes Advance Directives on File: No Recently lost weight without trying: No Nutrition Risks: No Nutritional Risk Poor oral hygiene: No service: No Current occupational status: employed Cognitive needs: No Hearing needs: No Vision needs: Yes Meds Allergies Allergy/AdvReac Type Severity Reaction Status Date / Time barium sulfate Allergy Intermediate rash Verified 12/19/23 07:40 [email or web address] Allergy Intermediate rash Verified 12/19/23 07:40 Home Medications ?Medication ?Instructions ?Recorded ?Confirmed ?Last Taken ?Type semaglutide 0.25 mg or 0.5 mg (2 0.25 mg subcut QWEEK 12/11/23 12/12/23 12/11/23 History mg/3 mL) subcutaneous pen injector (Ozempic) bupropion HCl 150 mg tablet,12 hr 150 mg PO Q OTHER DAY 12/12/23 12/12/23 Unknown History sustained-release Assessment and Plan Final Anesthetic Review NPO: Yes ASA Class: III Final Preanesthetic Review: No Changes in Pt Med Stat, Meds/Allgs Chart Reviewed and Consent Obtained/Reviewed Patient Risk: Low Procedure Risk: Low Anesthetic Plan Anesthetic Plan: GA Disposition: Standard PACU
[2023-12-12 14:00] LABS: Hematocrit 52.4 % (42.0-52.0); Hemoglobin 17.5 g/dl (14.0-18.0); Mean Corpuscular HGB Conc 33.4 g/dl (31.0-36.0); Mean Corpuscular Hemoglobin 29.3 pg (27.0-33.0); Mean Corpuscular Volume 87.6 fL (80.0-98.0); Mean Platelet Volume 11.2 fL (9.4-12.4); Platelet Count 297 X10*3/uL (160-400); Red Blood Count 5.98 X10*6/uL (4.60-5.80); Red Cell Distribution Width 14.2 % (11.0-16.0)
[2023-12-12 14:16] LABS: Estimated Average Glucose 180 mg/dL; Hemoglobin A1c % 7.9 % (<6.0)
[2023-12-12 14:28] LABS: Anion Gap 17 (12-20); Blood Urea Nitrogen 26 mg/dL (9-16); Calcium 10.3 mg/dL (8.4-10.2); Carbon Dioxide 21 mmol/L (22-29); Chloride 105 mmol/L (96-108); Creatinine Clr Calc Pharmacy 59.8; Estimated Glomerular Filt Rate > 60; Glucose Random 167 mg/dL (60-115); Potassium 4.6 mmol/L (3.3-5.1); Sodium 138 mmol/L (135-145)
[2023-12-19 07:36] VITALS: BMI 27.1
[2023-12-19 07:54] LABS: Glucose, Whole Blood 242 mg/dL (60-115)
--- NOTE | 2023-12-19 09:10 | MHC.SHP ---
Pre-Procedural Eval Section A - 24 Hr Update-Section A only Date of Service: 12/19/23 The patient is an INPATIENT: No Changes since office visit: Yes Patient answered all questions; No Cold of Flu in the past 2 weeks, No New Medical Problems and No Changes in Medication The patient has been examined within 24 hours of the surgical procedure. The History & Physical has been completed within 30 days and I have reviewed it.: Yes Section B - Complete if H&P > 30 days Chief Complaint: Unilateral inguinal hernia, without obstruction Allergies: Allergies Allergy/AdvReac Type Severity Reaction Status Date / Time barium sulfate Allergy Intermediate rash Verified 12/19/23 07:40 [email or web address] Allergy Intermediate rash Verified 12/19/23 07:40 Plan Diagnosis/Plan: Unchanged I have reviewed the history and physical and performed a pertinent physical examination on my patient. No changes have occurred unless specified. Time Spent With Patient Time: Total time managing care of this patient today ____ minutes.
--- NOTE | 2023-12-19 10:09 | W.PM.OPN ---
Operative Note Operative Note Date of Service: 12/19/23 Narrative: Preoperative diagnosis: Right inguinal hernia, reducible Postoperative diagnosis: Same Procedure: Repair of right inguinal hernia with mesh Surgeon: John Streeter MD Dealer Support Technician: Erika John PA-C Anesthesia: General LMA Indications for procedure: 68-year-old male patient presenting with a soft tissue mass in the right groin increases with lifting and straining. On examination the patient has a direct right inguinal hernia which is easily reducible. Operative findings: Reducible direct inguinal hernia Specimen: None Estimated blood loss: 5 mL Complications: None Procedure details: Patient was brought to the OR and placed in a supine position. After administering general anesthesia the patient's abdomen was prepped with ChloraPrep and draped in a sterile fashion. A surgical time-out was called and consent confirmed. Patient received preoperative antibiotics and Venodyne boots were in place. Local anesthesia consisting of 0.5% Sensorcaine was infiltrated over the right inguinal ligament. Incision was made with a scalpel carried out through subcutaneous tissue, past Mikey's fashion up to the external oblique aponeurosis. Additional local was infiltrated below the aponeurosis. This was then incised with a scalpel widened with the Metzenbaum scissors. The spermatic cord was then dissected free from the surrounding inguinal canal and retracted using a [place] drain. A direct hernia was immediately identified. The spermatic cord was dissected free from the hernia sac. No indirect hernia could be identified. The spermatic cord was retracted free and the hernia sac opened through the internal oblique and transversalis aponeurosis. An open Ray-Attila sponge was then used to dissect the preperitoneal space. A large extended PHS mesh was then obtained. The circular underlay was deployed within the preperitoneal space. The overlay was then secured to the pubic tubercle, conjoined tendon, and shelving edge of the inguinal ligament using a 0 Polysorb suture. A slit was made in the mesh at the level of the internal ring. This was then wrapped around the spermatic cord at the internal ring and secured to the shelving edge using the 0 Polysorb suture. The remainder of the mesh was then secured laterally below the external oblique aponeurosis. Wounds were then irrigated with saline solution and suctioned dry. Wounds were checked for hemostasis. External oblique aponeurosis was then closed using a running 2-0 Polysorb suture. Approximately 4 mL of Zenrelef was then infiltrated below the external oblique aponeurosis. Mikey's fascia was then reapproximated using interrupted 3-0 Polysorb sutures. Dermis was reapproximated using interrupted 3-0 Polysorb sutures. Skin was closed using a running subcuticular 4-0 Polysorb suture. Steri-Strips, 2 x 2 gauze and Tegaderm were then applied. The patient tolerated the procedure well. Sponge, instrument, and needle counts were reported as correct. The patient was transferred to PACU in stable condition.
[2023-12-19 10:26] VITALS: BP 143/90; PULSE 82; RESP 16; TEMP 36.1; O2SAT 94
[2023-12-19 10:31] VITALS: BP 124/84; PULSE 84; RESP 16; O2SAT 94
[2023-12-19 10:36] VITALS: BP 119/58; PULSE 87; RESP 16; O2SAT 96
[2023-12-19] MEDS: Ketorolac Tromethamine 15 MG/ML VIAL IVPUSH (10:40)
[2023-12-19 10:41] VITALS: BP 135/88; PULSE 84; RESP 16; O2SAT 96
[2023-12-19 10:56] VITALS: BP 132/85; PULSE 77; RESP 16; O2SAT 97
== END 2023-12-19 11:27 | disposition home or self-care (01) ==
PROVIDERS: Nurse Practitioner; PCP Internal Medicine; Visit Provider Surgery
PROC: (CPT 49505; principal; 2023-12-19 09:10)
DX: K40.90 Unilateral inguinal hernia, without obstruction or gangrene, not specified as recurrent (principal); I10 Essential (primary) hypertension; E78.2 Mixed hyperlipidemia; E11.65 Type 2 diabetes mellitus with hyperglycemia; Z79.51 Long term (current) use of inhaled steroids; Z79.84 Long term (current) use of oral hypoglycemic drugs; Z79.899 Other long term (current) drug therapy; Z91.041 Radiographic dye allergy status; Z88.8 Allergy status to other drugs, medicaments and biological substances; Z98.890 Other specified postprocedural states; Z87.891 Personal history of nicotine dependence
CPT/HCPCS: 49505; 36415; 80048; 82947; 83036; 85027; 93005; C1781; C9088; J0690; J1100; J1885; J2250; J2405; J2704; J2795; J3010

== ENCOUNTER → 2023-12-19 07:13 | Outpatient (BNV) | payer BC, SELFPAY | PROVIDERS: PCP Internal Medicine; Visit Provider Surgery | DX: K40.90 Unilateral inguinal hernia, without obstruction or gangrene, not specified as recurrent (principal) | CPT/HCPCS: 49505 ==

== ENCOUNTER 2023-12-20 11:44 | Emergency (ER) | payer BC, SELFPAY ==
--- NOTE | ~2023-12-20 | CT_ITS ---
EXAMINATION: CT ABDOMEN AND PELVIS WITHOUT AND WITH CONTRAST CLINICAL INFORMATION: Rectal bleeding COMPARISON: Pelvic ultrasound 10/23/2023, CT abdomen and pelvis 11/06/2020. TECHNIQUE: Multidetector volumetric imaging was performed of the abdomen and pelvis before and after the IV administration of 80 mL of Omnipaque 350 intravenous contrast. Sagittal and coronal reformatted images were obtained on the technologist's workstation. This CT examination was performed using dose optimization techniques as appropriate, variously including the following: *Automated exposure control *Adjustment of mA and/or kV according to patient size (this includes techniques or standardized protocols for targeted exams where dose is matched to indication/reason for exam; i.e. extremities or head) *Use of iterative reconstruction technique DLP: 1340 mGy-cm FINDINGS: LUNG BASES: Minor right basilar atelectasis or scarring. LIVER, GALLBLADDER, AND BILIARY TREE: Hepatic steatosis. No discrete liver mass. No ductal dilatation. Gallbladder unremarkable PANCREAS: No discrete mass. No ductal dilatation. SPLEEN: The spleen appears normal. ADRENAL GLANDS: No adrenal mass. KIDNEYS AND URETERS: Symmetric nephrograms. Small simple cyst for which no imaging follow-up is recommended. No nephrolithiasis or hydronephrosis. BLADDER: No discrete mass GASTROINTESTINAL TRACT: Small and large bowel are normal in caliber. No extravasated intravenous contrast into the bowel lumen to suggest an active arterial GI bleed. There are likely small hemorrhoids without visible extravasation. Diverticulosis. Mild diverticulitis of the proximal descending colon. ABDOMINAL WALL: Postoperative repairs related to right inguinal hernia. There is gas in the soft tissues which is presumably related to surgery although infection is not entirely excluded and needs to be evaluated clinically. LYMPH NODES: No pathologically enlarged lymph nodes. VASCULAR: No aortic aneurysm. PELVIC VISCERA: The prostate is enlarged. OSSEOUS STRUCTURES: Generative changes in the spine. No destructive osseous lesions. CT/CT gi bleed abd pel wo/w IVcon IMPRESSION: Mild diverticulitis of the proximal descending colon. No active GI bleed by CT scan. Suspect small hemorrhoids. Gas in the soft tissues in the right inguinal region presumably related to recent surgery. Clinical correlation is absolutely necessary as deep tissue infection cannot be excluded by imaging. Electronically signed by: Eloy James MD 12/20/2023 04:34 PM EDT
[2023-12-20 11:47] VITALS: BP 165/97; PULSE 93; RESP 18; TEMP 36.9; O2SAT 98; BMI 27.4
--- NOTE | 2023-12-20 11:51 | ED_ITS ---
HPI - General Adult General Chief complaint: General Medical Stated complaint: blood in stool Time Seen by Provider: 12/20/23 13:15 Source: patient Mode of arrival: ambulatory Limitations: no limitations History of Present Illness ED Provider: Perlita ASH HPI narrative: This is a 68 yo male hx of GERD, insulin dependent DM, RBBB, HTN, s/p right inguinal hernia repair (12/19/[address] Streeter) here for eval of 2 episode of painless BRBPR this morning enough that it filled the entire toilet . He denies rectal pain. Endorses minimal abdominal pain at incision site. Denies, cp, sob, nausea, vomiting, diarrhea, changes in vision, hedache, fevers, chills. Not on blood thinners. Hx of smoking Related Data Home Medications ?Medication ?Instructions ?Recorded ?Confirmed semaglutide 0.25 mg or 0.5 mg (2 0.25 mg subcut QWEEK 12/11/23 12/12/23 mg/3 mL) subcutaneous pen injector ([employer]empic) bupropion HCl 150 mg tablet,12 hr 150 mg PO Q OTHER DAY 12/12/23 12/12/23 sustained-release Previous Rx's ?Medication ?Instructions ?Recorded fluticasone propionate 50 1 spray intranasal BID Rhinorrhea 06/20/22 mcg/actuation nasal and nasal congestion #16 grams spray,suspension (Allergy Relief (fluticasone)) loratadine 10 mg tablet (Allergy 10 mg PO DAILY PRN allergy 06/20/22 Relief (loratadine)) symptoms #30 tabs rosuvastatin 5 mg tablet 5 mg PO 3XW 90 days #39 tabs 06/20/23 metformin 1,000 mg tablet 1,000 mg PO BID 90 days #180 tabs 06/26/23 lisinopril 20 mg tablet 20 mg PO DAILY #90 tabs 08/20/23 Jardiance 25 mg tablet 25 mg PO QAM #90 tabs 08/21/23 (empagliflozin) carvedilol 3.125 mg tablet 3.125 mg PO BID 90 days #180 tabs 09/03/23 omeprazole 10 mg capsule,delayed 10 mg PO DAILY #90 caps 11/22/23 release oxycodone 5 mg tablet 5 mg PO Q6H PRN pain (scale score 12/19/23 7-10) #15 tabs amoxicillin 875 mg-potassium 1 tab PO BID #14 tabs 12/20/23 clavulanate 125 mg tablet Allergies Allergy/AdvReac Type Severity Reaction Status Date / Time barium sulfate Allergy Intermediate rash Verified 12/20/23 11:49 varenicline Allergy Intermediate rash Verified 12/20/23 11:49 Review of Systems 2 Review of Systems: Yes all other systems are reviewed and are negative PMFSH Past Medical History Attestation statement: The following information was validated with the patient. Source: old records reviewed and nursing notes reviewed Medical History Hx of syncope (~2021) Anxiety Right inguinal hernia Vitamin D deficiency Rash and nonspecific skin eruption RBBB (right bundle branch block) Sinus tachycardia by electrocardiogram Mixed dyslipidemia Hx of skin cancer, basal cell Epiploic appendagitis Seasonal allergic rhinitis Hypertriglyceridemia Family history of prostate cancer Prostate cancer screening Essential hypertension Diabetes mellitus with hyperglycemia, without long-term current use of insulin Surgical History History of esophagogastroduodenoscopy (EGD) History of inguinal hernia repair History of colonoscopy H/O arthroscopy of shoulder History of basal cell carcinoma excision History of tonsillectomy Family History Family History Father Stroke Aneurysm Cancer of prostate Mother Asbestos exposure Lung cancer Smoker Maternal Grandfather No problems noted. Maternal Grandmother No problems noted. Paternal Grandfather No problems noted. Paternal Grandmother No problems noted. Maternal Aunt Diabetes mellitus Sister No problems noted. Social History Social History Household Members: Significant Other Housing: House Are you a primary home care assistant to a significant other at home: No Do you presently have visiting nurse or other home services: No Alcohol intake: current Alcohol intake frequency: a few times a week Alcohol type: wine Patient Tobacco Use Status: Former Tobacco user Tobacco use type: Cigarette Smoked in Last 30 Days: No e-Cigarette/Vaping Use: Never Used Use of substances other than those prescribed or required for medical reasons: No Substance Use Type: Marijuana Advance Directives: No Advance Directives Information Provided: No Do you have a plan to hurt others: No Plan service: No Current occupational status: employed Cognitive needs: No Hearing needs: No Vision needs: Yes Physical Exam ED Vital Signs: Vital Signs - 24 hr 12/20/23 11:47 12/20/23 14:59 12/20/23 16:41 Temperature 98.4 F 98.8 F 97.8 F Pulse Rate 93 88 84 Respiratory Rate 18 14 16 Blood Pressure 165/97 H 146/86 H 151/87 H Pulse Oximetry 98 96 97 Oxygen Delivery Method Room Air Room Air Room Air BMI result Body Mass Index 27.4 vss Appearance: Alert.? Oriented X3.? No acute distress.? Head: Normocephalic, atraumatic, no step-offs or deformities Eyes: Pupils equal, round and reactive to light.? Neck: Normal inspection.? Neck supple.? CVS: Normal heart rate and rhythm.? Pulses normal.? Respiratory: No respiratory distress.? Breath sounds normal.? Abdomen: Soft and nontender.? R inguinal region surgical site intact, clean and dry Skin: Skin warm and dry.? Normal skin color.? Normal skin turgor.? Extremities: No lower extremity edema.? No calf ttp. 5/5 strength to bilateral upper and lower extremities Neuro: Oriented X 3.? No motor deficit.? No sensory deficit. CN 2-12 intact Course Course Course Narrative: This is a Rapid Medical Examination (RME) performed by Kym Velared PA-C in triage. Full HPI, ROS, assessment and treatment plan per primary provider in the Main ED. 68 yo male hx of GERD, insulin dependent DM, RBBB, HTN, s/p left inguinal hernia repair (12/19/[address] Streeter) here for eval of 1 episode of BRBPR this morning. denies rectal pain. endorses minimal abdominal pain at incision site. states he otherwise feels well. denies dizziness, N/V. 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 Not painful. LEX w/ very scant blood, bright red. Time: 13:58 Reevaluation #2: Patient's CBC with white count of 13.6 likely reactive secondary to surgery yesterday, unlikely infectious. Chemistry with no acute findings needing intervention, chronically elevated BUN appears to be around his baseline he is tolerating p.o. fluids. No other findings on chemistry. Time: 13:59 Reevaluation #3: Repeat H&H stable. CT bleeding steady still pending. Time: 15:07 Additional Reevaluation(s): Sign out to Radha NOLAND pending CT scan 16:44 12/20/23 Patient received in sign out from CRISPIN Galvan pending results of CT scan. CT notable for mild diverticulitis of proximal descending colon. Patient reports history of same in the past, states pain was similar, but never experienced rectal bleeding with previous episodes. CT also notable for gas in soft tissues of right inguinal area. Suspect this is due to recent surgery and do not suspect deep tissue infection and patient is afebrile, nontoxic appearing. Will treat with course of Augmentin, advised patient to follow up with PCP as well as with Dr. Streeter. Strict return precautions discussed at bedside. Patient verbalized understanding of and agreement with plan. CT/CT gi bleed abd pel wo/w IVcon IMPRESSION: Mild diverticulitis of the proximal descending colon. No active GI bleed by CT scan. Suspect small hemorrhoids. Gas in the soft tissues in the right inguinal region presumably related to recent surgery. Clinical correlation is absolutely necessary as deep tissue infection cannot be excluded by imaging. Electronically signed by: Eloy James MD 12/20/2023 04:34 PM EDT Medications Administered Discontinued Medications Generic Name Dose Route Start Last Admin Trade Name Freq PRN Reason Stop Dose Admin Iohexol 100 ml 12/20/23 14:43 12/20/23 14:45 Iohexol 350 Mg/Ml 100 Ml Infus..Btl IV 12/20/23 14:44 85 ml ONCE ONE Administration Medical Decision Making Medical Decision Making [facility] Narrative: 68 year old male presents s/p inguinal hernia repair w/ BRBPR since this AM 2 episodes PE benign , surgical site intact, clean and dry History and physical exam concerning for possible hemorrhoids versus surgical surgical complication. Will rule out acute blood loss anemia however no signs of hypovolemic shock or hemodynamic instability. Other differentials include colon cancer although less likely based off his history. Will rule out metabolic derangements. No signs of acute hemorrhage Plan-obs, labs, imaging. gen surgery consult Differential Diagnosis Differential Diagnoses: The differential diagnosis associated with the presentation includes History and physical exam concerning for possible hemorrhoids versus surgical surgical complication. Will rule out acute blood loss anemia however no signs of hypovolemic shock or hemodynamic instability. Other differentials include colon cancer although less likely based off his history. Will rule out metabolic derangements. No signs of acute hemorrhage Admission/Observation Consideration of admission/observation: Escalation of care including admission/observation considered Possible Consult Healthcare Provider Management of the patient was discussed with: Supervisor Beehive Kiln Lab Data MDM Lab Attestation statement: I reviewed the patient's lab results. 12/20/23 14:57 12/20/23 12:13 Labs: Lab Results 12/20/23 12/20/23 12/20/23 Range/Units 12:13 13:36 14:17 WBC 13.6 H (4.8-10.8) X10*3/uL RBC 5.05 (4.60-5.80) X10*6/uL Hgb 14.8 (14.0-18.0) g/dl Hct 43.9 (42.0-52.0) % MCV 86.9 (80.0-98.0) fL MCH 29.3 (27.0-33.0) pg MCHC 33.7 (31.0-36.0) g/dl RDW 13.2 (11.0-16.0) % Plt Count 321 (160-400) X10*3/uL MPV 10.4 (9.4-12.4) fL Immature Gran % (Auto) 0.8 H (0.0-0.4) % Neut % (Auto) 64.6 (45-73) % Lymph % (Auto) 22.3 (20-40) % Apache % (Auto) 10.3 (2-11) % Eos % (Auto) 1.5 (0-4) % Baso % (Auto) 0.5 (0-2) % Lymph # (Auto) 3.0 (1.2-4.9) X10*3/uL [place] # (Auto) 1.4 H (0.1-1.2) X10*3/uL Eos # (Auto) 0.2 (0.0-0.4) X10*3/uL Baso # (Auto) 0.1 (0.0-0.2) X10*3/uL Abs Immat Gran (auto) 0.11 H (0.00-0.03) X10*3/uL Absolute Neuts (auto) 8.8 H (2.0-8.3) x10*3/uL Absolute Nucleated RBC 0.000 (0.0-0.012) X10*3/uL Nucleated RBC % (auto) 0.0 (0.0-0.2) /100WBC Sodium 139 (135-145) mmol/L Potassium 4.2 (3.3-5.1) mmol/L Chloride 108 (96-108) mmol/L Carbon Dioxide 22 (22-29) mmol/L Anion Gap 13 (12-20) BUN 22 H (9-16) mg/dL Creatinine 0.89 (0.5-1.4) mg/dL Estim Creat Clear Calc 78.6 Estimated GFR > 60 Random Glucose 166 H (60-115) mg/dL Calcium 9.4 D (8.4-10.2) mg/dL Magnesium 1.8 (1.6-2.6) mg/dL Urine Color Urine Appearance Urine pH (5.0-9.0) Ur Specific Menan (1.005-1.025) Urine Protein (Neg-Trace) mg/dL Urine Glucose (UA) (Negative) mg/dL Urine Ketones (Negative) mg/dL Urine Blood (Negative) Urine Nitrite (Negative) Ur Leukocyte Esterase (Negative) Urine RBC (0-2) /HPF Urine WBC (0-5) /HPF Ur Squamous Epith Cells (0-2) /HPF Urine Bacteria (None Seen) Hyaline Casts (0-2) /LPF Stool Occult Blood POSITIVE (NEGATIVE) Blood Type O Positive Antibody Screen NEGATIVE 12/20/23 12/20/23 Range/Units 14:57 15:24 WBC 13.1 H (4.8-10.8) X10*3/uL RBC 4.83 (4.60-5.80) X10*6/uL Hgb 14.3 (14.0-18.0) g/dl Hct 41.6 L (42.0-52.0) % MCV 86.1 (80.0-98.0) fL MCH 29.6 (27.0-33.0) pg MCHC 34.4 (31.0-36.0) g/dl RDW 13.2 (11.0-16.0) % Plt Count 312 (160-400) X10*3/uL MPV 10.5 (9.4-12.4) fL Immature Gran % (Auto) 0.7 H (0.0-0.4) % Neut % (Auto) 64.2 (45-73) % Lymph % (Auto) 22.9 (20-40) % Apache % (Auto) 9.7 (2-11) % Eos % (Auto) 2.1 (0-4) % Baso % (Auto) 0.4 (0-2) % Lymph # (Auto) 3.0 (1.2-4.9) X10*3/uL [place] # (Auto) 1.3 H (0.1-1.2) X10*3/uL Eos # (Auto) 0.3 (0.0-0.4) X10*3/uL Baso # (Auto) 0.1 (0.0-0.2) X10*3/uL Abs Immat Gran (auto) 0.09 H (0.00-0.03) X10*3/uL Absolute Neuts (auto) 8.4 H (2.0-8.3) x10*3/uL Absolute Nucleated RBC 0.000 (0.0-0.012) X10*3/uL Nucleated RBC % (auto) 0.0 (0.0-0.2) /100WBC Sodium (135-145) mmol/L Potassium (3.3-5.1) mmol/L Chloride (96-108) mmol/L Carbon Dioxide (22-29) mmol/L Anion Gap (12-20) BUN (9-16) mg/dL Creatinine (0.5-1.4) mg/dL Estim Creat Clear Calc Estimated GFR Random Glucose (60-115) mg/dL Calcium (8.4-10.2) mg/dL Magnesium (1.6-2.6) mg/dL Urine Color Yellow Urine Appearance Clear Urine pH 5.5 (5.0-9.0) Ur Specific Menan >= 1.030 H (1.005-1.025) Urine Protein Negative (Neg-Trace) mg/dL Urine Glucose (UA) >=1000 H (Negative) mg/dL Urine Ketones Negative (Negative) mg/dL Urine Blood Negative (Negative) Urine Nitrite Negative (Negative) Ur Leukocyte Esterase Negative (Negative) Urine RBC 0-2 (0-2) /HPF Urine WBC 0-5 (0-5) /HPF Ur Squamous Epith Cells 0-2 (0-2) /HPF Urine Bacteria None Seen (None Seen) Hyaline Casts 0-2 (0-2) /LPF Stool Occult Blood (NEGATIVE) Blood Type Antibody Screen Independent Interpretation I performed an independent interpretation of an: CT Scan Radiology Impression Discussion of test interpretation with radiology: I have reviewed the radiologist's reading. Critical Care Time Critical Care Time Critical Care Time: No Discharge Plan Discharge Clinical Impression: Diverticulitis, GI bleed Patient Disposition: Home, Self-Care Instructions: Diverticulitis (ED), Hemorrhoids (DC) Additional Instructions: Take your medications as prescribed. If you were prescribed antibiotics today, it is important that you take your medication to their entirety, do not skip any doses, do not finish them early. Follow-up with your primary care provider this week. Follow up with Dr. Streeter as well. Return to the emergency department with new or worsening symptoms. Such as fevers, chills, chest pain, shortness of breath, nausea, vomiting, dizziness, headache, vision changes, lethargy In case of emergency call 911 Return with any new or worsening symptoms such as worsening bleeding. Prescriptions: New amoxicillin-pot clavulanate 875-125 mg tablet 1 tab PO BID Qty: 14 0RF No Action rosuvastatin 5 mg tablet 5 mg PO 3XW 90 Days Qty: 39 2RF metformin 1,000 mg tablet 1,000 mg PO BID 90 Days Qty: 180 1RF lisinopril 20 mg tablet 20 mg PO DAILY Qty: 90 3RF carvedilol 3.125 mg tablet 3.125 mg PO BID 90 Days Qty: 180 3RF omeprazole 10 mg capsule,delayed release(DR/EC) 10 mg PO DAILY Qty: 90 0RF Ozempic 0.25 mg or 0.5 mg (2 mg/3 mL) pen injector 0.25 mg subcut QWEEK Patient Comments: takes on Tuesdays bupropion HCl 150 mg tablet sustained-release 12 hr 150 mg PO Q OTHER DAY oxycodone 5 mg tablet 5 mg PO Q6H PRN (Reason: pain (scale score 7-10)) Qty: 15 0RF Rx Instructions: Partial Fill upon patient request. fluticasone propionate [Allergy Relief (fluticasone)] 50 mcg/actuation spray,suspension 1 spray intranasal BID Qty: 16 3RF Rx Instructions: administer into each nostril loratadine [Allergy Relief (loratadine)] 10 mg tablet 10 mg PO DAILY PRN (Reason: allergy symptoms) Qty: 30 4RF Jardiance 25 mg tablet 25 mg PO QAM Qty: 90 3RF Referrals: Dianna Huitron MD [Primary Care Provider] - 2 days Stand Alone Forms: Work/School Release Print Language: Latvian
[2023-12-20 12:17] LABS: MANUAL DIFF FLAG NO
[2023-12-20 12:26] LABS: Basophils Absolute Auto 0.1 X10*3/uL (0.0-0.2); Basophils Percent Auto 0.5 % (0-2); Eosinophils Absolute Auto 0.2 X10*3/uL (0.0-0.4); Eosinophils Percent Auto 1.5 % (0-4); Hematocrit 43.9 % (42.0-52.0); Hemoglobin 14.8 g/dl (14.0-18.0); Imm Gran Abs Auto 0.11 X10*3/uL (0.00-0.03); Imm Gran Pct Auto 0.8 % (0.0-0.4); Lymphocytes Percent Auto 22.3 % (20-40); Mean Corpuscular HGB Conc 33.7 g/dl (31.0-36.0); Mean Corpuscular Hemoglobin 29.3 pg (27.0-33.0); Mean Corpuscular Volume 86.9 fL (80.0-98.0); Mean Platelet Volume 10.4 fL (9.4-12.4); Monocytes Absolute Auto 1.4 X10*3/uL (0.1-1.2); Monocytes Percent Auto 10.3 % (2-11); Neutrophils Absolute Auto 8.8 x10*3/uL (2.0-8.3); Neutrophils Percent Auto 64.6 % (45-73); Platelet Count 321 X10*3/uL (160-400); Red Blood Count 5.05 X10*6/uL (4.60-5.80); Red Cell Distribution Width 13.2 % (11.0-16.0); White Blood Count 13.6 X10*3/uL (4.8-10.8)
[2023-12-20 12:34] LABS: Anion Gap 13 (12-20); Blood Urea Nitrogen 22 mg/dL (9-16); Calcium 9.4 mg/dL (8.4-10.2); Carbon Dioxide 22 mmol/L (22-29); Chloride 108 mmol/L (96-108); Creatinine Clr Calc Pharmacy 78.6; Estimated Glomerular Filt Rate > 60; Glucose Random 166 mg/dL (60-115); Magnesium 1.8 mg/dL (1.6-2.6); Potassium 4.2 mmol/L (3.3-5.1); Sodium 139 mmol/L (135-145)
[2023-12-20 14:27] LABS: OBS Int Ctl Valid YES; OBS1 POSITIVE (NEGATIVE)
[2023-12-20] MEDS: iohexoL 350 MG/ML 100 ML INFUS..BTL IV (14:45)
[2023-12-20 14:59] VITALS: BP 146/86; PULSE 88; RESP 14; TEMP 37.1; O2SAT 96
[2023-12-20 15:01] LABS: MANUAL DIFF FLAG NO
[2023-12-20 15:04] LABS: Basophils Absolute Auto 0.1 X10*3/uL (0.0-0.2); Basophils Percent Auto 0.4 % (0-2); Eosinophils Absolute Auto 0.3 X10*3/uL (0.0-0.4); Eosinophils Percent Auto 2.1 % (0-4); Hematocrit 41.6 % (42.0-52.0); Hemoglobin 14.3 g/dl (14.0-18.0); Imm Gran Abs Auto 0.09 X10*3/uL (0.00-0.03); Imm Gran Pct Auto 0.7 % (0.0-0.4); Lymphocytes Percent Auto 22.9 % (20-40); Mean Corpuscular HGB Conc 34.4 g/dl (31.0-36.0); Mean Corpuscular Hemoglobin 29.6 pg (27.0-33.0); Mean Corpuscular Volume 86.1 fL (80.0-98.0); Mean Platelet Volume 10.5 fL (9.4-12.4); Monocytes Absolute Auto 1.3 X10*3/uL (0.1-1.2); Monocytes Percent Auto 9.7 % (2-11); Neutrophils Absolute Auto 8.4 x10*3/uL (2.0-8.3); Neutrophils Percent Auto 64.2 % (45-73); Platelet Count 312 X10*3/uL (160-400); Red Blood Count 4.83 X10*6/uL (4.60-5.80); Red Cell Distribution Width 13.2 % (11.0-16.0); White Blood Count 13.1 X10*3/uL (4.8-10.8)
[2023-12-20 15:33] LABS: Appearance Urine Clear; Color Urine Yellow; Glucose Urine UA >=1000 mg/dL (Negative); Leukocyte Esterase Urine Negative (Negative); Nitrite Urine Negative (Negative); PH 5.5 (5.0-9.0); Specific Gravity - Urine >= 1.030 (1.005-1.025); UMIC TRIGGER UACC YES; Urine Blood Negative (Negative); Urine Ketones Negative (Negative); Urine Protein Negative (Neg-Trace)
[2023-12-20 16:16] LABS: Bacteria Urine None Seen (None Seen); Hyaline Casts Urine 0-2 /LPF (0-2); RBC Urine 0-2 /HPF (0-2); Squamous Epithelial Cell Urine 0-2 /HPF (0-2); WBC Urine 0-5 /HPF (0-5)
[2023-12-20 16:41] VITALS: BP 151/87; PULSE 84; RESP 16; TEMP 36.6; O2SAT 97
[2023-12-20 16:59] VITALS: BP 151/87; PULSE 84; RESP 18; TEMP 36.6; O2SAT 98
== END 2023-12-20 17:00 | disposition home or self-care (01) ==
PROVIDERS: Physician Assistant; Physician Assistant Medical; Emergency Provider Emergency Medicine; PCP Internal Medicine
DX: K57.32 Diverticulitis of large intestine without perforation or abscess without bleeding (principal); K92.2 Gastrointestinal hemorrhage, unspecified; E11.9 Type 2 diabetes mellitus without complications; I10 Essential (primary) hypertension; E78.5 Hyperlipidemia, unspecified; Z87.891 Personal history of nicotine dependence; Z79.4 Long term (current) use of insulin; Z79.84 Long term (current) use of oral hypoglycemic drugs; Z79.899 Other long term (current) drug therapy
CPT/HCPCS: 36415; 74178; 80048; 81001; 82272; 83735; 85025; 86850; 86900; 86901; 99284; Q9967

== ENCOUNTER 2023-12-28 11:20 | Outpatient (AMB) | payer BC, SELFPAY ==
--- NOTE | 2023-12-28 11:24 | A.OFFVIS_ITS ---
Vital Signs 12/28/23 11:28 Height 5 ft 6 in Weight 169 lb 8.568 oz BMI 27.4 Pulse 80 Intake Visit Reasons: S/P RIH w/mesh Intake Note: Patient is seen in office for post op assessment post right inguinal hernia repair. 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 He had some bleeding per rectum last week and was evaluated in the emergency department. Subsequent CT abdomen and pelvis revealed evidence of diverticulitis. He was subsequently started on antibiotics and reports an improvement in the bleeding. He also reports irritation from the hemorrhoids after the frequent bowel movements. He has some soreness in the right groin bruising in the testicle. This is improving however since the surgery. He denies any fever or chills. [facility] Medical History Hx of syncope (~2021) Anxiety Right inguinal hernia Vitamin D deficiency Rash and nonspecific skin eruption RBBB (right bundle branch block) Sinus tachycardia by electrocardiogram Mixed dyslipidemia Hx of skin cancer, basal cell Epiploic appendagitis Seasonal allergic rhinitis Hypertriglyceridemia Family history of prostate cancer Prostate cancer screening Essential hypertension Diabetes mellitus with hyperglycemia, without long-term current use of insulin Surgical History History of esophagogastroduodenoscopy (EGD) History of inguinal hernia repair History of colonoscopy H/O arthroscopy of shoulder History of basal cell carcinoma excision History of tonsillectomy Family History Father Stroke Aneurysm Cancer of prostate Mother Asbestos exposure Lung cancer Smoker Maternal Grandfather No problems noted. Maternal Grandmother No problems noted. Paternal Grandfather No problems noted. Paternal Grandmother No problems noted. Maternal Aunt Diabetes mellitus Sister No problems noted. Social History Household Members: Significant Other Housing: House Are you a primary youth care worker to a significant other at home: No Do you presently have visiting nurse or other home services: No 75 years or older and lives alone: No Alcohol intake: current Alcohol intake frequency: a few times a week Alcohol type: wine Patient Tobacco Use Status: Former Tobacco user Tobacco use type: Cigarette e-Cigarette/Vaping Use: Never Used Substance Use Type: Marijuana service: No Current occupational status: employed Cognitive needs: No Hearing needs: No Vision needs: Yes Physical Exam Vital Signs: Last Vital Signs Pulse 80 12/28/23 11:28 BMI result Body Mass Index 27.4 Const General: comfortable Nutritional Appearance: well nourished Orientation/consciousness: patient oriented x3 Limitations: no limitations Resp Effort & Inspection: normal respiratory effort, no audible wheezes, no cough and no respiratory distress GI Other: Incision in right groin is clean, dry, and intact without redness or discharge. There is ecchymosis extending below the incision but no hematoma. No hernia noted with Valsalva maneuvers. Neuro General: patient oriented x3 Extrem General: Yes no clubbing, cyanosis or edema Assessment & Plan Assessment & Plan (1) Right inguinal hernia: Code(s): K40.90 - Unilateral inguinal hernia, without obstruction or gangrene, not specified as recurrent Category: Medical Plan 68-year-old male patient returning 1 week following repair of a right inguinal hernia with mesh. His wounds are clean, dry, and intact without evidence of infection or hernia recurrence. Should continue to avoid lifting greater than 10 lb for the next 4 weeks. He should follow up in 1 month for wound examination. Coding Level of Care Code Global (29508) Diagnoses Right inguinal hernia K40.90
[2023-12-28 11:28] VITALS: PULSE 80; BMI 27.4
== END 2023-12-28 11:36 | disposition home or self-care (01) ==
PROVIDERS: PCP Internal Medicine; Visit Provider Surgery
DX: K40.90 Unilateral inguinal hernia, without obstruction or gangrene, not specified as recurrent (principal)
CPT/HCPCS: 99024

== ENCOUNTER → 2023-12-28 11:20 | Outpatient (BNVA) | payer BC, SELFPAY | PROVIDERS: PCP Internal Medicine; Visit Provider Surgery ==

== ENCOUNTER 2024-01-25 11:38 | Outpatient (AMB) | payer BC, SELFPAY ==
--- NOTE | 2024-01-25 11:42 | MHC.OFFVIS ---
Vital Signs 01/25/24 11:46 Height 5 ft 6 in Weight 164 lb 6 oz BMI 26.5 BP 127/71 Blood Pressure Location Lt brachial Position Sitting Pulse 97 Intake Visit Reasons: 1 mth follow up S/P RIH w/mesh Intake Note: Patient is seen in office for one month follow up visit, post right inguinal hernia repair. Pt c/o: sore in the area, no other concerns or changes Surgical Technology Instructor Required: No Accompanied by: Self / Same As Patient Allergies barium sulfate Allergy (Intermediate, Verified 01/25/24 11:47) rash varenicline Allergy (Intermediate, Verified 01/25/24 11:47) rash HPI Comments Details: 68-year-old male patient returning for final postoperative visit following repair of a right inguinal hernia with mesh on 12/19/2023. He reports occasional soreness in the incision in a small area of numbness below the incision. Overall he feels much improved and denies any new symptoms. He is eating well and denies any bowel problems. Denies any further bleeding per rectum. [facility] Medical History (Updated 01/25/24 @ 12:36 by John Streeter MD) Hx of syncope (~2021) Anxiety Right inguinal hernia Vitamin D deficiency Rash and nonspecific skin eruption RBBB (right bundle branch block) Sinus tachycardia by electrocardiogram Mixed dyslipidemia Hx of skin cancer, basal cell Epiploic appendagitis Seasonal allergic rhinitis Hypertriglyceridemia Family history of prostate cancer Prostate cancer screening Essential hypertension Diabetes mellitus with hyperglycemia, without long-term current use of insulin Surgical History History of esophagogastroduodenoscopy (EGD) History of inguinal hernia repair History of colonoscopy H/O arthroscopy of shoulder History of basal cell carcinoma excision History of tonsillectomy Family History Father Stroke Aneurysm Cancer of prostate Mother Asbestos exposure Lung cancer Smoker Maternal Grandfather No problems noted. Maternal Grandmother No problems noted. Paternal Grandfather No problems noted. Paternal Grandmother No problems noted. Maternal Aunt Diabetes mellitus Sister No problems noted. Social History Household Members: Significant Other Housing: House Are you a primary care transition mgr to a significant other at home: No Do you presently have visiting nurse or other home services: No 75 years or older and lives alone: No Alcohol intake: current Alcohol intake frequency: a few times a week Alcohol type: wine Patient Tobacco Use Status: Former Tobacco user Tobacco use type: Cigarette e-Cigarette/Vaping Use: Never Used Substance Use Type: Marijuana service: No Current occupational status: employed Cognitive needs: No Hearing needs: No Vision needs: Yes Physical Exam Vital Signs: Last Vital Signs Pulse 97 01/25/24 11:46 BP 127/71 01/25/24 11:46 BMI result Body Mass Index 26.5 Const General: comfortable Nutritional Appearance: well nourished Orientation/consciousness: patient oriented x3 Resp Effort & Inspection: normal respiratory effort, no audible wheezes, no cough and no respiratory distress GI Other: Soft and nondistended, well-healed incision in the right groin with no palpable hernia with Valsalva maneuvers. No evidence of wound infection. Skin General skin exam: no rashes or lesions noted Neuro General: patient oriented x3 Assessment & Plan Assessment & Plan (1) Right inguinal hernia: Code(s): K40.90 - Unilateral inguinal hernia, without obstruction or gangrene, not specified as recurrent Category: Medical Plan 68-year-old male patient status post repair of a right inguinal hernia with mesh. His wounds are well healed without evidence of infection or hernia recurrence. He may resume normal activity without restriction and should follow up as needed. Coding Level of Care Code Global (90201) Diagnoses Right inguinal hernia K40.90
[2024-01-25 11:46] VITALS: BP 127/71; PULSE 97; BMI 26.5
== END 2024-01-25 11:50 | disposition home or self-care (01) ==
PROVIDERS: PCP Internal Medicine; Visit Provider Surgery
DX: K40.90 Unilateral inguinal hernia, without obstruction or gangrene, not specified as recurrent (principal)
CPT/HCPCS: 99024

== ENCOUNTER → 2024-01-25 11:38 | Outpatient (BNVA) | payer BC, SELFPAY | PROVIDERS: PCP Internal Medicine; Visit Provider Surgery ==

== ENCOUNTER 2024-02-04 09:19 | Outpatient (AMB) | payer BC, SELFPAY ==
[2024-02-04 09:26] VITALS: BP 130/72; PULSE 87; BMI 27.0
--- NOTE | 2024-02-04 09:26 | A.OFFVIS_ITS ---
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 Required: No Allergies barium sulfate Allergy (Intermediate, Verified 02/04/24 09:27) rash varenicline Allergy (Intermediate, Verified 02/04/24 09:27) rash Medication List - Last Reconciled 02/04/24 by Jerry Vanegas MD bupropion HCl SR 150 mg PO Q OTHER DAY carvedilol 3.125 mg PO BID 90 days fluticasone propionate 50 mcg/actuation (Allergy Relief (fluticasone)) 1 spray intranasal BID Jardiance (empagliflozin) 25 mg PO QAM NS lisinopril 20 mg PO DAILY loratadine (Allergy Relief (loratadine)) 10 mg PO DAILY PRN metformin 1,000 mg PO BID 90 days omeprazole 10 mg PO DAILY rosuvastatin 5 mg PO 3XW 90 days semaglutide (Ozempic) 0.25 mg (0.368 mL) subcut QWEEK HPI Comments Details: 68-year-old gentleman here for follow-up. He was seen in the hospital when he presented with syncope which was thought to be related to orthostasis and dehydration. He underwent echocardiography which showed basal inferior wall motion abnormality. He underwent stress testing which did not show any perfusion defects. Holter monitor also did not show any significant arrhythmia. He is very anxious and has sinus tachycardia. It appears he had sinus tachycardia previously too. He is denying chest discomfort or shortness of breath. on follow-up he is st able. He still is sinus tachycardia on follow-up. On this and follow up his blood pressure is also mildly elevated. His denying any chest discomfort shortness of breath. At home he is saying his heart rates are stable. He has not checked his blood pressure at home. Compliant with medications. 12/18/22: He returns for f/u. This visit we started him on carvedilol 3.125 mg twice a day for high blood pressure. His blood pressure on follow-up is 110/76. He has no chest discomfort or shortness of breath. He is saying his diabetes control still good. He has had morning sugars of 190s. 02/04/2024: He is here for follow-up. He has not been very active recently. Denying chest discomfort or shortness of breath. Heart rate is better controlled on follow-up. Blood pressure is good. EKGs showing right bundle- branch block and concern for lateral infarct as seen before. Blood sugar control has not been good. His last hemoglobin A1c 7.9. LDL was 67 HDL 32 cholesterol 122 and triglycerides 117. [facility] Medical History (Updated 01/25/24 @ 12:36 by John Streeter MD) Hx of syncope (~2021) Anxiety Right inguinal hernia Vitamin D deficiency Rash and nonspecific skin eruption RBBB (right bundle branch block) Sinus tachycardia by electrocardiogram Mixed dyslipidemia Hx of skin cancer, basal cell Epiploic appendagitis Seasonal allergic rhinitis Hypertriglyceridemia Family history of prostate cancer Prostate cancer screening Essential hypertension Diabetes mellitus with hyperglycemia, without long-term current use of insulin Surgical History History of esophagogastroduodenoscopy (EGD) History of inguinal hernia repair History of colonoscopy H/O arthroscopy of shoulder History of basal cell carcinoma excision History of tonsillectomy Family History Father Stroke Aneurysm Cancer of prostate Mother Asbestos exposure Lung cancer Smoker Maternal Grandfather No problems noted. Maternal Grandmother No problems noted. Paternal Grandfather No problems noted. Paternal Grandmother No problems noted. Maternal Aunt Diabetes mellitus Sister No problems noted. Social History Household Members: Significant Other Housing: House Are you a primary housekeeper caregiver to a significant other at home: No Do you presently have visiting nurse or other home services: No 75 years or older and lives alone: No Alcohol intake: current Alcohol intake frequency: a few times a week Alcohol type: wine Patient Tobacco Use Status: Former Tobacco user Tobacco use type: Cigarette e-Cigarette/Vaping Use: Never Used Substance Use Type: Marijuana service: No Current occupational status: employed Cognitive needs: No Hearing needs: No Vision needs: Yes Review of Systems ENT Reports dizziness Card Denies chest pain, Denies chest pain at rest, Denies chest pain with activity, Denies rapid heart rate, Denies pedal edema, Denies edema, Denies leg edema, Denies lightheadedness, Denies palpitations, Denies dyspnea, Denies dyspnea on exertion and Denies orthopnea Resp Denies cough, Denies dyspnea and Denies dyspnea on exertion GI Denies hematochezia and Denies change in stool character Musc Denies abnormal gait, Reports limited range of motion, Reports muscle cramps, Denies muscle weakness, Denies numbness, Denies radiating pain into limb, Denies stiffness and Denies tingling Neuro Denies abnormal gait, Reports dizziness, Denies numbness and Denies tingling Endo Denies palpitations Physical Exam Vital Signs: Last Vital Signs Pulse 87 02/04/24 09:26 BP 130/72 02/04/24 09:26 BMI result Body Mass Index 27.0 GENERAL APPEARANCE: in no acute distress, pleasant. NECK: no carotid bruit, no jugular venous distention. SKIN: no suspicious lesions, warm and dry. HEART: no murmurs, regular rate and rhythm. LUNGS: clear to auscultation bilaterally. ABDOMEN: soft, nontender. EXTREMITIES: no edema. PERIPHERAL PULSES: equal. NEUROLOGIC: No gross deficits, AAO X 3 Office Procedures EKG Details: Sinus rhythm 84 beats per minute, normal axis, right bundle-branch block with QRS duration 152 milliseconds, can not rule out lateral infarct, QTC 495 milliseconds. [id number], Complete Assessment & Plan Assessment & Plan (1) RBBB (right bundle branch block): Code(s): I45.10 - Unspecified right bundle-branch block Category: Medical (2) Essential hypertension: Code(s): I10 - Essential (primary) hypertension Category: Medical Plan Pleasant 68-year-old gentleman who is here for follow-up. He has background history of right bundle-branch block and hypertension. He has poor diabetes control currently and hemoglobin A1c 7.9. Blood pressure control is good on carvedilol and lisinopril. He has right bundle-branch block and evidence of lateral infarct on EKG. His EF was low-normal 2 years ago. We will repeat the echocardiogram to reassess the ejection fraction. If he develops any symptoms he will reach out to us otherwise he will see us back in 1 year. Thank you for allowing me to participate in the care of your patient. Please feel free to contact me if you have any questions. Orders: Orders CA echo transthoracic complete Today I45.10 - Unspecified right bundle-branch block Coding Level of Care Code Est Pt Level 4 (08341) Complex EM visit Add On G2211 Diagnoses RBBB (right bundle branch block) I45.10 Essential hypertension I10 CPT Codes EKG - CPT: 24043-[id number], Complete ([id number])
== END 2024-02-04 09:49 | disposition home or self-care (01) ==
PROVIDERS: PCP Internal Medicine; Visit Provider Internal Medicine Cardiovascular Disease
DX: I45.10 Unspecified right bundle-branch block (principal); I10 Essential (primary) hypertension
CPT/HCPCS: 93010; 99214

== ENCOUNTER → 2024-02-04 09:19 | Outpatient (BNVA) | payer BC, SELFPAY | PROVIDERS: PCP Internal Medicine; Visit Provider Internal Medicine Cardiovascular Disease | DX: I45.10 Unspecified right bundle-branch block (principal); I10 Essential (primary) hypertension; E11.9 Type 2 diabetes mellitus without complications; Z79.899 Other long term (current) drug therapy | CPT/HCPCS: 93005 ==

== ENCOUNTER 2024-02-18 11:19 | Outpatient (AMB) | payer BC, SELFPAY ==
[2024-02-18 11:38] VITALS: BP 110/74; PULSE 91; O2SAT 98; BMI 27.1
--- NOTE | 2024-02-18 11:38 | MHC.PC.OV ---
Vital Signs 02/18/24 11:38 Height 5 ft 6 in Weight 168 lb BMI 27.1 BP 110/74 Blood Pressure Location Rt brachial Position Sitting Pulse 91 Pulse Source Pulse Oximeter Pulse Oximetry (%) 98 Oxygen Delivery Method Room Air Intake Visit Reasons: 4 month follow up Intake Note: Pt is here today for his 4mo. f/u Allergies barium sulfate Allergy (Intermediate, Verified 02/18/24 12:09) rash varenicline Allergy (Intermediate, Verified 02/18/24 12:09) rash Medication List - Last Reconciled 02/18/24 by Dianna Huitron MD bupropion HCl SR 150 mg PO Q OTHER DAY carvedilol 3.125 mg PO BID 90 days fluticasone propionate 50 mcg/actuation (Allergy Relief (fluticasone)) 1 spray intranasal BID Jardiance (empagliflozin) 25 mg PO QAM NS lisinopril 20 mg PO DAILY loratadine (Allergy Relief (loratadine)) 10 mg PO DAILY PRN metformin 1,000 mg PO BID 90 days omeprazole 10 mg PO DAILY rosuvastatin 5 mg PO 3XW 90 days semaglutide (Ozempic) 0.25 mg (0.368 mL) subcut QWEEK Tobacco use date assessed: 02/18/24 Fall risk assessment: No Falls in past year Last assessed Fall Risk: 02/18/24 Dental Screening Dental Screen Date: 02/18/24 Did you have a dental visit in the last 12 months?: No Did you have a dental problem in the last 6 months where you did not have access to dental care?: No Was dental information given to patient?: Patient has dentist HPI 4 month follow up HPI Details 68-year-old male with diabetes mellitus, hyperlipidemia, hypertension , here today for his follow-up. Currently compliant with taking his medications, and has been trying to follow recommended diet, but has not been getting any regular exercise. He has been feeling well, with no complaints at present time, has not yet had his repeat fasting labs done [facility] Medical History (Updated 02/24/24 @ 18:40 by Dianna Huitron MD) History of right inguinal hernia Hx of syncope (~2021) Anxiety Vitamin D deficiency Rash and nonspecific skin eruption RBBB (right bundle branch block) Sinus tachycardia by electrocardiogram Mixed dyslipidemia Hx of skin cancer, basal cell Epiploic appendagitis Seasonal allergic rhinitis Hypertriglyceridemia Family history of prostate cancer Prostate cancer screening Essential hypertension Diabetes mellitus with hyperglycemia, without long-term current use of insulin Surgical History History of esophagogastroduodenoscopy (EGD) History of inguinal hernia repair History of colonoscopy H/O arthroscopy of shoulder History of basal cell carcinoma excision History of tonsillectomy Family History Father Stroke Aneurysm Cancer of prostate Mother Asbestos exposure Lung cancer Smoker Maternal Grandfather No problems noted. Maternal Grandmother No problems noted. Paternal Grandfather No problems noted. Paternal Grandmother No problems noted. Maternal Aunt Diabetes mellitus Sister No problems noted. Social History Household Members: Significant Other Housing: House Are you a primary childbirth and infant care teacher to a significant other at home: No Do you presently have visiting nurse or other home services: No 75 years or older and lives alone: No Alcohol intake: current Alcohol intake frequency: a few times a week Alcohol type: wine Patient Tobacco Use Status: Former Tobacco user Tobacco use type: Cigarette e-Cigarette/Vaping Use: Never Used Substance Use Type: Marijuana service: No Current occupational status: employed Cognitive needs: No Hearing needs: No Vision needs: Yes Questionnaire PHQ-9 Over the last 2 weeks, how often have you been bothered by any of the following problems? Depression Screening Interpretation: Negative Depression Screening Done: Yes Source: Developed by Drs. Deven Carrizales, Nela Rowe, Deandre Phipps and colleagues, with an educational emili from [employer]. Thrive Questionnaire Date Thrive assessed: 02/18/24 I am a: Patient What is your living situation today?: I have a steady place to live Within the past 12 months, did the food you bought not last and you didn't have the money to get more?: I choose not to answer this question Within the past 12 months, did you worry whether your food would run out before you got money to buy more?: I choose not to answer this question Do you have trouble paying for medicines?: I choose not to answer this question Do you have trouble getting transportation to medical appointments?: I choose not to answer this question Do you have trouble paying your heating and electricity bill?: I choose not to answer this question Do you have trouble taking care of your child, family member or friend?: I choose not to answer this question Do you have trouble with day-to-day activities such as bathing, preparing meals, shopping, managing finances, etc.?: I choose not to answer this question Are you currently unemployed and looking for a job?: I choose not to answer this question Are you interested in more education?: I choose not to answer this question Please select the resources that you would like help with: None Currently or been in a relationship where the following occur: I choose not to answer THRIVE Score: 0 AUDIT C Alcohol Use Questionnaire (AUDIT-C) 1. How often do you have a drink containing alcohol?: 2-4 times a month 2. How many drinks containing alcohol do you have on a typical day when you are drinking?: 1 or 2 3. How often do you have six or more drinks on one occasion?: Never Total Score: 2 JE-7 AMB Questionnaire JE-7 Date JE - 7 assessed: 02/18/24 Feeling nervous, anxious, or on edge: 0 = Not at all Not being able to stop or control worryin = Not at all Worrying too much about different things: 0 = Not at all Trouble relaxin = Not at all Being so restless that it is hard to sit still: 0 = Not at all Becoming easily annoyed or irritable: 0 = Not at all Feeling afraid as if something awful might happen: 0 = Not at all Total JE-7 score (0-4 normal; 5-9 mild; 10-14 moderate; 15-21 severe): 0 Source: Developed by Drs. Deven Carrizales, Nela Rowe, Deandre Phipps and colleagues, with an educational emili from [employer]. JE-7 Assessment Billing JE-7 Assessment Tool: JE-7 Assessment 21080 Review of Systems Const Reports no additional complaints Eyes Reports no additional complaints ENT Reports no additional complaints Card Denies chest pain, Denies chest pain at rest, Denies chest pain with activity, Denies rapid heart rate, Denies pedal edema, Denies edema, Denies leg edema, Denies lightheadedness, Denies palpitations, Denies dyspnea, Denies dyspnea on exertion and Denies orthopnea Resp Denies cough, Denies dyspnea and Denies dyspnea on exertion GI Denies hematochezia and Denies change in stool character Reports no additional complaints Musc Denies abnormal gait, Reports limited range of motion, Reports muscle cramps, Denies muscle weakness, Denies numbness, Denies radiating pain into limb, Denies stiffness and Denies tingling Skin/Breast Denies rash Neuro Denies abnormal gait, Denies numbness and Denies tingling Endo Denies palpitations Raghavendra/Lymph Reports no additional complaints Physical exam (Primary Care) Vital Signs: Last Vital Signs Pulse 91 02/18/24 11:38 BP 110/74 02/18/24 11:38 Pulse Ox 98 02/18/24 11:38 Oxygen Delivery Method Room Air 02/18/24 11:38 BMI result Body Mass Index 27.1 Tobacco/Smoking Status: Tobacco use Status Tobacco use date assessed 02/18/24 02/18/24 11:41 Patient Tobacco Use Status Former Tobacco user 02/18/24 11:38 Tobacco use type Cigarette 02/18/24 11:38 e-Cigarette/Vaping Use Never Used 02/18/24 11:38 Depression Screening Interpretation: Negative Thrive Assessment: Date of Thrive Assessment Date Thrive assessed 02/18/24 02/18/24 11:50 Currently or been in a relationship where the following occur: I choose not to answer Const General: no acute distress Nutritional Appearance: overweight Orientation/consciousness: patient oriented x3 HENMT Head: Yes normal to inspection Ears: external ears normal General nose exam: Normal external nose present Mouth: oropharynx normal and moist mucous membranes Eyes General: appearance normal, both eyes and all related structures Neck Neck: Yes supple Resp Effort & Inspection: normal respiratory effort Auscultation: clear to auscultation bilaterally Cardio Rhythm: regular rhythm Heart sounds: S1 normal heart sound present and S2 normal heart sound present GI Palpation (GI): Soft to palpation, nontender and no guarding Auscultation: normal bowel sounds Back/Spine/Pelvis Back: No back tenderness Skin General skin exam: no rashes or lesions noted Neuro General: patient oriented x3 Extrem General: Yes full ROM, Yes normal exam except as noted, Yes no joint enlargement, Yes no clubbing, cyanosis or edema, Yes no calf tenderness and Yes normal gait Coding Level of Care Code Est Pt Level 4 (66201) Complex EM visit Add On G2211 Diagnoses Type 2 diabetes mellitus with hyperglycemia, without long-term current use of insulin E11.65 Diabetes mellitus type: type 2 Essential hypertension I10 Mixed dyslipidemia E78.2 Anxiety F41.9 Additional Codes JE-7 Assessment Billing - JE-7 Assessment Tool: JE-7 Assessment 91022 ([id number]) Assessment & Plan Assessment & Plan (1) Diabetes mellitus with hyperglycemia, without long-term current use of insulin: Code(s): E11.65 - Type 2 diabetes mellitus with hyperglycemia Category: Medical Qualifiers: Diabetes mellitus type: type 2 Qualified Code(s): E11.65 - Type 2 diabetes mellitus with hyperglycemia Plan: Currently on Jardiance 25 mg daily in a.m. and metformin a 1000 mg 1 tablet twice a day in addition to semaglutide 0.25 mg injected once a week. Reminded to get fasting labs done next week (2) Essential hypertension: Code(s): I10 - Essential (primary) hypertension Category: Medical Plan: Blood pressure at goal of less than 130/80. Continue lisinopril 20 mg and carvedilol 3.125 mg twice a day. Reinforced importance of following a low sodium diet, getting regular exercise, and lowering stress levels. (3) Mixed dyslipidemia: Code(s): E78.2 - Mixed hyperlipidemia Category: Medical Plan: Continue on rosuvastatin 5 mg 3 times a week, reinforced importance of following low-cholesterol diet and getting regular exercise. Reminded to get fasting labs done next week (4) Anxiety: Code(s): F41.9 - Anxiety disorder, unspecified Category: Medical Plan: Controlled on bupropion HCL SR 150 mg taken every other day, per patient, refill sent Orders: Orders Vitamin D 25-OH Total 02/29/24 E11.65 - Type 2 diabetes mellitus with hyperglycemia, E55.9 - Vitamin D deficiency, unspecified, E78.2 - Mixed hyperlipidemia, I10 - Essential (primary) hypertension, Z12.5 - Encounter for screening for malignant neoplasm of prostate, Z80.42 - Family history of malignant neoplasm of prostate Microalbumin, Random (w Creat) 02/29/24 E11.65 - Type 2 diabetes mellitus with hyperglycemia, E55.9 - Vitamin D deficiency, unspecified, E78.2 - Mixed hyperlipidemia, I10 - Essential (primary) hypertension, Z12.5 - Encounter for screening for malignant neoplasm of prostate, Z80.42 - Family history of malignant neoplasm of prostate Hemoglobin A1c 02/29/24 E11.65 - Type 2 diabetes mellitus with hyperglycemia, E55.9 - Vitamin D deficiency, unspecified, E78.2 - Mixed hyperlipidemia, I10 - Essential (primary) hypertension, Z12.5 - Encounter for screening for malignant neoplasm of prostate, Z80.42 - Family history of malignant neoplasm of prostate Basic Metabolic Panel Fasting 02/29/24 E11.65 - Type 2 diabetes mellitus with hyperglycemia, E55.9 - Vitamin D deficiency, unspecified, E78.2 - Mixed hyperlipidemia, I10 - Essential (primary) hypertension, Z12.5 - Encounter for screening for malignant neoplasm of prostate, Z80.42 - Family history of malignant neoplasm of prostate PSA,Total (Free>4and<10) 02/29/24 E11.65 - Type 2 diabetes mellitus with hyperglycemia, E55.9 - Vitamin D deficiency, unspecified, E78.2 - Mixed hyperlipidemia, I10 - Essential (primary) hypertension, Z12.5 - Encounter for screening for malignant neoplasm of prostate, Z80.42 - Family history of malignant neoplasm of prostate Lipid Panel 02/29/24 E11.65 - Type 2 diabetes mellitus with hyperglycemia, E55.9 - Vitamin D deficiency, unspecified, E78.2 - Mixed hyperlipidemia, I10 - Essential (primary) hypertension, Z12.5 - Encounter for screening for malignant neoplasm of prostate, Z80.42 - Family history of malignant neoplasm of prostate Alanine Aminotransferase 02/29/24 E11.65 - Type 2 diabetes mellitus with hyperglycemia, E55.9 - Vitamin D deficiency, unspecified, E78.2 - Mixed hyperlipidemia, I10 - Essential (primary) hypertension, Z12.5 - Encounter for screening for malignant neoplasm of prostate, Z80.42 - Family history of malignant neoplasm of prostate Aspartate Amino Transferase 02/29/24 E11.65 - Type 2 diabetes mellitus with hyperglycemia, E55.9 - Vitamin D deficiency, unspecified, E78.2 - Mixed hyperlipidemia, I10 - Essential (primary) hypertension, Z12.5 - Encounter for screening for malignant neoplasm of prostate, Z80.42 - Family history of malignant neoplasm of prostate Complete Blood Count Auto Diff 02/29/24 E11.65 - Type 2 diabetes mellitus with hyperglycemia, E55.9 - Vitamin D deficiency, unspecified, E78.2 - Mixed hyperlipidemia, I10 - Essential (primary) hypertension, Z12.5 - Encounter for screening for malignant neoplasm of prostate, Z80.42 - Family history of malignant neoplasm of prostate Medications: Changed From bupropion HCl SR 150 mg PO Q OTHER DAY To bupropion HCl SR 150 mg PO Q OTHER DAY 3 months 45 tabs 2RF
== END 2024-02-18 12:21 | disposition home or self-care (01) ==
PROVIDERS: PCP Internal Medicine; Visit Provider Internal Medicine
DX: E11.65 Type 2 diabetes mellitus with hyperglycemia (principal); I10 Essential (primary) hypertension; E78.2 Mixed hyperlipidemia; F41.9 Anxiety disorder, unspecified

== ENCOUNTER → 2024-02-18 11:19 | Outpatient (BNVA) | payer BC, SELFPAY | PROVIDERS: PCP Internal Medicine; Visit Provider Internal Medicine | DX: E11.65 Type 2 diabetes mellitus with hyperglycemia (principal); I10 Essential (primary) hypertension; E78.2 Mixed hyperlipidemia; F41.9 Anxiety disorder, unspecified; Z79.84 Long term (current) use of oral hypoglycemic drugs; Z79.899 Other long term (current) drug therapy | CPT/HCPCS: 96127 ==

== ENCOUNTER → 2024-03-03 07:46 | Outpatient (REF) | payer BC, SELFPAY ==
--- NOTE | 2024-03-03 07:49 | CA_ITS ---
Transthoracic Echocardiogram Patient (Last, First, Middle): Fan Lorenzo A Gender: Male Date of : 1955 Age: 68 Procedure Date: 03/03/2024 Procedure Type: Transthoracic Echocardiogram Location: OP Height: 172.72 cm Weight: 74.39 kg BSA: 1.88 m2 Heart Rate: bpm BP: 128 / 80 mmHg Communications Programmer: Referring MD: Jerry Vanegas MD [id number] Architect: Jerry Vanegas MD Symptoms: I45.10 - Unspecified right bundle-branch block Study Quality: Fair ECG Rhythm: Sinus Conclusions: - Normal left ventricular size and systolic function. There is mildly increased left ventricular wall thickness. The visually estimated ejection fraction is between 55-60%. - E/E prime ratio is between 8 and 15 consistent with indeterminate filling pressures. - The basal inferior segment is akinetic. - Normal right ventricular cavity size and systolic function. Findings Left Ventricle Normal left ventricular size and systolic function. There is mildly increased left ventricular wall thickness. The visually estimated ejection fraction is between 55-60%. There is evidence of regional wall motion abnormalities. Abnormal diastolic function is noted. Spectral Doppler is indicative of an impaired relaxation filling pattern. E/E prime ratio is between 8 and 15 consistent with indeterminate filling pressures. Wall Motion Rest Echo Findings The basal inferior segment is akinetic. Right Ventricle Normal right ventricular cavity size and systolic function. Atria The left atrium is normal in size. Aortic Valve There is a normal trileaflet aortic valve. There is no aortic valve stenosis. There is no aortic valve regurgitation. Mitral Valve The mitral valve appears normal. There is no mitral valve regurgitation. There is no mitral valve stenosis. Pulmonic Valve The pulmonic valve is likely normal. Tricuspid Valve Normal tricuspid valve structure. There is no tricuspid valve regurgitation. Normal right atrial pressure. There is no evidence of pulmonary hypertension. Great Vessels All visible segments of the aorta are normal in size. Venous The inferior vena cava is normal in size and collapses greater than 50% with inspiration. Pericardium/Pleural There is no evidence of pericardial effusion. Prior Study Comparison No significant change compared to prior study dated: 11/18/2023. Measurements 2D Linear Measurements IVSd: 1.11 0.6-0.9/0.6-1.0 cm LVIDd: 4.20 3.9-5.3/4.2-5.9 cm LVIDd Index: 2.23 2.4-3.2/2.2-3.1 cm/m2 LVIDs: 2.83 2.0-3.6 cm LVPWd: 1.13 0.7-1.1 cm Ao Root: 3.10 2.1-3.5 cm LA Diam: 3.60 2.7-3.8/3.0-4.0 cm LAIDs Index: 1.91 1.5-2.3 cm/m2 LV Mass: 200.72 67-162/88-224 g LV Mass Index: 106.77 43-95/49-115 g/m2 LVOT Diam: 2.00 3.0+(-)1.3 cm 2D Systolic Function EF 4C: 59.00 >55% EF 2C: 52.00 >55% EF BiP: 56.10 >55% Mitral Valve MV Pk E: 0.47 MV PK A: 0.80 MV Decel Time: 134.00 E/A: 0.60 E'Lateral: 5.11 E'Medial: 2.61 E/E' Med: 18.00 E/E' Lat: 9.20 PHT: 39.00 MVA PHT: 5.64 Decel Lipscomb: 3.52 Aortic Valve AoV Pk Cal: 1.25 AoV Mn Cal: 0.88 AoV VTI: 0.23 AoV Pk Grad: 6.00 Aov Mn Grad: 4.00 LANI Cont.VTI: 1.70 LVOT LVOT Pk Cal: 0.77 LVOT Mn Cal: 0.48 LVOT VTI: 0.13 LVOT Pk Grad: 2.00 LVOT Mn Grad: 1.00 LVOT Diam: 2.00 LVOT Area: 3.14 Diastolic Function MV Pk E: 0.47 MV Pk A: 0.80 E/A: 0.60 E'Medial: 2.61 E/E' Med: 18.00 E' Laterial: 5.11 E/E' Lat: 9.20 Right Ventricle TAPSE (mm): 17.00 TVS' Cal: 10.00 Tricuspid Valve TR Pk Cal: 1.73 TR Pk Grad: 12.00 RA Press: 3.00 RVSP: 15.00 Great Vessels Aorta Ao Root-2D: 3.10 2.0-3.7 cm Ao Asc: 2.40 2.1-3.4 cm Pulmonary Valve PV Pk Cal: 1.14 Peak PV Grad: 5.00 Updated in Other Vendor System with Status of Final Jerry Vaneags MD electronically signed on 03/04/2024 8:28:29 PM with status of Final
== END ==
LOC: HO.CARD 07:46
PROVIDERS: PCP Internal Medicine; Visit Provider Internal Medicine Cardiovascular Disease
DX: I45.10 Unspecified right bundle-branch block (principal)
CPT/HCPCS: 93306

== ENCOUNTER → 2024-03-03 07:49 | Outpatient (BNV) | payer BC, SELFPAY | PROVIDERS: PCP Internal Medicine; Visit Provider Internal Medicine Cardiovascular Disease | DX: I51.89 Other ill-defined heart diseases (principal); R93.1 Abnormal findings on diagnostic imaging of heart and coronary circulation | CPT/HCPCS: 93306 ==

== ENCOUNTER 2024-03-26 06:43 | Outpatient (REF) | payer BC, SELFPAY ==
[2024-03-26 10:09] LABS: MANUAL DIFF FLAG NO
[2024-03-26 10:10] LABS: Estimated Average Glucose 194 mg/dL; Hemoglobin A1C 269.0913 umol/L; Hemoglobin A1c % 8.4 % (<6.0); Total Hemoglobin (HGBA1C) 3923.0824 umol/L
[2024-03-26 10:14] LABS: Basophils Absolute Auto 0.1 X10*3/uL (0.0-0.2); Eosinophils Absolute Auto 0.4 X10*3/uL (0.0-0.4); Eosinophils Percent Auto 4.3 % (0-4); Hematocrit 48.7 % (42.0-52.0); Hemoglobin 15.9 g/dl (14.0-18.0); Imm Gran Abs Auto 0.05 X10*3/uL (0.00-0.03); Imm Gran Pct Auto 0.5 % (0.0-0.4); Lymphocytes Absolute Auto 2.4 X10*3/uL (1.2-4.9); Lymphocytes Percent Auto 22.9 % (20-40); Mean Corpuscular HGB Conc 32.6 g/dl (31.0-36.0); Mean Corpuscular Hemoglobin 28.9 pg (27.0-33.0); Mean Corpuscular Volume 88.5 fL (80.0-98.0); Mean Platelet Volume 11.9 fL (9.4-12.4); Monocytes Percent Auto 9.5 % (2-11); Neutrophils Absolute Auto 6.4 x10*3/uL (2.0-8.3); Neutrophils Percent Auto 61.8 % (45-73); Platelet Count 242 X10*3/uL (160-400); Red Cell Distribution Width 13.5 % (11.0-16.0); White Blood Count 10.3 X10*3/uL (4.8-10.8)
[2024-03-26 10:30] LABS: Alanine Aminotransferase 25 U/L (0-40); Anion Gap 16 (12-20); Aspartate Amino Transferase 34 U/L (5-37); Blood Urea Nitrogen 28 mg/dL (9-16); Calcium 9.3 mg/dL (8.4-10.2); Carbon Dioxide 20 mmol/L (22-29); Chloride 106 mmol/L (96-108); Cholesterol 170 mg/dL (<200); Estimated Glomerular Filt Rate > 60; Glucose Fasting 186 mg/dL (60-99); HDL Cholesterol 35 mg/dL (>40); LDL Cholesterol Calculated 59 mg/dL (<100); Sodium 138 mmol/L (135-145); Triglycerides 382 mg/dL (<150)
[2024-03-26 10:31] LABS: Creatinine Urine 56.92 mg/dL; Microalbum/Creatinine Ratio Ur 29.8 ug/mg cr (<30)
[2024-03-26 10:37] LABS: PSA,Total (Free>4and<10) 2.48 ng/mL (0.00-4.00)
[2024-03-26 10:39] LABS: Vitamin D 25-OH Total 62.8 ng/mL (>30)
== END 2024-03-26 06:44 | disposition home or self-care (01) ==
LOC: HO.HMGCLDS 06:43
PROVIDERS: PCP Internal Medicine; Visit Provider Internal Medicine
DX: E55.9 Vitamin D deficiency, unspecified (principal); E11.65 Type 2 diabetes mellitus with hyperglycemia; E78.2 Mixed hyperlipidemia; Z80.42 Family history of malignant neoplasm of prostate; I10 Essential (primary) hypertension; Z12.5 Encounter for screening for malignant neoplasm of prostate
CPT/HCPCS: 36415; 80048; 80061; 82043; 82306; 82570; 83036; 84153; 84450; 84460; 85025

== ENCOUNTER 2024-06-13 07:13 | Outpatient (REF) | payer BC, SELFPAY ==
[2024-06-13 10:06] LABS: Estimated Average Glucose 189 mg/dL; Hemoglobin A1C 278.8377 umol/L; Hemoglobin A1c % 8.2 % (<6.0); Total Hemoglobin (HGBA1C) 4197.6036 umol/L
[2024-06-13 10:15] LABS: Alanine Aminotransferase 26 U/L (0-40); Anion Gap 15 (12-20); Aspartate Amino Transferase 27 U/L (5-37); Blood Urea Nitrogen 28 mg/dL (9-16); Calcium 9.7 mg/dL (8.4-10.2); Carbon Dioxide 22 mmol/L (22-29); Chloride 107 mmol/L (96-108); Cholesterol 183 mg/dL (<200); Estimated Glomerular Filt Rate > 60; Glucose Fasting 184 mg/dL (60-99); HDL Cholesterol 43 mg/dL (>40); LDL Cholesterol Calculated 91 mg/dL (<100); Potassium 4.7 mmol/L (3.3-5.1); Sodium 139 mmol/L (135-145); Triglycerides 248 mg/dL (<150)
[2024-06-13 11:06] LABS: Microalbum/Creatinine Ratio Ur 19.2 ug/mg cr (<30)
== END 2024-06-13 07:14 | disposition home or self-care (01) ==
LOC: HO.HMGCLDS 07:13
PROVIDERS: PCP Internal Medicine; Visit Provider Internal Medicine
DX: E11.65 Type 2 diabetes mellitus with hyperglycemia (principal); E78.2 Mixed hyperlipidemia; I10 Essential (primary) hypertension
CPT/HCPCS: 36415; 80048; 80061; 82043; 82570; 83036; 84450; 84460

== ENCOUNTER → 2024-07-14 08:14 | Outpatient (REF) | payer BC, SELFPAY | LOC: HO.CARD 08:14 | PROVIDERS: PCP Internal Medicine; Visit Provider Internal Medicine Cardiovascular Disease | DX: R55 Syncope and collapse (principal) | CPT/HCPCS: 93242 ==

== ENCOUNTER → 2024-07-14 08:19 | Outpatient (BNV) | payer BC, SELFPAY | PROVIDERS: PCP Internal Medicine; Visit Provider Internal Medicine Cardiovascular Disease | DX: I49.1 Atrial premature depolarization (principal); I49.3 Ventricular premature depolarization | CPT/HCPCS: 93244 ==

== ENCOUNTER 2024-07-21 09:23 | Outpatient (AMB) | payer BC, SELFPAY ==
[2024-07-21 09:36] VITALS: BP 157/88; PULSE 88; BMI 26.8
--- NOTE | 2024-07-21 09:36 | MHC.OFFVIS ---
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 Required: No Allergies barium sulfate Allergy (Intermediate, Verified 07/21/24 09:39) rash varenicline Allergy (Intermediate, Verified 07/21/24 09:39) rash Medication List - Last Reconciled 07/21/24 by Breanna Malone, [employer]PLICATION[employer] SPECIALIST-C bupropion HCl SR 150 mg PO Q OTHER DAY 3 months carvedilol 3.125 mg PO BID fluticasone propionate 50 mcg/actuation (Allergy Relief (fluticasone)) 1 spray intranasal BID Jardiance (empagliflozin) 25 mg PO QAM NS lisinopril 20 mg PO DAILY loratadine (Allergy Relief (loratadine)) 10 mg PO DAILY PRN metformin 1,000 mg PO BID 90 days omeprazole 10 mg PO DAILY Ozempic (semaglutide) 0.25 mg (0.368 mL) subcut QWEEK NS rosuvastatin 5 mg PO 3XW 90 days HPI HPI f/up-holter per km: Details: Fan is a 68-year-old male with past medical history of hypertension, hyperlipidemia, diabetes, right bundle branch block, syncope, abnormal finding on echo who presents for follow-up after recent Holter monitor. Today he reports he has been feeling lightheaded at times. He has not had any recurrent syncope. He has been increasing his fluid intake. No shortness of breath, PND, orthopnea or edema. No chest discomfort at rest or with activity. He has various muscle complaints along his arms and back. 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 He handed in the Holter monitor today. Taking meds as directed. [facility] Medical History Syncope History of right inguinal hernia Hx of syncope (~2021) Anxiety Vitamin D deficiency Rash and nonspecific skin eruption RBBB (right bundle branch block) Sinus tachycardia by electrocardiogram Mixed dyslipidemia Hx of skin cancer, basal cell Epiploic appendagitis Seasonal allergic rhinitis Hypertriglyceridemia Family history of prostate cancer Prostate cancer screening Essential hypertension Diabetes mellitus with hyperglycemia, without long-term current use of insulin Surgical History History of esophagogastroduodenoscopy (EGD) History of inguinal hernia repair History of colonoscopy H/O arthroscopy of shoulder History of basal cell carcinoma excision History of tonsillectomy Family History Father Stroke Aneurysm Cancer of prostate Mother Asbestos exposure Lung cancer Smoker Maternal Grandfather No problems noted. Maternal Grandmother No problems noted. Paternal Grandfather No problems noted. Paternal Grandmother No problems noted. Maternal Aunt Diabetes mellitus Sister No problems noted. Social History Household Members: Significant Other Housing: House Are you a primary urgent care nurse practitioner to a significant other at home: No Do you presently have visiting nurse or other home services: No 75 years or older and lives alone: No Alcohol intake: current Alcohol intake frequency: a few times a week Alcohol type: wine Patient Tobacco Use Status: Former Tobacco user Tobacco use type: Cigarette e-Cigarette/Vaping Use: Never Used Substance Use Type: Marijuana service: No Current occupational status: employed Cognitive needs: No Hearing needs: No Vision needs: Yes Review of Systems Const All systems reviewed & are unremarkable except as noted in HPI and below ENT Details: sinus congestion, feels spacey Reports dizziness Card Denies chest pain, Denies chest pain at rest, Denies chest pain with activity, Denies rapid heart rate, Denies pedal edema, Denies edema, Denies leg edema, Denies lightheadedness, Denies palpitations, Denies dyspnea, Denies dyspnea on exertion and Denies orthopnea Resp Denies cough, Denies dyspnea and Denies dyspnea on exertion GI Denies hematochezia and Denies change in stool character Musc Denies abnormal gait, Denies limited range of motion, Denies muscle cramps, Denies muscle weakness, Denies numbness, Denies radiating pain into limb, Denies stiffness and Denies tingling Neuro Denies abnormal gait, Reports dizziness, Denies numbness and Denies tingling Endo Denies palpitations Physical Exam Vital Signs: Last Vital Signs Pulse 91 07/21/24 09:47 BP 148/90 H 07/21/24 09:47 BMI result Body Mass Index 26.8 Const General: cooperative, healthy appearing, comfortable and no acute distress Orientation/consciousness: patient oriented x3 Neck Neck: Yes normal visual inspection Resp Effort & Inspection: normal respiratory effort Auscultation: clear to auscultation bilaterally, no rales, no rhonchi and no wheezes Cardio Rate: regular rate Rhythm: regular rhythm Heart sounds: S1 normal heart sound present, S2 normal heart sound present, no gallops, no murmurs and no rubs Neuro General: patient oriented x3 Extrem General: Yes normal to inspection Psych Appearance: grossly normal Mental Status: mental status grossly normal Speech and movement: Normal speech and movement present Assessment & Plan Assessment & Plan (1) Syncope: Code(s): R55 - Syncope and collapse Category: Medical Plan: History of syncope in the past which was thought would to be orthostatic in nature. In May he had an episode of near-syncope with patient report that EMS said his heart rate and blood pressure were low. He was monitored overnight at [facility] without cardiac findings. His last echocardiogram 03/03/2024 showed EF 55-60%, basal inferior akinetic which was unchanged from prior echo. He underwent a Holter monitor however results are not available at the time of this visit. He has had some lightheadedness but no recurrent syncopal events since that time. Instructed him to maintain good hydration, recognize symptoms of presyncope and sit/lay down. Emergency care if needed for recurrent episodes. Cardiology follow-up currently scheduled for January 2025 however will be sooner if Holter shows concerning findings. (2) Sinus tachycardia: Code(s): R00.0 - Tachycardia, unspecified Category: Medical Plan: History of sinus tachycardia in the past. Pulse rate today is normal. He is not reporting heart palpitations. He is on carvedilol which I will continue. (3) RBBB (right bundle branch block): Code(s): I45.10 - Unspecified right bundle-branch block Category: Medical Plan: Noted on EKGs (4) Essential hypertension: Code(s): I10 - Essential (primary) hypertension Category: Medical Plan: Mildly elevated at this time which could be related to anxiety and being at this visit. Instructed him to periodically check blood pressures at home and call me if his systolic readings are running greater than 140. Continue lisinopril and carvedilol. (5) Abnormal echocardiogram findings without diagnosis: Code(s): R93.1 - Abnormal findings on diagnostic imaging of heart and coronary circulation Category: Medical Plan: Previous cardiac evaluation following syncopal event 2021 included an echocardiogram done 11/17/2021 showed EF 50-55%, basal inferior wall akinetic. This was followed by nuclear stress test 12/08/2021 which showed normal myocardial perfusion imaging. He has no reports of anginal sounding symptoms. He does have multiple cardiac risk factors including hypertension, hyperlipidemia, diabetes. He needs ongoing risk factor modification. More recent echo still shows the basal inferior wall motion abnormality without change. This was reviewed with him. In the absence of symptoms will continue with risk factor modification. Plan Time spent on chart review, documentation, interview, assessment Coding Level of Care Code Est Pt Level 4 (02431) Complex EM visit Add On G2211 Diagnoses Syncope R55 Sinus tachycardia R00.0 RBBB (right bundle branch block) I45.10 Essential hypertension I10 Abnormal echocardiogram findings without diagnosis R93.1 Time Spent (min) 28
[2024-07-21 09:44] VITALS: BP 153/86; PULSE 89
[2024-07-21 09:47] VITALS: BP 148/90; PULSE 91
== END 2024-07-21 10:03 | disposition home or self-care (01) ==
PROVIDERS: PCP Internal Medicine; Visit Provider Nurse Practitioner Family
DX: R55 Syncope and collapse (principal); R00.0 Tachycardia, unspecified; I45.10 Unspecified right bundle-branch block; I10 Essential (primary) hypertension; R93.1 Abnormal findings on diagnostic imaging of heart and coronary circulation
CPT/HCPCS: 99214

== ENCOUNTER 2024-07-22 11:26 | Outpatient (AMB) | payer BC, SELFPAY ==
[2024-07-22 11:34] VITALS: BP 140/78; PULSE 82; RESP 16; TEMP 36.5; O2SAT 98; BMI 27.0
--- NOTE | 2024-07-22 11:34 | MHC.PC.OV ---
Vital Signs 07/22/24 11:34 Height 5 ft 6 in Weight 167 lb BMI 27.0 BP 140/78 H Blood Pressure Location Rt brachial Position Sitting Respiration 16 Pulse 82 Pulse Source Pulse Oximeter Temp 97.7 F Temp Source Oral Pulse Oximetry (%) 98 Oxygen Delivery Method Room Air Intake Visit Reasons: 5 months f/up Intake Note: Pt is here today for his 5mo. f/u Allergies barium sulfate Allergy (Intermediate, Verified 07/22/24 11:41) rash varenicline Allergy (Intermediate, Verified 07/22/24 11:41) rash Medication List - Last Reconciled 07/22/24 by Dianna Huitron MD bupropion HCl SR 150 mg PO Q OTHER DAY 3 months carvedilol 3.125 mg PO BID fluticasone propionate 50 mcg/actuation (Allergy Relief (fluticasone)) 1 spray intranasal BID Jardiance (empagliflozin) 25 mg PO QAM NS lisinopril 20 mg PO DAILY loratadine (Allergy Relief (loratadine)) 10 mg PO DAILY PRN metformin 1,000 mg PO BID 90 days omeprazole 10 mg PO DAILY Ozempic (semaglutide) 0.25 mg (0.368 mL) subcut QWEEK NS rosuvastatin 5 mg PO 3XW 90 days Tobacco use date assessed: 07/22/24 Fall risk assessment: 1 Fall in past year Last assessed Fall Risk: 07/22/24 Dental Screening Dental Screen Date: 07/22/24 Did you have a dental visit in the last 12 months?: No Did you have a dental problem in the last 6 months where you did not have access to dental care?: No Was dental information given to patient?: Patient has dentist HPI 5 months f/up HPI Details Sees 8-year-old male with history of hypertension, diabetes mellitus and hyperlipidemia, here today for his follow-up. He has been taking his medications as directed, but admits to not being fully compliant with diet and has not been exercising regularly. [facility] Medical History (Updated 07/27/24 @ 22:52 by Dianna Huitron MD) Syncope History of right inguinal hernia Hx of syncope (~2021) Anxiety Vitamin D deficiency Rash and nonspecific skin eruption RBBB (right bundle branch block) Sinus tachycardia by electrocardiogram Mixed dyslipidemia Hx of skin cancer, basal cell Epiploic appendagitis Seasonal allergic rhinitis Hypertriglyceridemia Family history of prostate cancer Prostate cancer screening Essential hypertension Diabetes mellitus with hyperglycemia, without long-term current use of insulin Surgical History History of esophagogastroduodenoscopy (EGD) History of inguinal hernia repair History of colonoscopy H/O arthroscopy of shoulder History of basal cell carcinoma excision History of tonsillectomy Family History Father Stroke Aneurysm Cancer of prostate Mother Asbestos exposure Lung cancer Smoker Maternal Grandfather No problems noted. Maternal Grandmother No problems noted. Paternal Grandfather No problems noted. Paternal Grandmother No problems noted. Maternal Aunt Diabetes mellitus Sister No problems noted. Social History Household Members: Significant Other Housing: House Are you a primary health care / medical job titles to a significant other at home: No Do you presently have visiting nurse or other home services: No 75 years or older and lives alone: No Alcohol intake: current Alcohol intake frequency: a few times a week Alcohol type: wine Patient Tobacco Use Status: Former Tobacco user Tobacco use type: Cigarette e-Cigarette/Vaping Use: Never Used Substance Use Type: Marijuana service: No Current occupational status: employed Cognitive needs: No Hearing needs: No Vision needs: Yes Questionnaire PHQ-9 Over the last 2 weeks, how often have you been bothered by any of the following problems? 1. Little interest or pleasure in doing things: not at all 2. Feeling down, depressed, or hopeless: not at all 3. Trouble falling or staying asleep, or sleeping too much: not at all 4. Feeling tired or having little energy: not at all 5. Poor appetite or overeating: not at all 6. Feeling bad about yourself - or that you are a failure or have let yourself or your family down: not at all 7. Trouble concentrating on things, such as reading the newspaper or watching television: not at all 8. Moving or speaking so slowly that other people could have noticed. Or the opposite - being so fidgety or restless that you have been moving around a lot more than usual: not at all 9. Thoughts that you would be better off or of hurting yourself in some way: not at all Total score: 0 Depression Screening Interpretation: Negative Depression Screening Done: Yes 80436 - PHQ-9 Billing: Yes Source: Developed by Drs. Deven Carrizales, Nela Rowe, Deandre Phipps and colleagues, with an educational emili from [employer]. Thrive Questionnaire Date Thrive assessed: 07/22/24 I am a: Patient What is your living situation today?: I have a steady place to live Within the past 12 months, did the food you bought not last and you didn't have the money to get more?: I choose not to answer this question Within the past 12 months, did you worry whether your food would run out before you got money to buy more?: I choose not to answer this question Do you have trouble paying for medicines?: I choose not to answer this question Do you have trouble getting transportation to medical appointments?: I choose not to answer this question Do you have trouble paying your heating and electricity bill?: I choose not to answer this question Do you have trouble taking care of your child, family member or friend?: I choose not to answer this question Do you have trouble with day-to-day activities such as bathing, preparing meals, shopping, managing finances, etc.?: I choose not to answer this question Are you currently unemployed and looking for a job?: I choose not to answer this question Are you interested in more education?: I choose not to answer this question Please select the resources that you would like help with: None Currently or been in a relationship where the following occur: I choose not to answer THRIVE Score: 0 AUDIT C Alcohol Use Questionnaire (AUDIT-C) 1. How often do you have a drink containing alcohol?: Never Total Score: 0 JE-7 AMB Questionnaire JE-7 Date JE - 7 assessed: 07/22/24 Feeling nervous, anxious, or on edge: 0 = Not at all Not being able to stop or control worryin = Not at all Worrying too much about different things: 0 = Not at all Trouble relaxin = Not at all Being so restless that it is hard to sit still: 0 = Not at all Becoming easily annoyed or irritable: 0 = Not at all Feeling afraid as if something awful might happen: 0 = Not at all Total JE-7 score (0-4 normal; 5-9 mild; 10-14 moderate; 15-21 severe): 0 Source: Developed by Drs. Deven Carrizales, Nela Rowe, Deandre Phipps and colleagues, with an educational emili from [employer]. JE-7 Assessment Billing JE-7 Assessment Tool: JE-7 Assessment 95836 Review of Systems Const All systems reviewed & are unremarkable except as noted in HPI and below Eyes Denies change in vision ENT Reports dizziness Card Denies chest pain, Denies rapid heart rate, Denies edema, Denies lightheadedness, Denies palpitations and Denies dyspnea Resp Denies cough and Denies dyspnea GI Reports abdominal pain (intermittent ), Denies melena, Reports bloating, Denies hematochezia and Denies dyspepsia Musc Denies abnormal gait, Denies muscle cramps, Denies muscle weakness and Denies stiffness Neuro Denies abnormal gait and Reports dizziness Endo Denies palpitations Physical exam (Primary Care) Vital Signs: Last Vital Signs Temp 97.7 F 07/22/24 11:34 Pulse 82 07/22/24 11:34 Resp 16 07/22/24 11:34 BP 140/78 H 07/22/24 11:34 Pulse Ox 98 07/22/24 11:34 Oxygen Delivery Method Room Air 07/22/24 11:34 BMI result Body Mass Index 27.0 Tobacco/Smoking Status: Tobacco use Status Tobacco use date assessed 07/22/24 07/22/24 11:39 Patient Tobacco Use Status Former Tobacco user 07/22/24 11:39 Tobacco use type Cigarette 07/22/24 11:39 e-Cigarette/Vaping Use Never Used 07/22/24 11:39 PHQ-9: PHQ-9 Score PHQ-9: Total score 0 07/22/24 11:45 Depression Screening Interpretation: Negative Thrive Assessment: Date of Thrive Assessment Date Thrive assessed 07/22/24 07/22/24 11:39 Currently or been in a relationship where the following occur: I choose not to answer Const General: no acute distress Nutritional Appearance: overweight Orientation/consciousness: patient oriented x3 HENMT Head: Yes normal to inspection Ears: external ears normal General nose exam: Normal external nose present Mouth: oropharynx normal and moist mucous membranes Neck Neck: Yes supple Resp Effort & Inspection: normal respiratory effort Auscultation: clear to auscultation bilaterally Cardio Rhythm: regular rhythm Heart sounds: S1 normal heart sound present and S2 normal heart sound present GI Palpation (GI): Soft to palpation, nontender and no guarding Auscultation: normal bowel sounds Neuro General: patient oriented x3 Extrem General: Yes full ROM, Yes normal exam except as noted, Yes no joint enlargement, Yes no clubbing, cyanosis or edema, Yes no calf tenderness and Yes normal gait Results Reviewed Results Reviewed: Laboratory Tests 06/13/24 06/13/24 07:29 09:29 Estimat Average Glucose 189 Hemoglobin A1c % 8.2 H Urine Creatinine 72.80 Urine Microalbumin 14.0 Microalb/Creat Ratio 19.2 Name: Fan Lorenzo Jr Age/Sex: 68/M : 1955 Unit#: [id number] Attend Dr: Dianna Huitron MD Re06/13/24 Status: DEP REF Location: [facility] Disch: SPEC : [id number] AYSHA: 06/13/24 STATUS: COMP REQ : [id number] RECD: 06/13/[address]: Dianna Huitron MD COMP: 06/13/24 ENTERED: 06/13/24 [facility] DR: ORDERED: Met Prof Fast, AST, ALT, Lipid Panel Test Result Flag Reference Sodium 139 135-145 mmol/L Potassium 4.7 3.3-5.1 mmol/L CL 107 96-108 mmol/L CO2 22 22-29 mmol/L Gap 15 12-20 BUN 28 H 9-16 mg/dL Creat 1.09 0.5-1.4 mg/dL eGFR > 60 Chronic Kidney Disease: Estimated GFR < 60 mL/min/1.73m2 Severe Kidney Disease: Estimated GFR < 15 mL/min/1.73m2 FBS 184 H 60-99 mg/dL A fasting glucose of 126 mg/dl or greater on more than one occasion is considered diagnostic of diabetes. CA 9.7 8.4-10.2 mg/dL AST (GOT) 27 5-37 U/L ALT (GPT) 26 0-40 U/L Triglyceride 248 H <150 mg/dL Desirable Triglyceride: less than 150 mg/dL Borderline High Triglyceride 150-199 mg/dL High Triglyceride: 200-499 mg/dL Very High Triglyceride: greater than or equal to 5OO mg/dL Cholesterol 183 <200 mg/dL Desirable Cholesterol: less than 200 mg/dL Borderline High Cholesterol: 200-239 mg/dL High Cholesterol: greater than 239 mg/dL LDL Calculated 91 <100 mg/dL Desirable LDL: less than 100 mg/dL Near Optimal/Above Optimal LDL: 110-129 mg/dL Borderline High LDL: 130-159 mg/dL High LDL: 160-189 mg/dL Very High LDL: greater than or equal to 190 mg/dL HDL 43 >40 mg/dL Desirable HDL: greater than 40 mg/dL Note: This HDL assay may give artificially low results in patients with liver disease. Coding Level of Care Code Est Pt Level 4 (90016) Complex EM visit Add On G2211 Diagnoses Type 2 diabetes mellitus with hyperglycemia, without long-term current use of insulin E11.65 Diabetes mellitus type: type 2 Mixed dyslipidemia E78.2 Abdominal gas pain R14.1 Additional Codes PHQ-9 - 58052 - PHQ-9 Billing: Yes ([id number]) JE-7 Assessment Billing - JE-7 Assessment Tool: JE-7 Assessment 28822 ([id number]) Assessment & Plan Assessment & Plan (1) Diabetes mellitus with hyperglycemia, without long-term current use of insulin: Code(s): E11.65 - Type 2 diabetes mellitus with hyperglycemia Category: Medical Qualifiers: Diabetes mellitus type: type 2 Qualified Code(s): E11.65 - Type 2 diabetes mellitus with hyperglycemia Plan: Diabetes mellitus poorly controlled with latest hemoglobin A1c at 8.2%. Will continue on metformin as twice a day, Jardiance 25 mg in the morning, and Ozempic dose increased to 0.5 mg subcutaneously given once a week. Reinforced importance of following recommended diet and getting regular exercise. (2) Mixed dyslipidemia: Code(s): E78.2 - Mixed hyperlipidemia Category: Medical Plan: Recent fasting lipid panel are within normal limits, continued on rosuvastatin 5 mg taken 1 tablet 3 times a week. In addition to adherence to healthy eating habits and regular exercise. (3) Abdominal gas pain: Code(s): R14.1 - Gas pain Plan: Trial of dicyclomine 20 mg , taken 1 tablet twice a day as needed for, mg irregular bowel movements Medications: New dicyclomine 20 mg PO BID PRN 30 tabs 0RF abdominal pain Ozempic (semaglutide) 0.5 mg (0.736 mL) subcut QWEEK 30 days 3 mL 4RF NS E11.65 - Type 2 diabetes mellitus with hyperglycemia Discontinued Ozempic (semaglutide) Discontinued Reason: Doctor's Order 0.25 mg (0.368 mL) subcut QWEEK 3 mL 1RF NS
== END 2024-07-22 12:09 | disposition home or self-care (01) ==
LOC: HO.HMCC 11:27
PROVIDERS: PCP Internal Medicine; Visit Provider Internal Medicine
DX: E11.65 Type 2 diabetes mellitus with hyperglycemia (principal); E78.2 Mixed hyperlipidemia; R14.1 Gas pain

== ENCOUNTER → 2024-07-22 11:26 | Outpatient (BNVA) | payer BC, SELFPAY | PROVIDERS: PCP Internal Medicine; Visit Provider Internal Medicine | DX: E11.65 Type 2 diabetes mellitus with hyperglycemia (principal); E78.2 Mixed hyperlipidemia; R14.1 Gas pain; Z79.84 Long term (current) use of oral hypoglycemic drugs; Z79.899 Other long term (current) drug therapy | CPT/HCPCS: 96127 ==

== ENCOUNTER 2024-09-14 07:50 | Observation (INO) | payer BC, SELFPAY ==
[2024-09-14] VITALS (7 sets, daily range): BP systolic 118–172; BP diastolic 63–100; PULSE 85–100; RESP 16–20; TEMP 36.4–37; O2SAT 94–97; BMI 27.0; BMI 29.8
--- NOTE | 2024-09-14 | ECG_ITS ---
Test Reason : SYNCOPE Blood Pressure : */* mmHG Vent. Rate : 93 BPM Atrial Rate : 93 BPM P-R Int : 204 ms QRS Dur : 160 ms QT Int : 418 ms P-R-T Axes : 15 238 11 degrees QTcB Int : 519 ms Normal sinus rhythm Right bundle branch block Possible Lateral infarct (cited on or before 16-Nov-2021) Inferior infarct , age undetermined Abnormal ECG When compared with ECG of 12-Dec-2023 13:24, Premature ventricular complexes are no longer Present Referred By: Generic ED Physician Electronically Signed By: MAVERICK CAGLE MD
--- NOTE | ~2024-09-14 | CT_ITS ---
CLINICAL HISTORY: trauma CT cervical spine without contrast Comparison: None Findings: No fracture or acute malalignment. Mild multilevel degenerative changes with disc space narrowing throughout the cervical spine. The facet joints are normally imbricated. No prevertebral soft tissue edema. Lung apicies demonstrate no acute process. Impression: Mild multilevel degenerative changes without evidence of acute fracture or acute malalignment. This document has been electronically signed by: Tirso Castillo MD on 09/14/2024 09:05:58
--- NOTE | ~2024-09-14 | CT_ITS ---
CLINICAL HISTORY: trauma CT head without contrast Comparison: CT/SR - CT HEAD/BRAIN WO CON - 11/17/21 00:26 EDT Findings: No evidence of acute territorial infarct. Right-sided Virchow Jeremi space noted There is mild scattered low density in the periventricular and subcortical white matter. Mild diffuse volume loss is noted. No hydrocephalus. No hemorrhage, mass effect, mass lesion or midline shift. No abnormal extra-axial fluid. No calvarial fracture. Paranasal sinuses and mastoid air cells are clear. Impression: No evidence of an acute intracranial process. Chronic changes as detailed. This document has been electronically signed by: Tirso Castillo MD on 09/14/2024 09:06:48
--- NOTE | 2024-09-14 08:19 | ED_ITS ---
HPI - Syncope General Chief Complaint: Syncope Stated Complaint: SYNCOPE,HIT HEAD,+LOC,BP 180/85 172/100 PER EMS Time Seen by Provider: 09/14/24 08:13 Source: patient and EMS Mode of arrival: EMS History of Present Illness HPI narrative: This is a 69 years old the patient with a history of diabetes, right bundle branch block, essential hypertension presented to the emergency department via ambulance after a syncopal episode patient stated that he woke up when downstairs he was taking his medicine he felt lightheaded and fell to the ground hit his head to the ground. He called 911 arrived here by ambulance denies any chest pain shortness of breath any fever any vomiting MD complaint: loss of consciousness and felt faint Onset (ago): hour(s) (2) Prodromal symptoms: lightheaded Witnessed: No Context: at rest Injuries sustained associated with event: none Current symptoms: none Treatments prior to arrival: none Related Data Previous Rx's ?Medication ?Instructions ?Recorded fluticasone propionate 50 1 spray intranasal BID Rhinorrhea 06/20/22 mcg/actuation nasal and nasal congestion #16 grams spray,suspension (Allergy Relief (fluticasone)) loratadine 10 mg tablet (Allergy 10 mg PO DAILY PRN allergy 06/20/22 Relief (loratadine)) symptoms #30 tabs bupropion HCl 150 mg tablet,12 hr 150 mg PO Q OTHER DAY 3 months #45 02/18/24 sustained-release tabs rosuvastatin 5 mg tablet 5 mg PO 3XW 90 days #39 tabs 03/16/24 metformin 1,000 mg tablet 1,000 mg PO BID 90 days #180 tabs 05/12/24 carvedilol 3.125 mg tablet 3.125 mg PO BID #180 tabs 05/28/24 Ozempic 0.25 mg or 0.5 mg (2 mg/3 0.5 mg (0.736 mL) subcut QWEEK 30 07/22/24 mL) subcutaneous pen injector days #3 mL (semaglutide) dicyclomine 20 mg tablet 20 mg PO BID PRN abdominal pain 07/22/24 #30 tabs Jardiance 25 mg tablet 25 mg PO QAM #90 tabs 08/05/24 (empagliflozin) lisinopril 20 mg tablet 20 mg PO DAILY #90 tabs 08/05/24 omeprazole 10 mg capsule,delayed 10 mg PO DAILY #90 caps 08/27/24 release Allergies Allergy/AdvReac Type Severity Reaction Status Date / Time barium sulfate Allergy Intermediate rash Verified 09/14/24 08:03 [email or web address] Allergy Intermediate rash Verified 09/14/24 08:03 Review of Systems 2 Constitutional: Constitutional: Reports no additional constitutional complaints Cardiovascular: Cardiovascular: Reports no additional cardiovascular complaints, Denies chest pain at rest and Denies dyspnea Respiratory: Respiratory: Denies dyspnea PMFSH Past Medical History Attestation statement: The following information was validated with the patient. Medical History Syncope History of right inguinal hernia Hx of syncope (~2021) Anxiety Vitamin D deficiency Rash and nonspecific skin eruption RBBB (right bundle branch block) Sinus tachycardia by electrocardiogram Mixed dyslipidemia Hx of skin cancer, basal cell Epiploic appendagitis Seasonal allergic rhinitis Hypertriglyceridemia Family history of prostate cancer Prostate cancer screening Essential hypertension Diabetes mellitus with hyperglycemia, without long-term current use of insulin Surgical History History of esophagogastroduodenoscopy (EGD) History of inguinal hernia repair History of colonoscopy H/O arthroscopy of shoulder History of basal cell carcinoma excision History of tonsillectomy Family History Family History Father Stroke Aneurysm Cancer of prostate Mother Asbestos exposure Lung cancer Smoker Maternal Grandfather No problems noted. Maternal Grandmother No problems noted. Paternal Grandfather No problems noted. Paternal Grandmother No problems noted. Maternal Aunt Diabetes mellitus Sister No problems noted. Social History Social History Household Members: Significant Other Housing: House Are you a primary care program resident to a significant other at home: No Do you presently have visiting nurse or other home services: No Alcohol intake: current Alcohol intake frequency: a few times a week Alcohol type: wine Patient Tobacco Use Status: Former Tobacco user Tobacco use type: Cigarette Smoked in Last 30 Days: No e-Cigarette/Vaping Use: Never Used Use of substances other than those prescribed or required for medical reasons: Yes Substance Use Type: Marijuana Substance Use Type Other:: Edibles Substance Use Frequency: Occasionally Last Used Substance: Hours (ago) Advance Directives: No Advance Directives Information Provided: Yes Do you have a plan to hurt others: No Plan service: No Current occupational status: employed Cognitive needs: No Hearing needs: No Vision needs: Yes Physical Exam 2 Vital Signs: Vital Signs: Last Vital Signs Temp 98.6 F 09/14/24 08:06 Pulse 96 09/14/24 08:06 Resp 18 09/14/24 08:06 BP 152/93 H 09/14/24 08:06 Pulse Ox 96 09/14/24 08:06 O2 Del Method Room Air 09/14/24 08:06 BMI result Body Mass Index 27.0 He looks well is comfortable in the stretcher Const: General: cooperative, comfortable and no acute distress Nutritional Appearance: average body habitus Orientation/consciousness: patient oriented x3 HEENT: Head: Yes normal to inspection Ears: hearing grossly normal bilaterally General nose exam: Normal external nose present Face and sinus: Yes normal facial exam Mouth: Normal oral and palatal mucosa present Neck: Neck: Yes normal visual inspection Chest: Chest palpation & inspection: normal inspection of the chest Resp: Effort & Inspection: normal respiratory effort Auscultation: clear to auscultation bilaterally Cardio: Jugular venous distension: no JVD Rate: regular rate Rhythm: r egular rhythm GI: Inspection: Yes normal to inspection Palpation (GI): Soft to palpation, not firm, nontender and no guarding Skin: General skin exam: no rashes or lesions noted, elasticity normal and turgor normal Lesions: no lesions Rashes: no rashes Neuro: General: patient oriented x3 Medications Administered Discontinued Medications Generic Name Dose Route Start Last Admin Trade Name Freq PRN Reason Stop Dose Admin Sodium Chloride 1,000 mls @ 999 mls/hr 09/14/24 08:15 09/14/24 08:45 Ns IVCONT 09/14/24 09:15 999 mls/hr .Q1H1M [facility] Administration Medical Decision Making Medical Decision Making [facility] Narrative: Patient is here after a syncopal episode we will obtain electrocardiogram high sensitive troponin head CT 10:07 head cT normal labs within normal limit, the patient has a right bundle branch block with left axis ( bifascicular block) I think it is very reasonable to admit him for observation monitor Differential Diagnosis Differential Diagnoses: The differential diagnosis associated with the presentation includes Cardiac arrhythmia/vasovagal episode Admission/Observation Consideration of admission/observation: Escalation of care including admission/observation considered Consult Healthcare Provider Management of the patient was discussed with: Hospitalist Lab Data MDM Lab Attestation statement: I reviewed the patient's lab results. 09/14/24 08:40 09/14/24 08:40 Labs: Lab Results 09/14/24 Range/Units 08:40 WBC 9.2 (4.8-10.8) X10*3/uL RBC 5.57 (4.60-5.80) X10*6/uL Hgb 16.1 (14.0-18.0) g/dl Hct 49.1 (42.0-52.0) % MCV 88.2 (80.0-98.0) fL MCH 28.9 (27.0-33.0) pg MCHC 32.8 (31.0-36.0) g/dl RDW 13.1 (11.0-16.0) % Plt Count 245 (160-400) X10*3/uL MPV 11.0 (9.4-12.4) fL Immature Gran % (Auto) 0.5 H (0.0-0.4) % Neut % (Auto) 59.7 (45-73) % Lymph % (Auto) 24.7 (20-40) % Early % (Auto) 10.4 (2-11) % Eos % (Auto) 3.8 (0-4) % Baso % (Auto) 0.9 (0-2) % Lymph # (Auto) 2.3 (1.2-4.9) X10*3/uL Early # (Auto) 1.0 (0.1-1.2) X10*3/uL Eos # (Auto) 0.4 (0.0-0.4) X10*3/uL Baso # (Auto) 0.1 (0.0-0.2) X10*3/uL Abs Immat Gran (auto) 0.05 H (0.00-0.03) X10*3/uL Absolute Neuts (auto) 5.5 (2.0-8.3) x10*3/uL Absolute Nucleated RBC 0.000 (0.0-0.012) X10*3/uL Nucleated RBC % (auto) 0.0 (0.0-0.2) /100WBC Sodium 139 (135-145) mmol/L Potassium 4.8 (3.3-5.1) mmol/L Chloride 107 (96-108) mmol/L Carbon Dioxide 21 L (22-29) mmol/L Anion Gap 16 (12-20) BUN 22 H (9-16) mg/dL Creatinine 0.92 (0.5-1.4) mg/dL Estim Creat Clear Calc 66.8 Estimated GFR > 60 Random Glucose 193 H (60-115) mg/dL Calcium 9.8 (8.4-10.2) mg/dL Total Bilirubin 0.4 (0.0-1.0) mg/dL AST 24 (5-37) U/L ALT 22 (0-40) U/L Alkaline Phosphatase 73 (39-117) U/L Troponin I High Sens < 2.7 (<3.5-35.0) ng/L Total Protein 7.8 (6.5-8.0) g/dL Albumin 4.2 (3.5-5.0) g/dL Independent Interpretation I performed an independent interpretation of an: EKG (EKG was reviewed interpreted by me as sinus rhythm rate 93 right bundle-branch block) and CT Scan (head CT negative) Radiology Impression Discussion of test interpretation with radiology: I have reviewed the radiologist's reading. Radiologist Impression: NAD External Record Review External record reviewed: Inpatient record Discharge Plan Discharge Clinical Impression: Syncope Qualifiers: Syncope type: unspecified Qualified Code(s): R55 - Syncope and collapse Patient Disposition: Admitted As Inpatient Print Language: Telugu
[2024-09-14 08:44] LABS: MANUAL DIFF FLAG NO
[2024-09-14 08:45] LABS: Basophils Absolute Auto 0.1 X10*3/uL (0.0-0.2); Basophils Percent Auto 0.9 % (0-2); Eosinophils Absolute Auto 0.4 X10*3/uL (0.0-0.4); Eosinophils Percent Auto 3.8 % (0-4); Hematocrit 49.1 % (42.0-52.0); Hemoglobin 16.1 g/dl (14.0-18.0); Imm Gran Abs Auto 0.05 X10*3/uL (0.00-0.03); Imm Gran Pct Auto 0.5 % (0.0-0.4); Lymphocytes Absolute Auto 2.3 X10*3/uL (1.2-4.9); Lymphocytes Percent Auto 24.7 % (20-40); Mean Corpuscular HGB Conc 32.8 g/dl (31.0-36.0); Mean Corpuscular Hemoglobin 28.9 pg (27.0-33.0); Mean Corpuscular Volume 88.2 fL (80.0-98.0); Monocytes Percent Auto 10.4 % (2-11); Neutrophils Absolute Auto 5.5 x10*3/uL (2.0-8.3); Neutrophils Percent Auto 59.7 % (45-73); Platelet Count 245 X10*3/uL (160-400); Red Blood Count 5.57 X10*6/uL (4.60-5.80); Red Cell Distribution Width 13.1 % (11.0-16.0); White Blood Count 9.2 X10*3/uL (4.8-10.8)
[2024-09-14] MEDS: 0.9 % Sodium Chloride 1,000 ML 999 ML IVCONT (08:45)
[2024-09-14 09:05] LABS: Alanine Aminotransferase 22 U/L (0-40); Albumin Level 4.2 g/dL (3.5-5.0); Alkaline Phosphatase 73 U/L (39-117); Anion Gap 16 (12-20); Aspartate Amino Transferase 24 U/L (5-37); Bilirubin Total 0.4 mg/dL (0.0-1.0); Blood Urea Nitrogen 22 mg/dL (9-16); Calcium 9.8 mg/dL (8.4-10.2); Carbon Dioxide 21 mmol/L (22-29); Chloride 107 mmol/L (96-108); Creatinine Clr Calc Pharmacy 66.8; Estimated Glomerular Filt Rate > 60; Glucose Random 193 mg/dL (60-115); Potassium 4.8 mmol/L (3.3-5.1); Sodium 139 mmol/L (135-145); Total Protein 7.8 g/dL (6.5-8.0)
[2024-09-14 09:14] LABS: Troponin-I High Sensitivity < 2.7 ng/L (<3.5-35.0)
--- NOTE | 2024-09-14 10:07 | P.HPHOSP_ITS ---
History of Present Illness Date of Service: 09/14/24 Chief Complaint: syncope 69yo M with DM2 and HTN presenting today after standing up to take his morning medications at home, becoming dizzy and lightheaded, and passing out briefly with quick return to consciousness. No seizure-like activity. AM BG was around 170. No chest pain or dyspnea, No headache. No confusion. No recent nausea, vomiting, or diarrhea. He has had allergies for the past 4 days and has been improving with loratadine. His golf ball trimmer is Dr Guilherme botello at [facility]. This is actually his 3rd episode of syncope in the last 3 years. In 2021, it was attributed to dehydration. Cardiac monitoring and stress test were normal. TTE 03/03/24 showed: - Normal left ventricular size and systolic function. There is mildly increased left ventricular wall thickness. The visually estimated ejection fraction is between 55-60%. - E/E prime ratio is between 8 and 15 consistent with indeterminate filling pressures. - The basal inferior segment is akinetic. - Normal right ventricular cavity size and systolic function. He had another episode 3 months ago and was admitted to [facility] and discharged with a 7-day event monitor, which showed: 1. Patient was monitored for total period of 6 days and 23 hours 2. Baseline was normal sinus rhythm with average heart of 88 beats per minute 3. Occasional PACs and PVCs noted 4. One 4 beat run of nonsustained VT at 113 beats per minute 5. No significant pauses noted 6. No patient reported events He said at that admission, his diastolic blood pressure was as low as the 30s. No medication changes were made, though. Here, his blood pressure is 152/93 supine and orthostatics are pending. CT head and C-spine negative. EKG with RBBB which is old. Review of Systems 2 Review of Systems: Yes all other systems are reviewed and are negative [facility] Medical History Syncope History of right inguinal hernia Hx of syncope (~2021) Anxiety Vitamin D deficiency Rash and nonspecific skin eruption RBBB (right bundle branch block) Sinus tachycardia by electrocardiogram Mixed dyslipidemia Hx of skin cancer, basal cell Epiploic appendagitis Seasonal allergic rhinitis Hypertriglyceridemia Family history of prostate cancer Prostate cancer screening Essential hypertension Diabetes mellitus with hyperglycemia, without long-term current use of insulin Family History Father Stroke Aneurysm Cancer of prostate Mother Asbestos exposure Lung cancer Smoker Maternal Grandfather No problems noted. Maternal Grandmother No problems noted. Paternal Grandfather No problems noted. Paternal Grandmother No problems noted. Maternal Aunt Diabetes mellitus Sister No problems noted. Surgical History History of esophagogastroduodenoscopy (EGD) History of inguinal hernia repair History of colonoscopy H/O arthroscopy of shoulder History of basal cell carcinoma excision History of tonsillectomy Social History Household Members: Significant Other Housing: House Are you a primary respiratory care specialist to a significant other at home: No Do you presently have visiting nurse or other home services: No Alcohol intake: current Alcohol intake frequency: a few times a week Alcohol type: wine Patient Tobacco Use Status: Former Tobacco user Tobacco use type: Cigarette Smoked in Last 30 Days: No e-Cigarette/Vaping Use: Never Used Use of substances other than those prescribed or required for medical reasons: Yes Substance Use Type: Marijuana Substance Use Type Other:: Edibles Substance Use Frequency: Occasionally Last Used Substance: Hours (ago) Advance Directives: No Advance Directives Information Provided: Yes Do you have a plan to hurt others: No Plan service: No Current occupational status: employed Cognitive needs: No Hearing needs: No Vision needs: Yes Meds Allergies Allergy/AdvReac Type Severity Reaction Status Date / Time barium sulfate Allergy Intermediate rash Verified 09/14/24 08:03 [email or web address] Allergy Intermediate rash Verified 09/14/24 08:03 Active Medications: Current Medications Acetaminophen (Acetaminophen 325 Mg Tablet) 650 mg PO Q6H PRN PRN Reason: Pain, Mild 1-3,fever,headache Calcium Carbonate (Calcium Carbonate 750 Mg Tab.Chew) 750 mg PO Q4H PRN PRN Reason: Heartburn Enoxaparin Sodium (Enoxaparin Sodium 40 Mg/0.4 Ml Syringe) 40 mg SUBCUT Q24H OLI Magnesium Hydroxide (Milk Of Magnesia 30 Ml Oral.Susp) 30 ml PO DAILY PRN PRN Reason: Constipation Melatonin (Melatonin 3 Mg Tablet) 6 mg PO BEDTIME PRN PRN Reason: Insomnia Ondansetron HCl (Ondansetron Hcl 4 Mg/2 Ml Vial) 4 mg IVPUSH Q8H PRN PRN Reason: Nausea and Vomiting Sodium Chloride (0.9 % Sodium Chloride Flush 3 Ml Syringe) 3 ml IVFLUSH QSHIFT OLI Physical Exam 2 Vital Signs and Narrative: Vital Signs: Last Vital Signs Temp 98.6 F 09/14/24 08:06 Pulse 96 09/14/24 08:06 Resp 18 09/14/24 08:06 BP 152/93 H 09/14/24 08:06 Pulse Ox 96 09/14/24 08:06 O2 Del Method Room Air 09/14/24 08:06 BMI result Body Mass Index 27.0 Gen: in no acute distress HEENT: sclera anicteric, moist mucus membranes Neck: supple Lungs: clear to auscultation bilaterally Heart: regular rate and rhythm, no murmurs Abd: soft, non-tender, non-distended Ext: no edema Skin: warm/well-perfused Neuro: alert and oriented x3, no focal findings Psych: appropriate affect Results Labs 09/14/24 08:40 09/14/24 08:40 Labs: Laboratory Results - last 24 hr 09/14/24 08:40 MCV 88.2 MCH 28.9 MCHC 32.8 RDW 13.1 Plt Count 245 MPV 11.0 Immature Gran % (Auto) 0.5 H Neut % (Auto) 59.7 Lymph % (Auto) 24.7 [place] % (Auto) 10.4 Eos % (Auto) 3.8 Baso % (Auto) 0.9 Lymph # (Auto) 2.3 [place] # (Auto) 1.0 Eos # (Auto) 0.4 Baso # (Auto) 0.1 Abs Immat Gran (auto) 0.05 H Absolute Neuts (auto) 5.5 Absolute Nucleated RBC 0.000 Nucleated RBC % (auto) 0.0 Anion Gap 16 Estim Creat Clear Calc 66.8 Estimated GFR > 60 Random Glucose 193 H Calcium 9.8 Total Bilirubin 0.4 AST 24 ALT 22 Alkaline Phosphatase 73 Total Protein 7.8 Albumin 4.2 Assessment and Plan (1) Syncope: Qualifiers: Syncope type: unspecified Qualified Code(s): R55 - Syncope and collapse Status: Acute Plan 69yo with DM2 and HTN presenting after 3rd syncopal episode in 3 years. syncope - Admit to telemetry on observation. Negative workup for arrhythmia in past and no structural heart disease on recent echocardiogram. Suspect this is volume depletion +/- orthostasis related to the combination of being on both empagliflozin and semaglutide. Will hold both for now and advise that he discontinue empagliflozin. Will check orthostatic vital signs now and again tomorrow morning. May need to adjust lisinopril dose as well depending on his blood pressures. HTN - Continue carvedilol and lisinopril for now DM2 - A1c 8.2 in May. Hold MTF, empagliflozin, and semaglutide for now. Correction-dose lispro while in hospital. allergic rhinitis - Continue fluticasone + loratadine. mood disorder - Continue bupropion. VTE prophylaxis - Enoxaparin. dispo - Eventual home. code status - Full code. Quality Stroke Does the patient have a stroke diagnosis?: No VTE Prior VTE?: No VTE Risk Level:: Medical - moderate - high VTE Device Contraindication: N/A - Device Ordered VTE Drug Contraindication: N/A - Med Ordered
[2024-09-14] MEDS: Enoxaparin Sodium 40 MG/0.4 ML SYRINGE SUBCUT (10:34)
--- NOTE | 2024-09-14 11:57 | PHA.MEDREC ---
Addendum entered by Marie Harris [facility] 09/14/24 17:05: Reviewed by [facility] Original Note: Pharmacy Consult ? Medication Reconciliation Pharmacy has completed the medication reconciliation. Spoke to pt to confirm meds. Pt reports they take rosuvastatin sparingly and only depending on diet. Reports not taking it in a while, leaving off med rec for now.
[2024-09-14 12:00] LABS: Glucose, Whole Blood 128 mg/dL (60-115)
[2024-09-14] MEDS: 0.9 % Sodium Chloride Flush 3 ML SYRINGE IVFLUSH (16:03)
[2024-09-14 16:49] LABS: Glucose, Whole Blood 135 mg/dL (60-115)
[2024-09-14 20:52] LABS: Glucose, Whole Blood 139 mg/dL (60-115)
[2024-09-14] MEDS: carvediloL 3.125 MG TABLET PO (20:56)
[2024-09-15] VITALS: BP 127/73; PULSE 89; RESP 16; TEMP 36.3; O2SAT 95
[2024-09-15 04:00] VITALS: BP 121/73; PULSE 89; RESP 16; TEMP 36.4; O2SAT 97
[2024-09-15 07:54] LABS: Glucose, Whole Blood 141 mg/dL (60-115)
[2024-09-15 08:00] VITALS: BP 127/75; BP 133/79; PULSE 100; PULSE 79; RESP 12; TEMP 36.3; O2SAT 96
[2024-09-15 09:23] VITALS: BP 124/79; PULSE 104
[2024-09-15 09:24] VITALS: BP 114/74; PULSE 111
[2024-09-15] MEDS: Loratadine 10 MG TABLET PO (09:25)
[2024-09-15] MEDS: carvediloL 3.125 MG TABLET PO (09:25)
[2024-09-15] MEDS: buPROPion HCl XL 150 MG TAB.ER.24H PO (09:25)
[2024-09-15] MEDS: Enoxaparin Sodium 40 MG/0.4 ML SYRINGE SUBCUT (09:25)
[2024-09-15] MEDS: lisinopriL 20 MG TABLET PO (09:25)
[2024-09-15] MEDS: 0.9 % Sodium Chloride Flush 3 ML SYRINGE IVFLUSH (09:26)
[2024-09-15 11:33] LABS: Glucose, Whole Blood 162 mg/dL (60-115)
[2024-09-15 11:56] VITALS: BP 127/75; PULSE 92; RESP 14; TEMP 36; O2SAT 95
[2024-09-15] MEDS: Insulin Lispro 100 UNIT/ML 3 ML VIAL SUBCUT (12:22)
--- NOTE | 2024-09-15 12:38 | MHC.CM.PN ---
OLIVERIO 09/15. Pt self-care, lives at home with his friend/HCP Leah, she will transport him home at discharge. PCP: Dr. Dianna Huitron
--- NOTE | 2024-09-15 13:22 | PM.DS ---
DS: Providers Provider Date of Service: 09/15/24 Date of admission: 09/14/24 10:54 Date of discharge: 09/15/24 Primary care physician: Dianna Huitron MD DS: Diagnosis Discharge Diagnosis (1) Syncope: Status: Acute DS: Summary Hospital Course Hospital Course: 69yo M with DM2 and HTN presenting today after standing up to take his morning medications at home, becoming dizzy and lightheaded, and passing out briefly with quick return to consciousness. No seizure-like activity. AM BG was around 170. No chest pain or dyspnea, No headache. No confusion. No recent nausea, vomiting, or diarrhea. He has had allergies for the past 4 days and has been improving with loratadine. His doctor podiatric medicine is Dr Vanegas here at [facility]. This is actually his 3rd episode of syncope in the last 3 years. In 2021, it was attributed to dehydration. Cardiac monitoring and stress test were normal. TTE 03/03/24 showed: - Normal left ventricular size and systolic function. There is mildly increased left ventricular wall thickness. The visually estimated ejection fraction is between 55-60%. - E/E prime ratio is between 8 and 15 consistent with indeterminate filling pressures. - The basal inferior segment is akinetic. - Normal right ventricular cavity size and systolic function. He had another episode 3 months ago and was admitted to [facility] and discharged with a 7-day event monitor, which showed: 1. Patient was monitored for total period of 6 days and 23 hours 2. Baseline was normal sinus rhythm with average heart of 88 beats per minute 3. Occasional PACs and PVCs noted 4. One 4 beat run of nonsustained VT at 113 beats per minute 5. No significant pauses noted 6. No patient reported events He said at that admission, his diastolic blood pressure was as low as the 30s. No medication changes were made, though. Here, his blood pressure is 152/93 supine and orthostatics are pending. CT head and C-spine negative. EKG with RBBB which is old. Hospital Course Patient admitted to telemetry where monitor failed to demonstrate any acute abnormalities. Discussed with patient's doctor podiatric medicine; cardiogram review without acute changes. In review of meds, rare side effect of Ozempic can be syncope. Patient advised to stop Ozempic until seen by his primary care and/or Cardiology. He will be discharged in stable condition Time Attestation Discharge Coordination Time (in mins): 35 Quality: Safe Use of Opioids Does Pt have an Active Cancer Diagnosis on the Problem List?: No Quality: Stroke Does the patient have a stroke diagnosis?: No Physical Exam Vital Signs: Vital Signs: Last Vital Signs Temp 96.8 F 09/15/24 11:56 Pulse 92 09/15/24 11:56 Resp 14 09/15/24 11:56 BP 127/75 09/15/24 11:56 Pulse Ox 95 09/15/24 11:56 O2 Del Method Room Air 09/15/24 11:56 BMI result Body Mass Index 29.8 Const: Other: Awake alert oriented x3 in no acute distress Resp: Other: Clear to auscultation bilaterally no rales rhonchi or wheezes Cardio: Other: No S4; positive S1-S2; no S3 murmurs rubs or gallops GI: Other: Soft nontender nondistended normoactive bowel sounds Neuro: Other: Cranial nerves 2-12 grossly intact as tested. Motor is 5/5 all extremities. Sensation is intact. Cognition appropriate Extrem: Other: No edema bilaterally DS: Data Data Completed and Pending Labs on day of discharge: Laboratory Results - last 24 hr 09/14/24 09/14/24 09/15/24 16:46 20:26 07:26 POC Glucose 135 H 139 H 141 H 09/15/24 11:09 POC Glucose 162 H Discharge Plan Discharge Anticipated Discharge Date/Time: 09/15/24 13:17 Patient Disposition: Home, Self-Care Discharge Diagnosis: Syncope Referrals: Dianna Huitron MD [Primary Care Provider] - 1 Week Discharge Medications: Continued metformin 1,000 mg tablet 1,000 mg PO BID 90 Days Qty: 180 1RF carvedilol 3.125 mg tablet 3.125 mg PO BID Qty: 180 3RF lisinopril 20 mg tablet 20 mg PO DAILY Qty: 90 1RF omeprazole 10 mg capsule,delayed release(DR/EC) 10 mg PO DAILY@0630 fluticasone propionate [Allergy Relief (fluticasone)] 50 mcg/actuation spray,suspension 1 spray intranasal BID PRN (Reason: Rhinorrhea and nasal congestion) Rx Instructions: administer into each nostril loratadine [Allergy Relief (loratadine)] 10 mg tablet 10 mg PO DAILY Jardiance 25 mg tablet 25 mg PO DAILY bupropion HCl 150 mg tablet sustained-release 12 hr 150 mg PO Q OTHER DAY 90 Days Qty: 45 2RF dicyclomine 20 mg tablet 20 mg PO BID PRN (Reason: abdominal pain) Qty: 30 0RF Discontinued Ozempic 0.25 mg or 0.5 mg (2 mg/3 mL) pen injector 0.5 mg subcut TU@0900 Discharge Orders: Discharge Order (Routine); Ordered 09/15/24 Ordered By: Matheus Du Diet: Advance to usual diet Activity on Discharge: As tolerated Stand Alone Forms: Patient Portal Discharge page Print Language: Swiss Care Plan Goals: Continue all medicines as taken prior to hospital. Health Concerns: Stop Ozempic. In rare occasions this can cause fainting. Discuss resuming with your primary care physician Plan of Treatment: Follow up with PCP next available Assessment: See discharge summary
--- NOTE | 2024-09-15 14:55 | MHC.CM.PN ---
Pt is medically cleared for discharge home self-care, pts friend to transport him home today.
== END 2024-09-15 15:48 | disposition home or self-care (01) ==
LOC: HO.ED 09:39 → HO.EDOVER 10:55 → HO.IMC 19:24
PROVIDERS: Admitting Provider Family Medicine; Emergency Provider Emergency Medicine; PCP Internal Medicine; Visit Provider Hospitalist
DX: R55 Syncope and collapse (principal); E11.9 Type 2 diabetes mellitus without complications; I10 Essential (primary) hypertension; I45.10 Unspecified right bundle-branch block; J30.9 Allergic rhinitis, unspecified; F39 Unspecified mood [affective] disorder; Z79.4 Long term (current) use of insulin; Z79.899 Other long term (current) drug therapy
CPT/HCPCS: 36415; 70450; 72125; 80053; 82947; 84484; 85025; 93005; 96360; 96372; 99222; 99285; J1650

== ENCOUNTER → 2024-09-14 08:05 | Outpatient (BNV) | payer BC, SELFPAY | PROVIDERS: Admitting Provider Family Medicine; Emergency Provider Emergency Medicine; PCP Internal Medicine; Visit Provider Internal Medicine Cardiovascular Disease | DX: I45.10 Unspecified right bundle-branch block (principal) | CPT/HCPCS: 93010 ==

== ENCOUNTER → 2024-09-14 08:18 | Outpatient (BNV) | payer BC, SELFPAY | PROVIDERS: Emergency Provider Emergency Medicine; PCP Internal Medicine; Visit Provider Radiology Vascular & Interventional Radiology | DX: S19.9XXA Unspecified injury of neck, initial encounter (principal); S09.90XA Unspecified injury of head, initial encounter | CPT/HCPCS: 70450; 72125 ==

== ENCOUNTER → 2024-09-14 09:24 | Outpatient (BNV) | payer BC, SELFPAY | PROVIDERS: Emergency Provider Emergency Medicine; PCP Internal Medicine; Visit Provider Family Medicine | DX: R55 Syncope and collapse (principal) | CPT/HCPCS: 99223; 99239 ==

== ENCOUNTER 2024-09-17 14:23 | Outpatient (AMB) | payer BC, SELFPAY ==
--- NOTE | 2024-09-17 14:27 | A.OFFPC_ITS ---
Vital Signs 09/17/24 14:29 Height 5 ft 5.5 in Weight 165 lb BMI 27.0 BP 112/78 Blood Pressure Location Rt brachial Position Sitting Respiration 18 Pulse 100 Pulse Source Pulse Oximeter Temp 97.9 F Temp Source Oral Pulse Oximetry (%) 98 Oxygen Delivery Method Room Air Comment orthostatic b/p's lying 120/78, sitting 120/76, standing 100/70 Intake Visit Reasons: TCM Allergies barium sulfate Allergy (Intermediate, Verified 09/17/24 14:38) rash varenicline Allergy (Intermediate, Verified 09/17/24 14:38) rash Medication List - Last Reconciled 09/17/24 by Dianna Huitron MD bupropion HCl SR 150 mg PO Q OTHER DAY 3 months carvedilol 3.125 mg PO BID dicyclomine 20 mg PO BID PRN empagliflozin (Jardiance) 25 mg PO DAILY fluticasone propionate 50 mcg/actuation (Allergy Relief (fluticasone)) 1 spray intranasal BID PRN lisinopril 20 mg PO DAILY loratadine (Allergy Relief (loratadine)) 10 mg PO DAILY metformin 1,000 mg PO BID 90 days omeprazole 10 mg PO DAILY@0630 Tobacco use date assessed: 09/17/24 Fall risk assessment: 2 + Falls in past year Last assessed Fall Risk: 09/17/24 Dental Screening Dental Screen Date: 09/17/24 Did you have a dental visit in the last 12 months?: No Did you have a dental problem in the last 6 months where you did not have access to dental care?: No Was dental information given to patient?: Patient has dentist HPI TCM HPI Details 69yo M with DM2 and HTN presenting today 09/15/2024 after standing up to take his morning medications at home, becoming dizzy and lightheaded, and passing out briefly with quick return to consciousness. No seizure-like activity. AM BG was around 170. No chest pain or dyspnea, No headache. No confusion. No recent nausea, vomiting, or diarrhea. He has had allergies for the past 4 days and has been improving with loratadine. His custodial supervisor is Dr Vanegas here at [facility]. This is actually his 3rd episode of syncope in the last 3 years. In 2021, it was attributed to dehydration. Cardiac monitoring and stress test were normal. TTE 03/03/24 showed: - Normal left ventricular size and systolic function. There is mildly increased left ventricular wall thickness. The visually estimated ejection fraction is between 55-60%. - E/E prime ratio is between 8 and 15 co nsistent with indeterminate filling pressures. - The basal inferior segment is akinetic . - Normal right ventricular cavity size a nd systolic function. He had another episode 3 months ago and was admitted to [facility] and discharged with a 7-day event monitor, which showed: 1. Patient was monitored for total period of 6 days and 23 hours 2. Baseline was normal sinus rhythm with average heart of 88 beats per minute 3. Occasional PACs and PVCs noted 4. One 4 beat run of nonsustained VT at 113 beats per minute 5. No significant pauses noted 6. No patient reported events He said at that admission, his diastolic blood pressure was as low as the 30s. No medication changes were made, though. Here, his blood pressure is 152/93 supine and orthostatics are pending. CT head and C-spine negative. EKG with RBBB which is old. Hospital Course Patient admitted to telemetry where monitor failed to demonstrate any acute abnormalities. Discussed with patient's custodial supervisor; cardiogram review without acute changes. In review of meds, rare side effect of Ozempic can be syncope. Patient advised to stop Ozempic until seen by his primary care and/or Cardiology. He will be discharged in stable condition TCM TCM Information Date of Discharge 09/15/24 Discharged From [facility] Interactive Contact Date (Reference documentation from this date) 09/16/24 [facility] Medical History Syncope History of right inguinal hernia Hx of syncope (~2021) Anxiety Vitamin D deficiency Rash and nonspecific skin eruption RBBB (right bundle branch block) Sinus tachycardia by electrocardiogram Mixed dyslipidemia Hx of skin cancer, basal cell Epiploic appendagitis Seasonal allergic rhinitis Hypertriglyceridemia Family history of prostate cancer Prostate cancer screening Essential hypertension Diabetes mellitus with hyperglycemia, without long-term current use of insulin Surgical History History of esophagogastroduodenoscopy (EGD) History of inguinal hernia repair History of colonoscopy H/O arthroscopy of shoulder History of basal cell carcinoma excision History of tonsillectomy Family History Father Stroke Aneurysm Cancer of prostate Mother Asbestos exposure Lung cancer Smoker Maternal Grandfather No problems noted. Maternal Grandmother No problems noted. Paternal Grandfather No problems noted. Paternal Grandmother No problems noted. Maternal Aunt Diabetes mellitus Sister No problems noted. Social History Household Members: Significant Other Housing: House Are you a primary intensive care ambulance paramedic to a significant other at home: No Do you presently have visiting nurse or other home services: No 75 years or older and lives alone: No Alcohol intake: current Alcohol intake frequency: a few times a week Alcohol type: wine Patient Tobacco Use Status: Former Tobacco user Tobacco use type: Cigarette e-Cigarette/Vaping Use: Never Used Substance Use Type: Marijuana service: No Current occupational status: employed Cognitive needs: No Hearing needs: No Vision needs: Yes Questionnaire Thrive Questionnaire Date Thrive assessed: 07/22/24 I am a: Patient What is your living situation today?: I have a steady place to live Within the past 12 months, did the food you bought not last and you didn't have the money to get more?: I choose not to answer this question Within the past 12 months, did you worry whether your food would run out before you got money to buy more?: I choose not to answer this question Do you have trouble paying for medicines?: I choose not to answer this question Do you have trouble getting transportation to medical appointments?: I choose not to answer this question Do you have trouble paying your heating and electricity bill?: I choose not to answer this question Do you have trouble taking care of your child, family member or friend?: I choose not to answer this question Do you have trouble with day-to-day activities such as bathing, preparing meals, shopping, managing finances, etc.?: I choose not to answer this question Are you currently unemployed and looking for a job?: I choose not to answer this question Are you interested in more education?: I choose not to answer this question Please select the resources that you would like help with: None Currently or been in a relationship where the following occur: I choose not to answer THRIVE Score: 0 AUDIT C Alcohol Use Questionnaire (AUDIT-C) 2. How many drinks containing alcohol do you have on a typical day when you are drinking?: 1 or 2 3. How often do you have six or more drinks on one occasion?: Never Total Score: 0 JE-7 AMB Questionnaire JE-7 Date JE - 7 assessed: 07/22/24 Source: Developed by Drs. Deven Carrizales, Nela Rowe, Deandre Phipps and colleagues, with an educational emili from [employer]. Physical exam (Primary Care) Vital Signs: Last Vital Signs Temp 97.9 F 09/17/24 14:29 Pulse 100 09/17/24 14:29 Resp 18 09/17/24 14:29 BP 112/78 09/17/24 14:29 Pulse Ox 98 09/17/24 14:29 Oxygen Delivery Method Room Air 09/17/24 14:29 BMI result Body Mass Index 27.0 Tobacco/Smoking Status: Tobacco use Status Tobacco use date assessed 09/17/24 09/17/24 14:33 Patient Tobacco Use Status Former Tobacco user 09/17/24 14:33 Tobacco use type Cigarette 09/17/24 14:33 e-Cigarette/Vaping Use Never Used 09/17/24 14:33 Thrive Assessment: Date of Thrive Assessment Date Thrive assessed 07/22/24 09/17/24 14:33 Currently or been in a relationship where the following occur: I choose not to answer Results AMB Hemoglobin A1c AMB Hemoglobin A1c 7.6 % Last Edit by Frieda Andrews CMA on 09/17/24 15:02 Coding Diagnoses Type 2 diabetes mellitus with hyperglycemia, without long-term current use of insulin E11.65 Diabetes mellitus type: type 2 Essential hypertension I10 Mixed dyslipidemia E78.2 Vitamin D deficiency E55.9 Orthostatic hypotension I95.1 History of syncope Z87.898 Assessment & Plan Assessment & Plan (1) Diabetes mellitus with hyperglycemia, without long-term current use of insulin: Code(s): E11.65 - Type 2 diabetes mellitus with hyperglycemia Category: Medical Qualifiers: Diabetes mellitus type: type 2 Qualified Code(s): E11.65 - Type 2 diabetes mellitus with hyperglycemia (2) Essential hypertension: Code(s): I10 - Essential (primary) hypertension Category: Medical (3) Mixed dyslipidemia: Code(s): E78.2 - Mixed hyperlipidemia Category: Medical (4) Vitamin D deficiency: Code(s): E55.9 - Vitamin D deficiency, unspecified Category: Medical (5) Orthostatic hypotension: Code(s): I95.1 - Orthostatic hypotension Category: Medical (6) History of syncope: Code(s): Z87.898 - Personal history of other specified conditions Orders: Orders AMB Hemoglobin A1c Today E11.65 - Type 2 diabetes mellitus with hyperglycemia Hemoglobin A1c 11/28/24 E11.65 - Type 2 diabetes mellitus with hyperglycemia, E55.9 - Vitamin D deficiency, unspecified, E78.2 - Mixed hyperlipidemia, I10 - Essential (primary) hypertension, I95.1 - Orthostatic hypotension, Z87.898 - Personal history of other specified conditions Basic Metabolic Panel Fasting 11/28/24 E11.65 - Type 2 diabetes mellitus with hyperglycemia, E55.9 - Vitamin D deficiency, unspecified, E78.2 - Mixed hyperlipidemia, I10 - Essential (primary) hypertension, I95.1 - Orthostatic hypotension, Z87.898 - Personal history of other specified conditions Lipid Panel 11/28/24 E11.65 - Type 2 diabetes mellitus with hyperglycemia, E55.9 - Vitamin D deficiency, unspecified, E78.2 - Mixed hyperlipidemia, I10 - Essential (primary) hypertension, I95.1 - Orthostatic hypotension, Z87.898 - Personal history of other specified conditions Alanine Aminotransferase 11/28/24 E11.65 - Type 2 diabetes mellitus with hyperglycemia, E55.9 - Vitamin D deficiency, unspecified, E78.2 - Mixed hyperlipidemia, I10 - Essential (primary) hypertension, I95.1 - Orthostatic hypotension, Z87.898 - Personal history of other specified conditions Aspartate Amino Transferase 11/28/24 E11.65 - Type 2 diabetes mellitus with hyperglycemia, E55.9 - Vitamin D deficiency, unspecified, E78.2 - Mixed hyperlipidemia, I10 - Essential (primary) hypertension, I95.1 - Orthostatic hypotension, Z87.898 - Personal history of other specified conditions Vitamin D 25-OH Total 11/28/24 E11.65 - Type 2 diabetes mellitus with hyperglycemia, E55.9 - Vitamin D deficiency, unspecified, E78.2 - Mixed hyperlipidemia, I10 - Essential (primary) hypertension, I95.1 - Orthostatic hypotension, Z87.898 - Personal history of other specified conditions
[2024-09-17 14:29] VITALS: BP 112/78; PULSE 100; RESP 18; TEMP 36.6; O2SAT 98; BMI 27.0
== END 2024-09-17 16:26 | disposition home or self-care (01) ==
LOC: HO.HMCC 14:24
PROVIDERS: PCP Internal Medicine; Visit Provider Internal Medicine
DX: E11.65 Type 2 diabetes mellitus with hyperglycemia (principal)

== ENCOUNTER → 2024-09-17 14:23 | Outpatient (BNVA) | payer BC, SELFPAY | PROVIDERS: PCP Internal Medicine; Visit Provider Internal Medicine | DX: E11.65 Type 2 diabetes mellitus with hyperglycemia (principal); I10 Essential (primary) hypertension; E78.2 Mixed hyperlipidemia; E55.9 Vitamin D deficiency, unspecified; I95.1 Orthostatic hypotension; Z87.898 Personal history of other specified conditions | CPT/HCPCS: 83036 ==

== ENCOUNTER 2024-09-30 08:46 | Outpatient (AMB) | payer BC, SELFPAY ==
--- NOTE | 2024-09-30 08:51 | A.OFFVIS_ITS ---
Vital Signs 09/30/24 08:52 09/30/24 09:00 09/30/24 09:03 Height 5 ft 5 in Weight 166 lb 3.657 oz BMI 27.7 BP 124/80 141/82 H 139/79 Blood Pressure Location Rt brachial Rt brachial Rt brachial Position Sitting Standing Supine Pulse 101 H 102 H 98 Pulse Source Pulse Oximeter Pulse Oximeter Pulse Oximeter Intake Visit Reasons: [facility] Director Of Revenue Required: No Allergies barium sulfate Allergy (Intermediate, Verified 09/30/24 08:54) rash varenicline Allergy (Intermediate, Verified 09/30/24 08:54) rash Medication List - Last Reconciled 09/30/24 by Breanna Malone [employer] bupropion HCl SR 150 mg PO Q OTHER DAY 3 months carvedilol 3.125 mg PO BID empagliflozin (Jardiance) 25 mg PO DAILY fluticasone propionate 50 mcg/actuation (Allergy Relief (fluticasone)) 1 spray intranasal BID PRN lisinopril 20 mg PO DAILY loratadine (Allergy Relief (loratadine)) 10 mg PO DAILY metformin 1,000 mg PO BID 90 days omeprazole 10 mg PO DAILY@0630 HPI HPI [facility] [place]/u[place]: Details: Fan is a 69-year-old male with past medical history of hypertension, hyperlipidemia, diabetes, right bundle branch block, syncope, who was recently admitted to [facility] with recurrent syncopal event without significant findings. It was thought that Ozempic may be contributing to his syncope and it was stopped. He now presents for follow-up. Today he reports is still feeling lightheadedness at times in the morning between 8 and 10:00. He says he feels well the rest of the day. His syncopal events have occurred usually during this timeframe. He has been monitoring his blood pressure at home including orthostatics. Blood pressure list reviewed by me which shows systolic ranging 160 to 130s without any notable hypotension. He has not had any recurrent syncope since hospital discharge. He has been increasing his fluid intake to 64 oz daily. No shortness of breath, PND, orthopnea or edema. No chest discomfort at rest or with activity. 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 Taking meds as directed. [facility] Medical History Syncope Orthostatic hypotension Syncope History of right inguinal hernia Hx of syncope (~2021) Anxiety Vitamin D deficiency Rash and nonspecific skin eruption RBBB (right bundle branch block) Sinus tachycardia by electrocardiogram Mixed dyslipidemia Hx of skin cancer, basal cell Epiploic appendagitis Seasonal allergic rhinitis Hypertriglyceridemia Family history of prostate cancer Prostate cancer screening Essential hypertension Diabetes mellitus with hyperglycemia, without long-term current use of insulin Surgical History History of esophagogastroduodenoscopy (EGD) History of inguinal hernia repair History of colonoscopy H/O arthroscopy of shoulder History of basal cell carcinoma excision History of tonsillectomy Family History Father Stroke Aneurysm Cancer of prostate Mother Asbestos exposure Lung cancer Smoker Maternal Grandfather No problems noted. Maternal Grandmother No problems noted. Paternal Grandfather No problems noted. Paternal Grandmother No problems noted. Maternal Aunt Diabetes mellitus Sister No problems noted. Social History Household Members: Significant Other Housing: House Are you a primary daycare manager to a significant other at home: No Do you presently have visiting nurse or other home services: No 75 years or older and lives alone: No Alcohol intake: current Alcohol intake frequency: a few times a week Alcohol type: wine Patient Tobacco Use Status: Former Tobacco user Tobacco use type: Cigarette e-Cigarette/Vaping Use: Never Used Substance Use Type: Marijuana service: No Current occupational status: employed Cognitive needs: No Hearing needs: No Vision needs: Yes Review of Systems Const All systems reviewed & are unremarkable except as noted in HPI and below ENT Reports dizziness Card Denies chest pain, Denies chest pain at rest, Denies chest pain with activity, Denies rapid heart rate, Denies pedal edema, Denies edema, Denies leg edema, Denies lightheadedness, Denies palpitations, Denies dyspnea, Denies dyspnea on exertion and Denies orthopnea Resp Denies cough, Denies dyspnea and Denies dyspnea on exertion GI Denies hematochezia and Denies change in stool character Musc Denies abnormal gait, Denies limited range of motion, Denies muscle cramps, Denies muscle weakness, Denies numbness, Denies radiating pain into limb, Denies stiffness and Denies tingling Neuro Denies abnormal gait, Reports dizziness, Denies numbness and Denies tingling Endo Denies palpitations Physical Exam Vital Signs: Last Vital Signs Pulse 98 09/30/24 09:03 BP 139/79 09/30/24 09:03 BMI result Body Mass Index 27.7 Const General: cooperative, healthy appearing, comfortable and no acute distress Orientation/consciousness: patient oriented x3 Neck Neck: Yes normal visual inspection Resp Effort & Inspection: normal respiratory effort Auscultation: clear to auscultation bilaterally, no rales, no rhonchi and no wheezes Cardio Rate: regular rate Rhythm: regular rhythm Heart sounds: S1 normal heart sound present, S2 normal heart sound present, no gallops, no murmurs and no rubs Neuro General: patient oriented x3 Extrem General: Yes normal to inspection Psych Appearance: grossly normal Mental Status: mental status grossly normal Speech and movement: Normal speech and movement present Assessment & Plan Assessment & Plan (1) Syncope: Code(s): R55 - Syncope and collapse Category: Medical Plan: History of syncope in the past which was thought to be orthostatic in nature. In May 2024 he had an episode of near-syncope with patient report that EMS said his heart rate and blood pressure were low. He was monitored overnight at [facility] without cardiac findings. Readmission for syncopal event 09/14/2024 without significant findings. His last echocardiogram 03/03/2024 showed EF 55-60%, basal inferior akinetic which was unchanged from prior echo (see below). Holter monitor done 07/14/2024 for 7 days shows sinus rhythm with average heart rate 88 beats per minute, occasional PACs and PVCs, one 4 beat run of NSVT. He is currently reporting lightheadedness in the mornings between 8a and 10a. He has been taking carvedilol and lisinopril around 6a. Will reduce lisinopril to 10 mg daily and have him take it in the evening. Continue current carvedilol. I gave him a pair of compression stockings that he can wear in the daytime while at work. Continue with increase fluid intake. He has had some lightheadedness but no recurrent syncopal events since that time. Instructed him to maintain good hydration, recognize symptoms of presyncope and sit/lay down. Will order tilt-table test for further evaluation of syncope. Emergency care if needed for recurrent episodes. Cardiology follow-up 3 months, sooner if needed. (2) Sinus tachycardia: Code(s): R00.0 - Tachycardia, unspecified Category: Medical Plan: History of sinus tachycardia in the past. Pulse rate today is normal. He is not reporting heart palpitations. He is on carvedilol which I will continue. (3) RBBB (right bundle branch block): Code(s): I45.10 - Unspecified right bundle-branch block Category: Medical Plan: Noted on EKGs (4) Essential hypertension: Code(s): I10 - Essential (primary) hypertension Category: Medical Plan: Blood pressure goal less than 130/80. Near goal at present. Continue periodic home blood pressure checks. Med changes as above. (5) Abnormal echocardiogram findings without diagnosis: Code(s): R93.1 - Abnormal findings on diagnostic imaging of heart and coronary circulation Category: Medical Plan: Previous cardiac evaluation following syncopal event 2021 included an echocardiogram done 11/17/2021 showed EF 50-55%, basal inferior wall akinetic. This was followed by nuclear stress test 12/08/2021 which showed normal myocardial perfusion imaging. He has no reports of anginal sounding symptoms. He does have multiple cardiac risk factors including hypertension, hyperlipidemia, diabetes. He needs ongoing risk factor modification. More recent echo still shows the basal inferior wall motion abnormality without change. This was reviewed with him. In the absence of symptoms will continue with risk factor modification. (6) Hospital discharge follow-up: Code(s): Z09 - Encounter for follow-up examination after completed treatment for conditions other than malignant neoplasm Category: Medical Plan: Discharge summary reviewed Plan During the visit, we reviewed the patient's syncopal episodes in the context of his hypertensive and diabetic profile. I provided options addressing his orthostatic symptoms and adjusted the antihypertensive regimen accordingly, considering dosing efficacy and pharmacodynamics. The benefits of compression stockings were explained as a mechanical aid to venous return. Potential risks, including adverse effects from medication adjustments, were outlined. We also discussed the role of hydration and maintaining adequate electrolyte balance, especially during physical activities. The patient expressed understanding of the proposed changes and agreed to monitor symptoms and blood pressure closely with a follow-up arrangement. Orders: Orders ECG Tilt Table Test Today R55 - Syncope and collapse Patient Instructions: - Take lisinopril in the evening at a reduced dose. - Continue taking carvedilol as prescribed. - Wear compression stockings as instructed, especially in the morning. - Drink at least 64 ounces of water daily, include electrolyte drinks if active. - Monitor and log blood pressure and heart rate at home. - Attend appointment for tilt-table test when scheduled - Follow a consistent diabetes management plan. - Report any worsening of symptoms or additional fainting episodes promptly. - Return for follow-up as scheduled or if conditions change. Patient was informed and verbally consented to the use of an ambient scribe for clinic note documentation during this visit. Visit time spent on chart review, interview, assessment, orders, documentation. Coding Level of Care Code Est Pt Level 4 (12474) Complex EM visit Add On G2211 Diagnoses Syncope R55 Sinus tachycardia R00.0 RBBB (right bundle branch block) I45.10 Essential hypertension I10 Abnormal echocardiogram findings without diagnosis R93.1 Hospital discharge follow-up Z09 Time Spent (min) 28
[2024-09-30 08:52] VITALS: BP 124/80; PULSE 101; BMI 27.7
[2024-09-30 09:00] VITALS: BP 141/82; PULSE 102
[2024-09-30 09:03] VITALS: BP 139/79; PULSE 98
== END 2024-09-30 09:29 | disposition home or self-care (01) ==
LOC: HO.HCS 08:47
PROVIDERS: PCP Internal Medicine; Visit Provider Nurse Practitioner Family
DX: R55 Syncope and collapse (principal); R00.0 Tachycardia, unspecified; I45.10 Unspecified right bundle-branch block; I10 Essential (primary) hypertension; R93.1 Abnormal findings on diagnostic imaging of heart and coronary circulation; Z09 Encounter for follow-up examination after completed treatment for conditions other than malignant neoplasm
CPT/HCPCS: 99214

== ENCOUNTER → 2024-09-30 08:46 | Outpatient (BNVA) | payer BC, SELFPAY | PROVIDERS: PCP Internal Medicine; Visit Provider Nurse Practitioner Family ==

== ENCOUNTER 2024-11-25 06:45 | Outpatient (REF) | payer BC, SELFPAY ==
--- OUTSIDE RECORDS SUMMARY | 2024-11-25 06:47 | XMS_ITS | Clinical Summary ---
Author Organization [facility] Address [address] [place] [address] Care Team Providers Care Maintenance Construction Helper Name Role Phone Yuriy Culp MD Primary Care Provider Unava ilable Social History Tobacco Use Types Packs/Day Years Used Date Smoking Tobacco: Never Assessed Sex and Gender Information Value Date Recorded Sex Assigned at Not on file Legal Sex Male 7:56 AM EST Gender Identity Not on file Sexual Orientation Not on file Plan of Treatment Upcoming Encounters Date Type Department Care Team (Late st Contact Info) Description 12/23/2024 1:00 PM EDT Appointment [facility] [address] [place] [address] Health Maintenance Due Date Last Done Comments Diabetes: Annual GFR (Glomer ular Filtration Rate) 1956 Diabetes: Annual Foot Exam 1966 Diabetes: Annual Retina Eye Exam 1966 DTaP,Tdap,and Td Vaccines (1 - Tdap) 08/05/1975 Pneumococcal Vaccine: 50+ Ye ars (1 of 1 - PCV) 2006 Zoster Vaccines (1 of 2) 2006 COVID-19 Vaccine ( - 2023-2 5 season) 2023 Depression Screening 04/30/2024 Abdominal Aortic Aneurysm (A AA) Screen 10/01/2024 Cholesterol Screening (Lipid Panel) 10/01/2024 Colorectal Cancer Screening: Colonoscopy 10/01/2024 Diabetes: Annual Urine Albumin-Creatinine Ratio (uACR) 10/01/2024 Diabetes: Blood Sugar Contro l Test (HGBA1C) 10/01/2024 Falls Risk Assessment 10/01/2024 Hepatitis C Screening 10/01/2024 Hypertension/CHF/CAD Annual BMP Blood Test 10/01/2024 Social Influencers of Health Screening 10/01/2024 Influenza Vaccine (#1) 2024 01/10/2017 RSV Immunization Adult Patie nts (1 - 1-dose 75+ series) 08/05/2031 HIB Vaccines Aged Out No longer eligi ble based on patient's age to complete this topic HPV Vaccines Aged Out No longer eligi ble based on patient's age to complete this topic Hepatitis A Vaccines Aged Out No long er eligible based on patient's age to complete this topic Hepatitis B Vaccines Aged Out No long er eligible based on patient's age to complete this topic IPV Vaccines Aged Out No longer eligi ble based on patient's age to complete this topic MMR Vaccines Aged Out No longer eligi ble based on patient's age to complete this topic Meningococcal ACWY Vaccine Aged Out N o longer eligible based on patient's age to complete this topic Meningococcal B Vaccine Aged Out No l onger eligible based on patient's age to complete this topic RSV Immunization Patients Un andrews 20 months Aged Out No longer eligible b ased on patient's age to complete this topic Varicella Vaccines Aged Out No longer eligible based on patient's age to complete this topic Insurance MEDICARE Care Teams Maintenance Construction Helper Relationship Specialty Start Date End Date Yuriy Culp MD PCP - General Internal Medicine 12/29/16
[2024-11-25 10:23] LABS: Hemoglobin A1C 303.9512 umol/L; Total Hemoglobin (HGBA1C) 4088.1770 umol/L
[2024-11-25 10:58] LABS: Alanine Aminotransferase 32 U/L (0-40); Anion Gap 15 (12-20); Aspartate Amino Transferase 28 U/L (5-37); Blood Urea Nitrogen 28 mg/dL (9-16); Calcium 9.6 mg/dL (8.4-10.2); Carbon Dioxide 22 mmol/L (22-29); Chloride 107 mmol/L (96-108); Cholesterol 202 mg/dL (<200); Estimated Glomerular Filt Rate > 60; HDL Cholesterol 40 mg/dL (>40); Potassium 4.4 mmol/L (3.3-5.1); Sodium 140 mmol/L (135-145); Triglycerides 277 mg/dL (<150)
== END 2024-11-25 06:46 | disposition home or self-care (01) ==
LOC: HO.HMGCLDS 06:45
PROVIDERS: PCP Internal Medicine; Visit Provider Internal Medicine
DX: I10 Essential (primary) hypertension (principal); E11.65 Type 2 diabetes mellitus with hyperglycemia; E78.2 Mixed hyperlipidemia; I95.1 Orthostatic hypotension; E55.9 Vitamin D deficiency, unspecified; Z87.898 Personal history of other specified conditions
CPT/HCPCS: 36415; 80048; 80061; 82306; 83036; 84450; 84460

== ENCOUNTER 2024-12-02 12:38 | Outpatient (AMB) | payer BC, SELFPAY ==
--- NOTE | 2024-12-02 12:49 | A.OFFPC_ITS ---
Vital Signs 12/02/24 12:51 Height 5 ft 5 in Weight 165 lb BMI 27.5 BP 110/70 Blood Pressure Location Rt brachial Position Sitting Respiration 15 Pulse 88 Pulse Source Pulse Oximeter Temp 98.2 F Temp Source Oral Pulse Oximetry (%) 97 Oxygen Delivery Method Room Air Intake Visit Reasons: Annual [id number]-[id number] Dr. Huitron Intake Note: Pt is here today for his PE: last colonoscopy 02/27/17 Allergies barium sulfate Allergy (Intermediate, Verified 12/02/24 13:18) rash varenicline Allergy (Intermediate, Verified 12/02/24 13:18) rash Medication List - Last Reconciled 12/02/24 by Dianna Huitron MD bupropion HCl SR 150 mg PO Q OTHER DAY 3 months carvedilol 3.125 mg PO BID empagliflozin (Jardiance) 25 mg PO DAILY fluticasone propionate 50 mcg/actuation (Allergy Relief (fluticasone)) 1 spray intranasal BID PRN lisinopril 10 mg PO DAILY loratadine (Allergy Relief (loratadine)) 10 mg PO DAILY metformin 1,000 mg PO BID 90 days omeprazole 10 mg PO DAILY@0630 Tobacco use date assessed: 12/02/24 Fall risk assessment: 2 + Falls in past year Last assessed Fall Risk: 12/02/24 Dental Screening Dental Screen Date: 12/02/24 Did you have a dental visit in the last 12 months?: No Did you have a dental problem in the last 6 months where you did not have access to dental care?: No Was dental information given to patient?: Patient has dentist HPI Annual [id number]-qjq Dr. Huitron HPI Details - The patient is a 69-year-old male with history of hypertension and diabetes mellitus management, and recent syncopal episodes, here today for his physical exam.. - Hypertension: The patient has been on carvedilol and lisinopril for blood pressure management. The blood pressure was noted to be 110/70 mmHg, which is lower than usual. Adjustments to medication were discussed to prevent hypotension. - Syncope: The patient experienced a bee nting spell in August, attributed to dehydr ation and low blood pressure. A tilt table test is scheduled for further evaluation. - Diabetes Mellitus: The patient has bee n managing diabetes with medications including Ozempic, which was stopped due to insurance coverage issues. The patient reports stable weight but persistent appetite, even well on Ozempic. - Gastrointestinal symptoms: The patient reports frequent bowel movements in the morning, with some being watery. No abdominal pain or bloating was noted.\ -up-to-date with his screening colonosco py due again in 2026. Reminded to get his yearly diabetes eye screening, last eye exam on record was in 2022 [facility] Medical History Syncope Orthostatic hypotension Syncope History of right inguinal hernia Hx of syncope (~2021) Anxiety Vitamin D deficiency Rash and nonspecific skin eruption RBBB (right bundle branch block) Sinus tachycardia by electrocardiogram Mixed dyslipidemia Hx of skin cancer, basal cell Epiploic appendagitis Seasonal allergic rhinitis Hypertriglyceridemia Family history of prostate cancer Prostate cancer screening Essential hypertension Diabetes mellitus with hyperglycemia, without long-term current use of insulin Surgical History History of esophagogastroduodenoscopy (EGD) History of inguinal hernia repair History of colonoscopy H/O arthroscopy of shoulder History of basal cell carcinoma excision History of tonsillectomy Family History Father Stroke Aneurysm Cancer of prostate Mother Asbestos exposure Lung cancer Smoker Maternal Grandfather No problems noted. Maternal Grandmother No problems noted. Paternal Grandfather No problems noted. Paternal Grandmother No problems noted. Maternal Aunt Diabetes mellitus Sister No problems noted. Social History Household Members: Significant Other Housing: House Are you a primary primary care coordinator to a significant other at home: No Do you presently have visiting nurse or other home services: No 75 years or older and lives alone: No Alcohol intake: current Alcohol intake frequency: a few times a week Alcohol type: wine Patient Tobacco Use Status: Former Tobacco user Tobacco use type: Cigarette e-Cigarette/Vaping Use: Never Used Substance Use Type: Marijuana service: No Current occupational status: employed Cognitive needs: No Hearing needs: No Vision needs: Yes Questionnaire Thrive Questionnaire Date Thrive assessed: 07/22/24 I am a: Patient What is your living situation today?: I have a steady place to live Within the past 12 months, did the food you bought not last and you didn't have the money to get more?: I choose not to answer this question Within the past 12 months, did you worry whether your food would run out before you got money to buy more?: I choose not to answer this question Do you have trouble paying for medicines?: I choose not to answer this question Do you have trouble getting transportation to medical appointments?: I choose not to answer this question Do you have trouble paying your heating and electricity bill?: I choose not to answer this question Do you have trouble taking care of your child, family member or friend?: I choose not to answer this question Do you have trouble with day-to-day activities such as bathing, preparing meals, shopping, managing finances, etc.?: I choose not to answer this question Are you currently unemployed and looking for a job?: I choose not to answer this question Are you interested in more education?: I choose not to answer this question Please select the resources that you would like help with: None Currently or been in a relationship where the following occur: I choose not to answer THRIVE Score: 0 JE-7 AMB Questionnaire JE-7 Date JE - 7 assessed: 07/22/24 Source: Developed by Drs. Devne Carrizales, Nela Rowe, Deandre Phipps and colleagues, with an educational emili from [employer]. Review of Systems Const All systems reviewed & are unremarkable except as noted in HPI and below ENT Reports dizziness Card Denies chest pain, Denies chest pain at rest, Denies chest pain with activity, Denies rapid heart rate, Denies pedal edema, Denies edema, Denies leg edema, Denies lightheadedness, Denies palpitations, Denies dyspnea, Denies dyspnea on exertion and Denies orthopnea Resp Denies cough, Denies dyspnea and Denies dyspnea on exertion GI Denies hematochezia and Denies change in stool character Reports no additional complaints Musc Denies abnormal gait, Denies limited range of motion, Denies muscle cramps, Denies muscle weakness, Denies numbness, Denies radiating pain into limb, Denies stiffness and Denies tingling Skin/Breast Denies lesions and Denies rash Neuro Denies abnormal gait, Reports dizziness, Denies numbness and Denies tingling Psych Reports no additional complaints Endo Denies palpitations Raghavendra/Lymph Reports no additional complaints Aller/Immun Reports no additional complaints Physical exam (Primary Care) Vital Signs: Last Vital Signs Temp 98.2 F 12/02/24 12:51 Pulse 88 12/02/24 12:51 Resp 15 12/02/24 12:51 BP 110/70 12/02/24 12:51 Pulse Ox 97 12/02/24 12:51 Oxygen Delivery Method Room Air 12/02/24 12:51 BMI result Body Mass Index 27.5 Tobacco/Smoking Status: Tobacco use Status Tobacco use date assessed 12/02/24 12/02/24 12:52 Patient Tobacco Use Status Former Tobacco user 12/02/24 12:49 Tobacco use type Cigarette 12/02/24 12:49 e-Cigarette/Vaping Use Never Used 12/02/24 12:49 Thrive Assessment: Date of Thrive Assessment Date Thrive assessed 07/22/24 12/02/24 12:49 Currently or been in a relationship where the following occur: I choose not to answer Const General: no acute distress Nutritional Appearance: overweight Orientation/consciousness: patient oriented x3 HENMT Head: Yes normal to inspection Ears: external ears normal General nose exam: Normal external nose present Mouth: oropharynx normal and moist mucous membranes Eyes General: appearance normal, both eyes and all related structures Neck Neck: Yes supple Chest Chest palpation & inspection: normal inspection of the chest Resp Effort & Inspection: normal respiratory effort Auscultation: clear to auscultation bilaterally Cardio Rhythm: regular rhythm Heart sounds: S1 normal heart sound present and S2 normal heart sound present GI Palpation (GI): Soft to palpation, nontender and no guarding Auscultation: normal bowel sounds General: Yes no CVA tenderness Back/Spine/Pelvis Back: no CVA tenderness and No back tenderness Skin General skin exam: no rashes or lesions noted Neuro General: patient oriented x3 Extrem General: Yes full ROM, Yes normal exam except as noted, Yes no joint enlargement, Yes no clubbing, cyanosis or edema, Yes no calf tenderness and Yes normal gait Psych Mental Status: mental status grossly normal Affect: normal affect Results Reviewed Results Reviewed: Name: Fan Lorenzo Jr Age/Sex: 69/M : 1955 Unit#: [id number] Attend Dr: Dianna Huitron MD Re11/25/24 Status: DEP REF Location: [facility] Disch: SPEC : [id number] AYSHA: 11/25/24 STATUS: COMP REQ : [id number] RECD: 11/25/24-[address]: Dianna Huitron MD COMP: 11/25/24 ENTERED: 11/25/[address] [facility] DR: ORDERED: Met Prof Fast, AST, ALT, Lipid Panel, Vitamin D 25-OH Test Result Flag Reference Sodium 140 135-145 mmol/L Potassium 4.4 3.3-5.1 mmol/L CL 107 96-108 mmol/L CO2 22 22-29 mmol/L Gap 15 12-20 BUN 28 H 9-16 mg/dL Creat 0.96 0.5-1.4 mg/dL eGFR > 60 Chronic Kidney Disease: Estimated GFR < 60 mL/min/1.73m2 Severe Kidney Disease: Estimated GFR < 15 mL/min/1.73m2 FBS 213 H 60-99 mg/dL A fasting glucose of 126 mg/dl or greater on more than one occasion is considered diagnostic of diabetes. CA 9.6 8.4-10.2 mg/dL AST (GOT) 28 5-37 U/L ALT (GPT) 32 0-40 U/L Triglyceride 277 H <150 mg/dL Slight Lipemia. Desirable Triglyceride: less than 150 mg/dL Borderline High Triglyceride 150-199 mg/dL High Triglyceride: 200-499 mg/dL Very High Triglyceride: greater than or equal to 5OO mg/dL Cholesterol 202 H <200 mg/dL Desirable Cholesterol: less than 200 mg/dL Borderline High Cholesterol: 200-239 mg/dL High Cholesterol: greater than 239 mg/dL LDL Calculated 107 H <100 mg/dL Desirable LDL: less than 100 mg/dL Near Optimal/Above Optimal LDL: 110-129 mg/dL Borderline High LDL: 130-159 mg/dL High LDL: 160-189 mg/dL Very High LDL: greater than or equal to 190 mg/dL HDL 40 L >40 mg/dL Desirable HDL: greater than 40 mg/dL Note: This HDL assay may give artificially low results in patients with liver disease. Vitamin D 25-OH 69.4 >30 ng/mL Health Based Reference Values* < 20 ng/mL Deficient 20-30 ng/mL Insufficient > 30 ng/mL Sufficient Laboratory Tests 11/25/24 06:59 Estimat Average Glucose 212 Hemoglobin A1c % 9.0 H Coding Level of Care Code Est Pt Prev Care >65y(50567) Diagnoses Annual visit for general adult medical examination with abnormal findings Z00.01 Type 2 diabetes mellitus with hyperglycemia, without long-term current use of insulin E11.65 Diabetes mellitus type: type 2 Essential hypertension I10 Mixed dyslipidemia E78.2 GERD (gastroesophageal reflux disease) K21.9 Orthostatic hypotension I95.1 Advance directive declined by patient Z78.9 Assessment & Plan Assessment & Plan (1) Annual visit for general adult medical examination with abnormal findings: Code(s): Z00.01 - Encounter for general adult medical examination with abnormal findings (2) Diabetes mellitus with hyperglycemia, without long-term current use of insulin: Code(s): E11.65 - Type 2 diabetes mellitus with hyperglycemia Category: Medical Qualifiers: Diabetes mellitus type: type 2 Qualified Code(s): E11.65 - Type 2 di abetes mellitus with hyperglycemia (3) Essential hypertension: Code(s): I10 - Essential (primary) hypertension Category: Medical (4) Mixed dyslipidemia: Code(s): E78.2 - Mixed hyperlipidemia Category: Medical (5) GERD (gastroesophageal reflux disease): Code(s): K21.9 - Gastro-esophageal reflux disease without esophagitis Category: Medical (6) Orthostatic hypotension: Code(s): I95.1 - Orthostatic hypotension Category: Medical (7) Advance directive declined by patient: Code(s): Z78.9 - Other specified health status Plan: Initiated the conversation about Advanced Directives. Advanced Directives help patients prepare for current and future decisions about their medical treatment and place of care. Discussed with patient that it is a process where a patients current condition and prognosis are reviewed, their wishes for information regarding their illness are elicited, and likely medical dilemmas are presented and options discussed. MOLST form completed today. Healthcare proxy form already present in short. These forms can be amended as needed, reviewed yearly and make changes as needed Plan The plan includes adjusting the patient's antihypertensive regimen to prevent hypotension. The carvedilol dose will be reduced, starting with the elimination of the morning dose, continued on lisinopril 10 mg daily in the morning and monitoring blood pressure closely. If blood pressure remains stable, further reduction or discontinuation of carvedilol will be considered. For diabetes management, the patient will resume Ozempic at a lower dose of 0.25 mg once weekly, continue metformin 1000 mg 1 tablet twice a day, with close monitoring of blood glucose levels. The patient is advised to maintain a healthy diet and exercise routine to support weight management and glycemic control. Reminded to get yearly diabetes eye exam. The patient is scheduled for a tilt table test to further investigate the cause of syncope. The patient is advised to stay hydrated and avoid rapid position changes to prevent dizziness and potential fainting episodes. -due for his screening colonoscopy again in 2026. Up-to-date with is vaccine, reminded to get yearly flu shot Patient was informed and verbally consented to the use of an ambient scribe for clinic note documentation during this visit. Orders: Orders Hemoglobin A1c 02/28/25 E11.65 - Type 2 diabetes mellitus with hyperglycemia, E78.2 - Mixed hyperlipidemia, I10 - Essential (primary) hypertension, I95.1 - Orthostatic hypotension, K21.9 - Gastro-esophageal reflux disease without esophagitis, Z00.01 - Encounter for general adult medical examination with abnormal findings, Z78.9 - Other specified health status Alanine Aminotransferase 02/28/25 E11.65 - Type 2 diabetes mellitus with hyper glycemia, E78.2 - Mixed hyperlipidemia, I10 - Essential (primary) hypertension, I95.1 - Orthostatic hypotension, K21.9 - Gastro-esophageal reflux disease without esophagitis, Z00.01 - Encounter for general adult medical examination with abnormal findings, Z78.9 - Other specified health status Lipid Panel 02/28/25 E11.65 - Type 2 diabetes mellitus with hyperglycemia, E78. 2 - Mixed hyperlipidemia, I10 - Essential (primary) hypertension, I95.1 - Orthostatic hypotension, K21.9 - Gastro-esophageal reflux disease without esophagitis, Z00.01 - Encounter for general adult medical examination with abnormal findings, Z78.9 - Other specified health status Basic Metabolic Panel Fasting 02/28/25 E11.65 - Type 2 diabetes mellitus with hyperglycemia, E78.2 - Mixed hyperlipidemia, I10 - Essential (primary) hypertension, I95.1 - Orthostatic hypotension, K21.9 - Gastro-esophageal reflux disease without esophagitis, Z00.01 - Encounter for general adult medical examination with abnormal findings, Z78.9 - Other specified health status Aspartate Amino Transferase 02/28/25 E11.65 - Type 2 diabetes mellitus with hyperglycemia, E78.2 - Mixed hyperlipidemia, I10 - Essential (primary) hypertension, I95.1 - Orthostatic hypotension, K21.9 - Gastro-esophageal reflux disease without esophagitis, Z00.01 - Encounter for general adult medical examination with abnormal findings, Z78.9 - Other specified health status Hemoglobin and Hematocrit 02/28/25 E11.65 - Type 2 diabetes mellitus with hyperglycemia, E78.2 - Mixed hyperlipidemia, I10 - Essential (primary) hypertension, I95.1 - Orthostatic hypotension, K21.9 - Gastro-esophageal reflux disease without esophagitis, Z00.01 - Encounter for general adult medical examination with abnormal findings, Z78.9 - Other specified health status Medications: New Ozempic (semaglutide) for 4 weeks 0.25 mg (0.368 mL) subcut QWEEK 3 mL 4RF 30 days NS E11.65 - Type 2 diabetes mellitus with hyperglycemia Changed From lisinopril 20 mg PO DAILY 90 tabs 1RF To lisinopril 10 mg PO DAILY
[2024-12-02 12:51] VITALS: BP 110/70; PULSE 88; RESP 15; TEMP 36.8; O2SAT 97; BMI 27.5
--- OUTSIDE RECORDS SUMMARY | 2024-12-02 13:13 | XMS_ITS | Clinical Summary ---
Author Organization [facility] Address [address] [place] [address] Care Team Providers Care Rn Document Improvement Name Role Phone Yuriy Culp MD Primary [...] Info) Description 12/23/2024 1:00 PM EDT Appointment [facility] [address] [place] [address] Health Maintenance Due Date Last [...] complete this topic Insurance MEDICARE Care Teams Rn Document Improvement Relationship Specialty Start Date End Date Yuriy Culp MD PCP - General Internal Medicine 12/29/16
--- OUTSIDE RECORDS SUMMARY | 2024-12-02 13:13 | XMS_ITS | Patient Health Record ---
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
== END 2024-12-02 13:52 | disposition home or self-care (01) ==
LOC: HO.HMCC 12:39
PROVIDERS: PCP Internal Medicine; Visit Provider Internal Medicine
DX: Z00.01 Encounter for general adult medical examination with abnormal findings (principal); E11.65 Type 2 diabetes mellitus with hyperglycemia; I10 Essential (primary) hypertension; E78.2 Mixed hyperlipidemia; K21.9 Gastro-esophageal reflux disease without esophagitis; I95.1 Orthostatic hypotension; Z78.9 Other specified health status

== ENCOUNTER 2025-02-02 11:18 | Outpatient (AMB) | payer BC, SELFPAY ==
--- NOTE | 2025-02-02 11:40 | MHC.OFFVIS ---
Vital Signs 02/02/25 11:42 Height 5 ft 5 in Weight 166 lb 3.657 oz BMI 27.7 BP 110/66 Blood Pressure Location Lt brachial Position Sitting Pulse 92 Pulse Source Pulse Oximeter Intake Visit Reasons: 1 year fu (rs) Intake Note: 1 yr f/up- Outpatient Coding Specialist Required: No Accompanied by: Self / Same As Patient Allergies barium sulfate Allergy (Intermediate, Verified 12/02/24 13:18) rash varenicline Allergy (Intermediate, Verified 12/02/24 13:18) rash Medication List - Last Reconciled 02/02/25 by Jerry Vanegas MD bupropion HCl SR 150 mg PO Q OTHER DAY 3 months carvedilol 3.125 mg PO BID empagliflozin (Jardiance) 25 mg PO DAILY fluticasone propionate 50 mcg/actuation (Allergy Relief (fluticasone)) 1 spray intranasal BID PRN lisinopril 10 mg PO DAILY loratadine (Allergy Relief (loratadine)) 10 mg PO DAILY metformin 1,000 mg PO BID 90 days omeprazole 10 mg PO DAILY@0630 HPI Comments Details: 69-year-old gentleman here for follow-up. He was seen in the hospital when he presented with syncope which was thought to be related to orthostasis and dehydration. He underwent echocardiography which showed basal inferior wall motion abnormality. He underwent stress testing which did not show any perfusion defects. Holter monitor also did not show any significant arrhythmia. He is very anxious and has sinus tachycardia. It appears he had sinus tachycardia previously too. He is denying chest discomfort or shortness of breath. on follow-up he is stable. He still is sinus tachycardia on follow-up. On this and follow up his blood pressure is also mildly elevated. His denying any chest discomfort shortness of breath. At home he is saying his heart rates are stable. He has not checked his blood pressure at home. Compliant with medications. 12/18/22: He returns for f/u. This visit we started him on carvedilol 3.125 mg twice a day for high blood pressure. His blood pressure on follow-up is 110/76. He has no chest discomfort or shortness of breath. He is saying his diabetes control still good. He has had morning sugars of 190s. 02/04/2024: He is here for follow-up. He has not been very active recently. Denying chest discomfort or shortness of breath. Heart rate is better controlled on follow-up. Blood pressure is good. EKGs showing right bundle-branch block and concern for lateral infarct as seen before. Blood sugar control has not been good. His last hemoglobin A1c 7.9. LDL was 67 HDL 32 cholesterol 122 and triglycerides 117. 02/02/2025: He is here for follow-up. Echocardiography has shown normal ejection fraction with basal inferior hypokinesis. He continues to deny any symptoms. He had another episode of syncope which was noticed being related to low blood pressures setting of using semaglutide, carvedilol and lisinopril. His medications has been decreased and he has been feeling fine. [facility] Medical History Syncope Orthostatic hypotension Syncope History of right inguinal hernia Hx of syncope (~2021) Anxiety Vitamin D deficiency Rash and nonspecific skin eruption RBBB (right bundle branch block) Sinus tachycardia by electrocardiogram Mixed dyslipidemia Hx of skin cancer, basal cell Epiploic appendagitis Seasonal allergic rhinitis Hypertriglyceridemia Family history of prostate cancer Prostate cancer screening Essential hypertension Diabetes mellitus with hyperglycemia, without long-term current use of insulin Surgical History History of esophagogastroduodenoscopy (EGD) History of inguinal hernia repair History of colonoscopy H/O arthroscopy of shoulder History of basal cell carcinoma excision History of tonsillectomy Family History Father Stroke Aneurysm Cancer of prostate Mother Asbestos exposure Lung cancer Smoker Maternal Grandfather No problems noted. Maternal Grandmother No problems noted. Paternal Grandfather No problems noted. Paternal Grandmother No problems noted. Maternal Aunt Diabetes mellitus Sister No problems noted. Social History Household Members: Significant Other Housing: House Are you a primary college and career counselor to a significant other at home: No Do you presently have visiting nurse or other home services: No 75 years or older and lives alone: No Alcohol intake: current Alcohol intake frequency: a few times a week Alcohol type: wine Patient Tobacco Use Status: Former Tobacco user Tobacco use type: Cigarette e-Cigarette/Vaping Use: Never Used Substance Use Type: Marijuana service: No Current occupational status: employed Cognitive needs: No Hearing needs: No Vision needs: Yes Review of Systems Const Denies chills, Denies fatigue, Denies fever(s), Denies frequent falls, Denies weakness, Denies weight gain and Denies weight loss ENT Denies dizziness Card Denies chest pain, Denies leg edema, Denies lightheadedness, Denies palpitations, Denies dyspnea and Denies dyspnea on exertion Resp Denies cough, Denies dyspnea and Denies dyspnea on exertion GI Denies hematochezia Musc Denies abnormal gait, Denies muscle weakness, Denies numbness, Denies radiating pain into limb and Denies tingling Neuro Denies abnormal gait, Denies dizziness, Denies frequent falls, Denies numbness, Denies tingling and Denies weakness Endo Denies fatigue and Denies palpitations Physical Exam Vital Signs: Last Vital Signs Pulse 92 02/02/25 11:42 BP 110/66 02/02/25 11:42 BMI result Body Mass Index 27.7 GENERAL APPEARANCE: in no acute distress, pleasant. NECK: no carotid bruit, no jugular venous distention. SKIN: no suspicious lesions, warm and dry. HEART: no murmurs, regular rate and rhythm. LUNGS: clear to auscultation bilaterally. ABDOMEN: soft, nontender. EXTREMITIES: no edema. PERIPHERAL PULSES: equal. NEUROLOGIC: No gross deficits, AAO X 3 Assessment & Plan Assessment & Plan (1) RBBB (right bundle branch block): Code(s): I45.10 - Unspecified right bundle-branch block Category: Medical (2) Essential hypertension: Code(s): I10 - Essential (primary) hypertension Category: Medical (3) Abnormal echocardiogram: Code(s): R93.1 - Abnormal findings on diagnostic imaging of heart and coronary circulation Category: Medical Plan [age] year gentleman who is here for follow-up. He has history of chronic right bundle-branch block. He has been reportedly asymptomatic and denies any chest discomfort shortness of breath. Repeat echocardiography done recently has shown ejection fraction of 55-60% but his basal inferior wall is hypokinetic. He has had syncopal episode in the past and had another episode recently which was thought to be related to low blood pressure. He also had a CT scan in the past which has shown coronary calcification. I have discussed with him in detail that given the fact that he has mild hypokinesis of inferior wall and calcification of coronary CTA-we should consider assessment of coronary arteries with coronary CTA. He is agreeable and we will arrange the test for him as soon as we can. He will need basic metabolic panel to check kidney function before the CTA because he is a diabetic. Thank you for allowing me to participate in the care of your patient. Please feel free to contact me if you have any questions. Orders: Orders CT Cardiac Coronary Angio Today R93.1 - Abnormal findings on diagnostic imaging of heart and coronary circulation Coding Level of Care Code Est Pt Level 4 (98829) Diagnoses RBBB (right bundle branch block) I45.10 Essential hypertension I10 Abnormal echocardiogram R93.1
[2025-02-02 11:42] VITALS: BP 110/66; PULSE 92; BMI 27.7
--- OUTSIDE RECORDS SUMMARY | 2025-02-02 13:52 | XMS_ITS | Clinical Summary ---
Author Organization [facility] Address [address] [place] [address] Phone Care Team Providers Care Database Report Writer Name Role Phone Yuriy Culp MD Primary Care Provider Unava ilable Encounters Date Type Department Care Team Description 12/23/2024 12:32 PM EDT - 12/23/2024 11:59 PM EDT Hospital Encounter [facility] Xray [address] [place] [address] Syncope and collapse Discharge Disposition: Home or Self Care from Last 3 Months Social History Tobacco Use Types Packs/Day Years Used Date Smoking Tobacco: Never Assessed Sex and Gender Information Value Date Recorded Sex Assigned at Not on file Legal Sex Male 7:56 AM EST Gender Identity Not on file Sexual Orientation Not on file Plan of Treatment Health Maintenance Due Date Last Done Comments Colorectal Cancer Screening: Colonoscopy 1956 Diabetes: Annual GFR (Glomerular Filtration Rate) 1956 Diabetes: Annual Foot Exam 1966 Diabetes: Annual Retina Eye Exam 1966 DTaP,Tdap,and Td Vaccines (1 - Tdap) 08/05/1975 Depression Screening 04/30/2024 Abdominal Aortic Aneurysm (AAA) Screen 10/01/2024 Cholesterol Screening (Lipid Panel) 10/01/2024 Diabetes: Annual Urine Albumin-Creatinine Ratio (uACR) 10/01/2024 Diabetes: Blood Sugar Control Test (HGBA1C) 10/01/2024 Falls Risk Assessment 10/01/2024 Hepatitis C Screening 10/01/2024 Hypertension/CHF/CAD Annual BMP Blood Test 10/01/2024 Social Influencers of Health Screening 10/01/2024 COVID-19 Vaccine ( season) 2024 03/20/2021, 08/17/2020, 07/20/2020 Influenza Vaccine (#1) 2024 , 04/12/2022, 02/14/2021, Additional history exists RSV Immunization Adult Patients (1 - 1-dose 75+ series) 08/05/2031 Zoster Vaccines Completed 06/17/2020, 04/08/2020 Pneumococcal Vaccine: 50+ Years Completed 09/18/2022, 04/02/2020 HIB Vaccines Aged Out No longer eligi [...] to complete this topic RSV Immunization Patients Under 20 months Aged Out No longer eligible based on patient's age to complete this topic Varicella Vaccines Aged Out No longer eligible based on patient's age to complete this topic Procedures Procedure Name Priority Date/Time Associated Diagnosis Comments TILT TABLE Routine 12/23/2024 1:18 PM EDT Syncope and collapse from Last 3 Months Results * Tilt table (12/23/2024 1:18 PM EDT) Anatomical Region Laterality Modality Radiographic Lily ging Narrative 12/23/2024 1:55 PM EDT Pt is taking 10 mg Lisinopril in the AM and is only taking Carvedilol 3.125 in the evening per his PCP. Tilt Table The patient was brought to lab in fasting state. Patient lied supine for 5 minutes for equilibrium. Baseline ECG showed normal sinus rhythm. Baseline supine minimum BP: 119/58 mmHg Baseline supine minimum HR: 89 bpm Patient tilted to 70 degrees. Tilt maintained for 20 minutes. Minimum BP during tilt: 117/70 mmHg Maximum BP during tilt: 134/75 mmHg Minimum heart rate during tilt: 92 bpm Maximum heart rate during tilt: 109 bpm There was a clear orthostatic response not noted. Patient experienced no HR increase with tilt. rare multifocal PVC - pt asymptomatic Breanna Malone NP [facility] PROCEDURES Final Result from Last 3 Months Insurance MEDICARE [facility] Care Teams Database Report Writer Relationship Specialty Start Date End Date Yuriy Culp MD PCP - General Internal Medicine 12/29/16
--- OUTSIDE RECORDS SUMMARY | 2025-02-02 13:52 | XMS_ITS | Patient Health Record ---
Author Organization [facility] Address [address] [place] [id number] Care Team Providers Care City Dispatch Supervisor Name Role Phone Tomy HENSON, Dianna Primary Care Provider Deven Donis Unavailable [phone] Reason For Referral No Information Plan Of Treatment No Information Insurance Providers Payer Name Payer Address Payer Phone Subscriber Number Group Number Insured Name Patient Relationship to Insured Coverage Start Date Coverage End Date [facility] [facility] [address] [place] [phone] [id number] KATHERYN THOMPSON Self - patient is the insured
== END 2025-02-02 12:31 | disposition home or self-care (01) ==
LOC: HO.HCS 11:19
PROVIDERS: PCP Internal Medicine; Visit Provider Internal Medicine Cardiovascular Disease
DX: I45.10 Unspecified right bundle-branch block (principal); I10 Essential (primary) hypertension; R93.1 Abnormal findings on diagnostic imaging of heart and coronary circulation
CPT/HCPCS: 99214

== ENCOUNTER 2025-02-27 07:11 | Outpatient (REF) | payer BC, SELFPAY ==
--- OUTSIDE RECORDS SUMMARY | 2025-02-27 07:14 | XMS_ITS | Patient Health Record ---
Author Organization [facility] Address [address] [place] [address] Care Team Providers Care Mechanical Field Engineer Name Role Phone Tomy HENSON, Dianna Primary Care Provider Deven Donis Unavailable [phone] Reason For Referral No Information Plan Of Treatment No Information Insurance Providers Payer Name Payer Address Payer Phone Subscriber Number Group Number Insured Name Patient Relationship to Insured Coverage Start Date Coverage End Date [facility] [address] [place] [phone] [id number] KATHERYN THOMPSON Self - patient is the insured
[2025-02-27 10:38] LABS: Hematocrit 50.2 % (42.0-52.0); Hemoglobin 15.7 g/dl (14.0-18.0)
[2025-02-27 11:18] LABS: Alanine Aminotransferase 18 U/L (0-40); Anion Gap 16 (12-20); Aspartate Amino Transferase 16 U/L (5-37); Blood Urea Nitrogen 30 mg/dL (9-16); Calcium 9.8 mg/dL (8.4-10.2); Carbon Dioxide 22 mmol/L (22-29); Chloride 107 mmol/L (96-108); Cholesterol 162 mg/dL (<200); Estimated Glomerular Filt Rate > 60; HDL Cholesterol 44 mg/dL (>40); Potassium 4.6 mmol/L (3.3-5.1); Sodium 140 mmol/L (135-145); Triglycerides 214 mg/dL (<150)
== END 2025-02-27 07:12 | disposition home or self-care (01) ==
LOC: HO.HMGCLDS 07:11
PROVIDERS: PCP Internal Medicine; Visit Provider Internal Medicine
DX: Z00.01 Encounter for general adult medical examination with abnormal findings (principal); K21.9 Gastro-esophageal reflux disease without esophagitis; E11.65 Type 2 diabetes mellitus with hyperglycemia; I10 Essential (primary) hypertension; I95.1 Orthostatic hypotension; E78.2 Mixed hyperlipidemia; Z78.9 Other specified health status
CPT/HCPCS: 36415; 80048; 80061; 83036; 84450; 84460; 85014; 85018

== ENCOUNTER 2025-03-05 13:20 | Outpatient (AMB) | payer BC, SELFPAY ==
[2025-03-05 13:32] VITALS: BP 124/80; PULSE 86; RESP 16; TEMP 36.7; O2SAT 99; BMI 28.6
--- NOTE | 2025-03-05 13:32 | A.OFFPC_ITS ---
Vital Signs 03/05/25 13:32 Height 5 ft 5 in Weight 172 lb BMI 28.6 BP 124/80 Blood Pressure Location Lt brachial Position Sitting Respiration 16 Pulse 86 Pulse Source Pulse Oximeter Temp 98.0 F Temp Source Oral Pulse Oximetry (%) 99 Oxygen Delivery Method Room Air Intake Visit Reasons: 3m follow up Intake Note: Pt is here today for his 3mo. f/u Retirement Officer Required: No Allergies barium sulfate Allergy (Intermediate, Verified 03/14/25 13:27) rash varenicline Allergy (Intermediate, Verified 03/14/25 13:27) rash Medication List - Last Reconciled 03/14/25 by Dianna Huitron MD bupropion HCl SR 150 mg PO Q OTHER DAY 3 months carvedilol 3.125 mg PO BID empagliflozin (Jardiance) 25 mg PO DAILY famotidine 10 mg PO BEDTIME fluticasone propionate 50 mcg/actuation (Allergy Relief (fluticasone)) 1 spray intranasal BID PRN lisinopril 10 mg (1/2 x 20 mg) PO DAILY loratadine (Allergy Relief (loratadine)) 10 mg PO DAILY metformin 1,000 mg PO BID 90 days Mounjaro (tirzepatide) 2.5 mg (0.5 mL) subcut QWEEK NS Tobacco use date assessed: 03/05/25 Fall risk assessment: 1 Fall in past year Last assessed Fall Risk: 03/05/25 Dental Screening Dental Screen Date: 03/05/25 Did you have a dental visit in the last 12 months?: Yes Did you have a dental problem in the last 6 months where you did not have access to dental care?: No Was dental information given to patient?: Patient has dentist HPI 3m follow up HPI Details The patient is a 69-year-old male presenting forfollow up of uncontrolled type 2 diabetes. His recent hemoglobin A1c was 9.6% despite being on metformin and the maximum dose of Jardiance. He was previously on Ozempic but discontinued it due to side effects of heartburn and constant eructation. The patient has a history of hypertension, managed with lisinopril 10 mg and a low dose of carvedilol. He reports his blood pressure this morning was 124/74 mmHg with a pulse of 82. His cholesterol levels are noted to be very good, which he attributes to a diet rich in fish and chicken. The patient reports having psoriasis on both elbows and behind his ears, which tends to flare up in colder weather. He uses his 's clobetasol cream for these flares. last diabetic eye exam was in July and was normal. He is up to date on pneumonia and shingles vaccines but is due for a tetanus booster, with his last one being in 2012. 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 [facility] Medical History (Updated 03/05/25 @ 14:24 by Dianna Huitron MD) Syncope Orthostatic hypotension Syncope History of right inguinal hernia Hx of syncope (~2021) Anxiety Vitamin D deficiency Rash and nonspecific skin eruption RBBB (right bundle branch block) Sinus tachycardia by electrocardiogram Mixed dyslipidemia Hx of skin cancer, basal cell Epiploic appendagitis Seasonal allergic rhinitis Hypertriglyceridemia Family history of prostate cancer Prostate cancer screening Essential hypertension Diabetes mellitus with hyperglycemia, without long-term current use of insulin Surgical History History of esophagogastroduodenoscopy (EGD) History of inguinal hernia repair History of colonoscopy H/O arthroscopy of shoulder History of basal cell carcinoma excision History of tonsillectomy Family History Father Stroke Aneurysm Cancer of prostate Mother Asbestos exposure Lung cancer Smoker Maternal Grandfather No problems noted. Maternal Grandmother No problems noted. Paternal Grandfather No problems noted. Paternal Grandmother No problems noted. Maternal Aunt Diabetes mellitus Sister No problems noted. Social History Household Members: Significant Other Housing: House Are you a primary home care provider to a significant other at home: No Do you presently have visiting nurse or other home services: No Alcohol intake: current Alcohol intake frequency: a few times a week Alcohol type: wine Patient Tobacco Use Status: Former Tobacco user Tobacco use type: Cigarette e-Cigarette/Vaping Use: Never Used Substance Use Type: Marijuana service: No Current occupational status: employed Cognitive needs: No Hearing needs: No Vision needs: Yes Questionnaire PHQ-9 Over the last 2 weeks, how often have you been bothered by any of the following problems? 1. Little interest or pleasure in doing things: not at all 2. Feeling down, depressed, or hopeless: not at all 3. Trouble falling or staying asleep, or sleeping too much: not at all 4. Feeling tired or having little energy: not at all 5. Poor appetite or overeating: not at all 6. Feeling bad about yourself - or that you are a failure or have let yourself or your family down: not at all 7. Trouble concentrating on things, such as reading the newspaper or watching television: not at all 8. Moving or speaking so slowly that other people could have noticed. Or the opposite - being so fidgety or restless that you have been moving around a lot more than usual: not at all 9. Thoughts that you would be better off or of hurting yourself in some way: not at all Total score: 0 Depression Screening Interpretation: Negative Depression Screening Done: Yes Source: Developed by Drs. Deven Carrizales, Nela Rowe, Deandre Phipps and colleagues, with an educational emili from [employer]. Thrive Questionnaire Date Thrive assessed: 07/22/24 I am a: Patient What is your living situation today?: I have a steady place to live Within the past 12 months, did the food you bought not last and you didn't have the money to get more?: I choose not to answer this question Within the past 12 months, did you worry whether your food would run out before you got money to buy more?: I choose not to answer this question Do you have trouble paying for medicines?: I choose not to answer this question Do you have trouble getting transportation to medical appointments?: I choose not to answer this question Do you have trouble paying your heating and electricity bill?: I choose not to answer this question Do you have trouble taking care of your child, family member or friend?: I choose not to answer this question Do you have trouble with day-to-day activities such as bathing, preparing meals, shopping, managing finances, etc.?: I choose not to answer this question Are you currently unemployed and looking for a job?: I choose not to answer this question Are you interested in more education?: I choose not to answer this question Please select the resources that you would like help with: None Currently or been in a relationship where the following occur: I choose not to answer THRIVE Score: 0 AUDIT C Alcohol Use Questionnaire (AUDIT-C) 2. How many drinks containing alcohol do you have on a typical day when you are drinking?: 1 or 2 3. How often do you have six or more drinks on one occasion?: Never Total Score: 0 JE-7 AMB Questionnaire JE-7 Date JE - 7 assessed: 07/22/24 Feeling nervous, anxious, or on edge: 0 = Not at all Not being able to stop or control worryin = Not at all Worrying too much about different things: 0 = Not at all Trouble relaxin = Not at all Being so restless that it is hard to sit still: 0 = Not at all Becoming easily annoyed or irritable: 0 = Not at all Feeling afraid as if something awful might happen: 0 = Not at all Total JE-7 score (0-4 normal; 5-9 mild; 10-14 moderate; 15-21 severe): 0 Source: Developed by Drs. Deven Carrizales, Nela Rowe, Deandre Phipps and colleagues, with an educational emili from [employer]. Review of Systems Const Denies chills, Denies fatigue, Denies fever(s), Denies frequent falls, Denies weakness, Denies weight gain and Denies weight loss ENT Denies dizziness Card Denies chest pain, Denies leg edema, Denies lightheadedness, Denies palpitations, Denies dyspnea and Denies dyspnea on exertion Resp Denies cough, Denies dyspnea and Denies dyspnea on exertion GI Denies hematochezia Reports no additional complaints Musc Denies abnormal gait, Denies muscle weakness, Denies numbness, Denies radiating pain into limb and Denies tingling Neuro Denies abnormal gait, Denies dizziness, Denies frequent falls, Denies numbness, Denies tingling and Denies weakness Psych Reports no additional complaints Endo Denies fatigue and Denies palpitations Raghavendra/Lymph Reports no additional complaints Aller/Immun Reports no additional complaints Physical exam (Primary Care) Vital Signs: Last Vital Signs Temp 98.0 F 03/05/25 13:32 Pulse 86 03/05/25 13:32 Resp 16 03/05/25 13:32 BP 124/80 03/05/25 13:32 Pulse Ox 99 03/05/25 13:32 Oxygen Delivery Method Room Air 03/05/25 13:32 BMI result Body Mass Index 28.6 Tobacco/Smoking Status: Tobacco use Status Tobacco use date assessed 03/05/25 03/05/25 13:40 Patient Tobacco Use Status Former Tobacco user 03/05/25 13:40 Tobacco use type Cigarette 03/05/25 13:40 e-Cigarette/Vaping Use Never Used 03/05/25 13:40 PHQ-9: PHQ-9 Score PHQ-9: Total score 0 03/14/25 13:33 Depression Screening Interpretation: Negative Thrive Assessment: Date of Thrive Assessment Date Thrive assessed 07/22/24 03/05/25 13:40 Currently or been in a relationship where the following occur: I choose not to answer Const General: no acute distress Nutritional Appearance: overweight Orientation/consciousness: patient oriented x3 HENMT Head: Yes normal to inspection Ears: external ears normal General nose exam: Normal external nose present Mouth: oropharynx normal and moist mucous membranes Eyes General: appearance normal, both eyes and all related structures Neck Neck: Yes supple Chest Chest palpation & inspection: normal inspection of the chest Resp Effort & Inspection: normal respiratory effort Auscultation: clear to auscultation bilaterally Cardio Rhythm: regular rhythm Heart sounds: S1 normal heart sound present and S2 normal heart sound present GI Palpation (GI): Soft to palpation, nontender and no guarding Auscultation: normal bowel sounds General: Yes no CVA tenderness Back/Spine/Pelvis Back: no CVA tenderness and No back tenderness Skin General skin exam: no rashes or lesions noted Neuro General: patient oriented x3 Extrem General: Yes full ROM, Yes normal exam except as noted, Yes no joint enlargement, Yes no clubbing, cyanosis or edema, Yes no calf tenderness and Yes normal gait Psych Mental Status: mental status grossly normal Affect: normal affect Results Reviewed Results Reviewed: Name: Fan Lorenzo Jr Age/Sex: 69/M : 1955 Unit#: [id number] Attend Dr: Dianna Huitron MD Re02/27/25 Status: DEP REF Location: [facility] Disch: SPEC : [id number] AYSHA: 02/27/25 STATUS: COMP REQ : [id number] RECD: 02/27/[address] [facility] [address]: Dianna Huitron MD COMP: 02/27/25 ENTERED: 02/27/25 [facility] DR: ORDERED: Met Prof Fast, AST, ALT, Lipid Panel Test Result Flag Reference Sodium 140 135-145 mmol/L Potassium 4.6 3.3-5.1 mmol/L CL 107 96-108 mmol/L CO2 22 22-29 mmol/L Gap 16 12-20 BUN 30 H 9-16 mg/dL Creat 1.02 0.5-1.4 mg/dL eGFR > 60 Chronic Kidney Disease: Estimated GFR < 60 mL/min/1.73m2 Severe Kidney Disease: Estimated GFR < 15 mL/min/1.73m2 FBS 197 H 60-99 mg/dL A fasting glucose of 126 mg/dl or greater on more than one occasion is considered diagnostic of diabetes. CA 9.8 8.4-10.2 mg/dL AST (GOT) 16 5-37 U/L ALT (GPT) 18 0-40 U/L Triglyceride 214 H <150 mg/dL Desirable Triglyceride: less than 150 mg/dL Borderline High Triglyceride 150-199 mg/dL High Triglyceride: 200-499 mg/dL Very High Triglyceride: greater than or equal to 5OO mg/dL Cholesterol 162 <200 mg/dL Desirable Cholesterol: less than 200 mg/dL Borderline High Cholesterol: 200-239 mg/dL High Cholesterol: greater than 239 mg/dL LDL Calculated 76 <100 mg/dL Desirable LDL: less than 100 mg/dL Near Optimal/Above Optimal LDL: 110-129 mg/dL Borderline High LDL: 130-159 mg/dL High LDL: 160-189 mg/dL Very High LDL: greater than or equal to 190 mg/dL HDL 44 >40 mg/dL Desirable HDL: greater than 40 mg/dL Note: This HDL assay may give artificially low results in patients with liver disease. Laboratory Tests 02/27/25 07:24 Hgb 15.7 Hct 50.2 Coding Level of Care Code Est Pt Level 4 (04045) Complex EM visit Add On G2211 Diagnoses Type 2 diabetes mellitus with hyperglycemia, without long-term current use of insulin E11.65 Diabetes mellitus type: type 2 Essential hypertension I10 Mixed dyslipidemia E78.2 Assessment & Plan Assessment & Plan (1) Diabetes mellitus with hyperglycemia, without long-term current use of insulin: Code(s): E11.65 - Type 2 diabetes mellitus with hyperglycemia Category: Medical Qualifiers: Diabetes mellitus type: type 2 Qualified Code(s): E11.65 - Type 2 diabetes mellitus with hyperglycemia (2) Essential hypertension: Code(s): I10 - Essential (primary) hypertension Category: Medical (3) Mixed dyslipidemia: Code(s): E78.2 - Mixed hyperlipidemia Category: Medical Plan Latest HbA1c of 9.6% indicates his diabetes is not well-controlled on current regimen of metformin and Jardiance. Was previously on Ozempic, but caused significant heartburn and burping. Switched to Mounjaro, a once-weekly injection, and to minimize potential nausea, I advised him to eat a bland diet on the day of the injection. We reviewed his lab results, noting his cholesterol is well-controlled, he is no longer anemic, and there is improvement in his kidney function markers. Advised him to get a high-dose flu shot and a tetanus booster. A follow-up appointment is scheduled in three months to assess his response to the new medication. Patient was informed and verbally consented to the use of an ambient scribe for clinic note documentation during this visit. Orders: Orders Lipid Panel 3 Months I10 - Essential (primary) hypertension, E78.2 - Mixed hyperlipidemia, E11.65 - Type 2 diabetes mellitus with hyperglycemia Basic Metabolic Panel Fasting 3 Months I10 - Essential (primary) hypertension, E78.2 - Mixed hyperlipidemia, E11.65 - Type 2 diabetes mellitus with hyperglycemia Aspartate Amino Transferase 3 Months I10 - Essential (primary) hypertension, E78.2 - Mixed hyperlipidemia, E11.65 - Type 2 diabetes mellitus with hyperglycemia Microalbumin, Random (w Creat) 3 Months I10 - Essential (primary) hypertension, E78.2 - Mixed hyperlipidemia, E11.65 - Type 2 diabetes mellitus with hyperglycemia Alanine Aminotransferase 3 Months I10 - Essential (primary) hypertension, E78.2 - Mixed hyperlipidemia, E11.65 - Type 2 diabetes mellitus with hyperglycemia Hemoglobin A1c 3 Months I10 - Essential (primary) hypertension, E78.2 - Mixed hyperlipidemia, E11.65 - Type 2 diabetes mellitus with hyperglycemia Medications: New Mounjaro (tirzepatide) Hemoglobin A1c today is 9.6% , already on metformin and Jardiance 2.5 mg (0.5 mL) subcut QWEEK 2 mL 3RF NS E11.65 - Type 2 diabetes mellitus with hyperglycemia
--- OUTSIDE RECORDS SUMMARY | 2025-03-05 16:14 | XMS_ITS | Patient Health Record ---
[facility] Address [address] [place] [id number] Care Team Providers Care Barrel Brander Name Role Phone Tomy HENSON, Dianna Primary Care Provider Deven Donis Unavailable [phone] Reason For Referral No Information Plan Of Treatment No Information Insurance Providers Payer Name Payer Address Payer Phone Subscriber Number Group Number Insured Name Patient Relationship to Insured Coverage Start Date Coverage End Date [facility] [address] [place] [phone] [id number] KATHERYN THOMPSON Self - patient is the insured
== END 2025-03-05 14:26 | disposition home or self-care (01) ==
LOC: HO.HMCC 13:21
PROVIDERS: PCP Internal Medicine; Visit Provider Internal Medicine
DX: E11.65 Type 2 diabetes mellitus with hyperglycemia (principal); I10 Essential (primary) hypertension; E78.2 Mixed hyperlipidemia

== ENCOUNTER 2025-03-12 07:07 | Outpatient (REF) | payer BC, SELFPAY ==
--- OUTSIDE RECORDS SUMMARY | 2025-03-12 07:08 | XMS_ITS | Clinical Summary ---
Author Organization [facility] Address [address] [place] [address] Phone Care Team Providers Care Superintendent Overhead Distribution Name Role Phone Yuriy Culp MD Primary Care Provider Unava ilable Encounters Date Type Department Care Team Description 12/23/2024 12:32 PM EDT - 12/23/2024 11:59 PM EDT Hospital Encounter [facility] Xray [address] [place] [address] Syncope and collapse Discharge Disposition: [...] Result from Last 3 Months Insurance MEDICARE [facility] Care Teams Superintendent Overhead Distribution Relationship Specialty Start Date End Date Yuriy Culp MD PCP - General Internal Medicine 12/29/16
--- OUTSIDE RECORDS SUMMARY | 2025-03-12 07:08 | XMS_ITS | Patient Health Record ---
Author Organization [facility] Address [address] [place] [id number] Care Team Providers Care Copy Lathe Operator Name Role Phone Tomy HENSON, Dianna Primary Care Provider Deven Donis Unavailable [phone] Reason For Referral No Information Plan Of Treatment No Information Insurance Providers Payer Name Payer Address Payer Phone Subscriber Number Group Number Insured Name Patient Relationship to Insured Coverage Start Date Coverage End Date [facility] [address] [place] [phone] [id number] KATHERYN THOMPSON Self - patient is the insured
[2025-03-12 11:40] LABS: Anion Gap 13 (12-20); Blood Urea Nitrogen 28 mg/dL (9-16); Calcium 9.9 mg/dL (8.4-10.2); Carbon Dioxide 25 mmol/L (22-29); Chloride 106 mmol/L (96-108); Estimated Glomerular Filt Rate > 60; Potassium 4.6 mmol/L (3.3-5.1); Sodium 139 mmol/L (135-145)
== END 2025-03-12 07:08 | disposition home or self-care (01) ==
LOC: HO.HMGCLDS 07:07
PROVIDERS: PCP Internal Medicine; Visit Provider Internal Medicine Cardiovascular Disease
DX: I10 Essential (primary) hypertension (principal)
CPT/HCPCS: 36415; 80048